=== PATIENT | male | born 1940 | race Caucasian/White ===

== ENCOUNTER 2018-11-28 04:32 | Inpatient (IN) | payer MEDICARE ==
[2018-11-28] MEDS ORDERED: SODIUM CHLORIDE 0.9% 1,000 ML IV STA (04:40)
[2018-11-28] MEDS ORDERED: NITROGLYCERIN OINT 1 INCH/GM PACKET TOPICAL STA (04:40)
--- NOTE | 2018-11-28 04:44 | ED ---
Chest Pain HPI - General Chief Complaint: Chest Pain Stated Complaint: Chest Pain Time Seen by Provider: 11/28/18 04:40 Source: patient, EMS Mode of arrival: EMS Limitations: no limitations - History of Present Illness Initial Comments: Rony is a 78-year-old gentleman with an extensive cardiac history including CABG in his mid 30s or 40s. Patient presents the emergency department today via EMS for evaluation of sudden onset of chest pain. Patient reports he was in his usual state of health throughout the day yesterday he woke around 2 AM with chest pain. He describes the pain as kind of sharp retrosternal with radiation to his back. He reports this doesn't feel like chest pain he's had in the past that he was concerned the pain may be in his lungs. He denies any shortness of breath but does report palpitations. She denies any lightheadedness, diaphoresis or shortness of breath. He reports he got aspirin and nitro in route to the hospital his chest pain improved significantly with the sublingual nitro. - Related Data Home Medications Medication Instructions Recorded Confirmed Aspirin [Golovin Aspirin EC] 81 mg PO DAILY 11/28/18 11/28/18 Carvedilol [Coreg] 3.125 mg PO BID 11/28/18 11/28/18 Doxazosin [Cardura] 4 mg PO DAILY 11/28/18 11/28/18 Isosorbide Mononitrate 35 mg PO BID 11/28/18 11/28/18 Lovastatin [Mevacor] 40 mg PO DAILY 11/28/18 11/28/18 Repaglinide 0.5 mg PO BID 11/28/18 11/28/18 amLODIPine [Norvasc] 5 mg PO DAILY 11/28/18 11/28/18 Allergies Allergy/AdvReac Type Severity Reaction Status Date / Time No Known Allergies Allergy Verified 11/28/18 08:19 Review of Systems ROS Statement: Those systems with pertinent positive or pertinent negative responses have been documented in the HPI. ROS Other: All systems not noted in ROS Statement are negative. EKG Findings - EKG Comments: EKG Findings:: EKG was obtained at 4:30 AM, rate is 119 rhythm is sinus there is a normal axis, normal intervals, WI 208, QRS 108, QTC is 503, there are no obvious ST elevations or depressions or significant respiratory variation in lead V3. No evidence of acute ischemia or infarction. Past Medical History Past Medical History: No Reported History, Coronary Artery Disease (CAD), Chest Pain / Angina History of Any Multi-Drug Resistant Organisms: None Reported Past Surgical History: Adenoidectomy, Cholecystectomy, Coronary Bypass/CABG Past Psychological History: No Psychological Hx Reported Smoking Status: Former smoker Past Alcohol Use History: None Reported Past Drug Use History: None Reported General Exam - General Exam Comments Initial Comments: Physical Exam GENERAL: Patient is well-developed and well-nourished. Patient is nontoxic and well- hydrated and is in no distress. HENT: Normocephalic, Atraumatic. EYES: PERRL, EOMI PULMONARY: Unlabored respirations. No audible rales rhonchi or wheezing was noted. CARDIOVASCULAR: There is a regular rate and rhythm without any murmurs gallops or rubs. Well-healed midline sternal scar consistent with history of CABG Pulses are present and equal in bilateral upper extremities ABDOMEN: Soft and nontender with normal bowel sounds. SKIN: Skin is clear with no lesions or rashes and otherwise unremarkable. : Deferred NEUROLOGIC: Patient is alert and oriented x3. Moving all extremities spontaneously MUSCULOSKELETAL: Normal extremities with adequate strength and full range of motion. No lower extremity swelling or edema. No calf tenderness. PSYCHIATRIC: Normal psychiatric evaluation. Limitations: no limitations Limitations: no limitations Course Vital Signs 11/28/18 11/28/18 11/28/18 04:33 04:58 05:55 Temperature 98.0 F Pulse Rate 118 H 114 H Pulse Rate [ 120 H Utility Hand ] Respiratory 20 19 Rate Blood Pressure 151/93 140/95 Blood Pressure [Right Arm Sitting] O2 Sat by Pulse 95 96 Oximetry 11/28/18 11/28/18 11/28/18 08:01 08:30 09:30 Temperature 98.8 F Pulse Rate 115 H 117 H Pulse Rate [ 74 Utility Hand ] Respiratory 16 18 23 Rate Blood Pressure 133/82 127/72 Blood Pressure 116/60 [Right Arm Sitting] O2 Sat by Pulse 98 95 95 Oximetry 11/28/18 11/28/18 11/28/18 10:00 10:30 11:00 Temperature Pulse Rate 118 H 117 H 117 H Pulse Rate [ Utility Hand ] Respiratory 21 21 20 Rate Blood Pressure 124/102 121/92 135/91 Blood Pressure [Right Arm Sitting] O2 Sat by Pulse 95 94 L 94 L Oximetry 11/28/18 11/28/18 11/28/18 11:30 12:00 12:30 Temperature Pulse Rate 116 H 117 H 117 H Pulse Rate [ Utility Hand ] Respiratory 13 18 19 Rate Blood Pressure 114/93 134/101 136/95 Blood Pressure [Right Arm Sitting] O2 Sat by Pulse 95 95 95 Oximetry 11/28/18 11/28/18 11/28/18 13:00 13:30 14:00 Temperature Pulse Rate 118 H 116 H 116 H Pulse Rate [ Utility Hand ] Respiratory 28 H 18 7 L Rate Blood Pressure 132/100 132/95 132/97 Blood Pressure [Right Arm Sitting] O2 Sat by Pulse 96 95 96 Oximetry 11/28/18 11/28/18 11/28/18 14:30 15:00 15:30 Temperature Pulse Rate 116 H 116 H 116 H Pulse Rate [ Utility Hand ] Respiratory 19 24 9 L Rate Blood Pressure 149/91 144/96 139/109 Blood Pressure [Right Arm Sitting] O2 Sat by Pulse 95 96 Oximetry 11/28/18 11/28/18 16:00 18:00 Temperature Pulse Rate 117 H Pulse Rate [ Utility Hand ] Respiratory 25 H Rate Blood Pressure 146/96 119/70 Blood Pressure [Right Arm Sitting] O2 Sat by Pulse 95 Oximetry Chest Pain MDM - MDM was seen and evaluated history was obtained from EMS and the patient has sinus patient has significant cardiac history presenting with chest pain. Patient does report he had some chest pain a couple of days ago resolved he didn't seek care. Patient reports he woke from sleep with stabbing chest pain radiating from his chest to his back between the shoulders. Patient reports the pain persisted for some time which prompted him to call 911. History with aspirin and nitro in route to the hospital with resolution of his chest pain. EMS EKG was reviewed which did reveal some possible ST depressions in the lateral leads however there is significant movement artifact repeat EKG will be obtained immediately A repeat EKG appears nonischemic Cardiac workup was obtained Patient was reevaluated and reports that his chest pain is returning despite having the Nitropaste. Patient describes the pain as a stabbing from his sternum to his back. At this time CT angiography of the chest was ordered to evaluate for any possible dissection. Initial troponin is negative however given that the patient is very high risk for cardiac etiology and is not on any anticoagulant or antiplatelet medications I will proceed with heparinization if CTA is negative CTA with no acute findings Patient care was discussed with Dr. tyler who accepts the admission with a consult to cardiology for stable angina and an elderly gentleman with multiple cardiac risk factors and known coronary artery disease. Disposition Clinical Impression: Unstable angina Disposition: ADMITTED IP TO THIS HOSP Is patient prescribed a controlled substance at d/c from ED?: No
[2018-11-28 04:52] LABS: Basophils % (A) 0 %; Eosinophils # (A) 0.3 k/uL (0-0.7); Eosinophils % (A) 4 %; HCT 45.2 % (39.0-53.0); HGB 14.9 gm/dL (13.0-17.5); Lymphocytes # (A) 1.4 k/uL (1.0-4.8); Lymphocytes % (A) 19 %; MCH 30.4 pg (25.0-35.0); MCV 92.2 fL (80.0-100.0); Mean Platelet Volume 7.7; Monocytes # (A) 0.6 k/uL (0-1.0); Monocytes % (A) 8 %; Neutrophils # (A) 4.9 k/uL (1.3-7.7); Neutrophils % (A) 67 %; Platelet Count 170 k/uL (150-450); RDW 13.8 % (11.5-15.5); WBC 7.3 k/uL (3.8-10.6)
--- NOTE | 2018-11-28 05:00 | XR ---
EXAM: XR Chest, 2 Views CLINICAL HISTORY: Chest pain. TECHNIQUE: Frontal and lateral views of the chest. COMPARISON: No relevant prior studies available. FINDINGS: Lungs: Poorly defined left cardiac border and possible subtle basilar opacities which may represent atelectasis. Lungs otherwise clear. Pleural space: No pleural effusion. No pneumothorax. Heart: Cardiac silhouette poorly defined. Mediastinum: Postsurgical changes of the chest. No mediastinal widening. Bones/joints: Osseous degenerative changes. IMPRESSION: 1. Poorly defined left cardiac border and possible subtle basilar opacities which may represent atelectasis. Lungs otherwise appear clear. 2. Postsurgical changes of the chest.
[2018-11-28 05:01] LABS: Partial Thromboplastin Time 23.6 sec (22.0-30.0); Prothrombin Time 10.5 sec (9.0-12.0)
[2018-11-28 05:03] LABS: ALT 31 U/L (21-72); AST 25 U/L (17-59); Albumin 3.9 g/dL (3.5-5.0); Alkaline Phosphatase 74 U/L (38-126); Anion Gap 8 mmol/L; Blood Urea Nitrogen 21 mg/dL (9-20); Calcium 9.4 mg/dL (8.4-10.2); Carbon Dioxide 27 mmol/L (22-30); Chloride 105 mmol/L (98-107); Glucose 143 mg/dL (74-99); Magnesium 2.1 mg/dL (1.6-2.3); Potassium 4.4 mmol/L (3.5-5.1); Sodium 140 mmol/L (137-145); Total Bilirubin 1.4 mg/dL (0.2-1.3); Total Protein 6.5 g/dL (6.3-8.2)
[2018-11-28 05:28] LABS: Creatine Kinase MB 0.6 ng/mL (0.0-2.4); Troponin I 0.032 ng/mL (0.000-0.034)
[2018-11-28] MEDS ORDERED: CARVEDILOL 3.125 MG TAB PO STA (05:47)
[2018-11-28] MEDS ORDERED: ATORVASTATIN 20 MG TAB PO STA (05:47)
[2018-11-28] MEDS ORDERED: amLODIPine 5 MG TAB PO STA (05:47)
[2018-11-28] MEDS ORDERED: HEPARIN SODIUM,PORCINE 5,000 UNIT/ML 1 ML VIAL IV PRN (05:50)
[2018-11-28] MEDS ORDERED: HEPARIN SODIUM,PORCINE 5,000 UNIT/ML 1 ML VIAL IV ONE (05:50)
[2018-11-28] MEDS ORDERED: NALOXONE 0.4 MG/ML 1 ML VIAL IV PRN (07:08)
--- NOTE | 2018-11-28 08:01 | CT ---
EXAM: CT Angiography Chest With Intravenous Contrast CLINICAL HISTORY: Pain. TECHNIQUE: Axial computed tomographic angiography images of the chest with intravenous contrast using pulmonary embolism protocol. MIP reconstructed images were created and reviewed. Coronal and sagittal reformatted images were created and reviewed. CTDI is 11.7 mGy and DLP is 450.3 mGy-cm. This CT exam was performed using one or more of the following dose reduction techniques: automated exposure control, adjustment of the mA and/or kV according to patient size, and/or use of iterative reconstruction technique. COMPARISON: No relevant prior studies available. FINDINGS: Pulmonary arteries: No evidence of pulmonary embolism. Aorta: Atherosclerotic vascular disease. No thoracic aortic aneurysm. Great vessels of aortic arch: Lungs: Mild scattered atelectasis. No focal consolidation or pulmonary edema. Pleural space: No pleural effusion. No pneumothorax. Heart: Mild enlargement of left cardiac chambers. Coronary artery disease. No pericardial effusion. Bones/joints: Osseous degenerative changes. No acute fracture. No dislocation. Sternotomy wires and postsurgical changes of the chest. Soft tissues: Unremarkable. Lymph nodes: Unremarkable. No enlarged lymph nodes. Visualized upper abdomen: No evidence of acute abnormality in the visualized upper abdomen. IMPRESSION: 1. No evidence of pulmonary embolism or other acute chest abnormality to account for pain. 2. Atherosclerotic vascular disease without thoracic aortic aneurysm. 3. Mild scattered atelectasis. No focal consolidation or pulmonary edema. 4. Mild left cardiac enlargement. No pericardial effusion.
[2018-11-28] MEDS: HEPARIN SOD,PORK IN 0.45% NACL 25,000 UNIT in 0.45% NACL 1 250ML.BAG IV SCH (08:26)
[2018-11-28] MEDS: ISOSORBIDE MONONITRATE 20 MG TAB PO SCH ×2 (08:26→17:31)
[2018-11-28] MEDS: SODIUM CHLORIDE 0.9% 1,000 ML IV SCH ×2 (08:32→17:32)
[2018-11-28] MEDS ORDERED: DOXAZOSIN 4 MG TAB PO SCH (09:00)
[2018-11-28 13:53] LABS: Creatine Kinase MB 4.5 ng/mL (0.0-2.4)
[2018-11-28 14:17] LABS: Troponin I 0.433 ng/mL (0.000-0.034)
--- NOTE | 2018-11-28 14:57 | P.HPIM ---
History of Present Illness This is a pleasant 78 years old female with past medical history of coronary artery disease, hypertension, hyperlipidemia, diabetes mellitus, presents because of chest pain. Patient states that about couple days ago he developed chest pain, and that went away. However he woke up this morning about 2:00 in the morning he was going to the bathroom when he noticed that having the same chest pain which was getting more severe and he rated at 7/1 ,. Of note the patient although is called the chest pain he actually his pain in the left arm and the back with nothing in his chest, patient says that he has previous to heart attack before and usually lasts how he comes pain of the same places and the same feeling however this time is more severe. [place] like burning. However with therapy currently his chest pain came back to 0/10 Masters a history as pain-free. No associated sweating, no dizziness or lightheadedness, he has some chest tightness but no dyspnea. No nausea vomiting. Usually his heart rate 60 however currently on this admission his heart rate was going up around 120. Patient states that usually he takes aspirin 81 mg and he got 1 dose this morning by the ambulance staff. On admission her Vitas looks stable however she's been tachycardic around 120. CBC and BMP and liver enzymes were unremarkable however her troponin was trending up from 0.03 up to 0.43. EKG showing sinus tachycardia at 119 with QTC [address] elevation. Ordered by emergency staff, She has negative CTPA for pulmonary embolism, no aortic aneurysm. In the emergency room she is already started on heparin drip. Started on normal saline at 100 mL per hour Review of Systems CONSTITUTIONAL: No fever, no malaise, no fatigue. HEENT: No recent visual problems or hearing problems. Denied any sore throat. CARDIOVASCULAR: No orthopnea, PND, no palpitations, no syncope. PULMONARY: No shortness of breath, no cough, no hemoptysis. GASTROINTESTINAL: No diarrhea, no nausea, no vomiting, no abdominal pain. Normoactive bowel sounds. NEUROLOGICAL: No headaches, no weakness, no numbness. HEMATOLOGICAL: Denies any bleeding or petechiae. GENITOURINARY: Denies any burning micturition, frequency, or urgency. MUSCULOSKELETAL/RHEUMATOLOGICAL: Denies any joint pain, swelling, or any muscle pain. ENDOCRINE: Denies any polyuria or polydipsia. Past Medical History Past Medical History: No Reported History, Coronary Artery Disease (CAD), Chest Pain / Angina History of Any Multi-Drug Resistant Organisms: None Reported Past Surgical History: Adenoidectomy, Cholecystectomy, Coronary Bypass/CABG Past Psychological History: No Psychological Hx Reported Smoking Status: Former smoker Past Alcohol Use History: None Reported Past Drug Use History: None Reported Medications and Allergies Home Medications Medication Instructions Recorded Confirmed Type Aspirin [Parke Aspirin EC] 81 mg PO DAILY 11/28/18 11/28/18 History Carvedilol [Coreg] 3.125 mg PO BID 11/28/18 11/28/18 History Doxazosin [Cardura] 4 mg PO DAILY 11/28/18 11/28/18 History Isosorbide Mononitrate 35 mg PO BID 11/28/18 11/28/18 History Lovastatin [Mevacor] 40 mg PO DAILY 11/28/18 11/28/18 History Repaglinide 0.5 mg PO BID 11/28/18 11/28/18 History amLODIPine [Norvasc] 5 mg PO DAILY 11/28/18 11/28/18 History Allergies Allergy/AdvReac Type Severity Reaction Status Date / Time No Known Allergies Allergy Verified 11/28/18 08:19 Physical Exam Vitals: Vital Signs Temp Pulse Pulse Resp BP Pulse Ox 11/28/18 10:00 118 H 21 124/102 95 11/28/18 09:30 117 H 23 127/72 95 11/28/18 08:30 115 H 18 133/82 95 11/28/18 05:55 114 H 19 140/95 96 11/28/18 04:58 120 H 11/28/18 04:33 98.0 F 118 H 20 151/93 95 Intake and Output 11/27/18 11/28/18 11/28/18 22:59 06:59 14:59 Intake Total 54.725 Balance 54.725 Intake: Intake, IV Titration 54.725 Amount Heparin Sod,Pork in 0.45% 54.725 NaCl 25,000 unit In 0.45 % NaCl 1 250ml.bag @ 9 UNITS/KG/HR 9.92 mls/hr IV .Q24H [facility] Rx#: [id number] Other: Weight 110.223 kg GENERAL: The patient is alert and oriented x3, not in any acute distress. Well developed, well nourished. HEENT: Pupils are round and equally reacting to light. EOMI. No scleral icterus. No conjunctival pallor. Normocephalic, atraumatic. No pharyngeal erythema. No thyromegaly. CARDIOVASCULAR: S1 and S2 present. No murmurs, rubs, or gallops. PULMONARY: Chest is clear to auscultation, no wheezing or crackles. ABDOMEN: Soft, nontender, nondistended, normoactive bowel sounds. No palpable organomegaly. MUSCULOSKELETAL: No joint swelling or deformity. EXTREMITIES: No cyanosis, clubbing, or pedal edema. NEUROLOGICAL: Gross neurological examination did not reveal any focal deficits. SKIN: No rashes. Results CBC & Chem 7: 11/28/18 04:42 11/28/18 04:42 Labs: Abnormal Lab Results - Last 24 Hours (Table) 11/28/18 11/28/18 11/28/18 Range/Units 04:42 12:39 12:39 APTT 78.2 H (22.0-30.0) sec BUN 21 H (9-20) mg/dL Glucose 143 H (74-99) mg/dL Total Bilirubin 1.4 H (0.2-1.3) mg/dL CK-MB (CK-2) 4.5 H (0.0-2.4) ng/mL Troponin I 0.433 H* (0.000-0.034) ng/mL Assessment and Plan Assessment: Chest pain, Mostly non-STEMI Tachycardia, mostly secondary to above History of coronary artery disease Essential hypertension Hyperlipidemia Diabetes mellitus Plan: This is a pleasant 78 years old male who presents because of non-STEMI. Continue with aspirin and anticoagulation as per cardiology team. Cardiology has been already consulted. Continue with pain management Labs and medication were reviewed.. Continue same treatment. Continue with symptomatic treatment. Resume home medication. Monitor lytes and vitals. DVT and GI prophylaxis. Further recommendations of the clinical course of the patient DVT prophylaxis: heparin GI Prophylaxis: Pepcid Prognosis is guarded
[2018-11-28] MEDS ORDERED: DILTIAZEM DRIP BOLUS FROM BAG 1 MG SOLN IV ONE (16:43)
[2018-11-28 17:13] LABS: Troponin I 1.03 ng/mL (0.000-0.034)
[2018-11-28] MEDS: DILTIAZEM 50 MG in SODIUM CHLORIDE 0.9% 40 ML IV SCH ×2 (17:24→21:11)
[2018-11-28] MEDS: DOXAZOSIN 4 MG TAB PO SCH (22:23)
[2018-11-29 02:37] LABS: Basophils % (A) 1 %; Eosinophils # (A) 0.3 k/uL (0-0.7); Eosinophils % (A) 3 %; HCT 42.7 % (39.0-53.0); HGB 13.1 gm/dL (13.0-17.5); Lymphocytes # (A) 1.4 k/uL (1.0-4.8); Lymphocytes % (A) 15 %; MCH 29.6 pg (25.0-35.0); MCHC 30.8 g/dL (31.0-37.0); MCV 96.3 fL (80.0-100.0); Mean Platelet Volume 7.3; Monocytes # (A) 0.7 k/uL (0-1.0); Monocytes % (A) 7 %; Neutrophils # (A) 6.8 k/uL (1.3-7.7); Neutrophils % (A) 72 %; Platelet Count 180 k/uL (150-450); RBC 4.43 m/uL (4.30-5.90); RDW 13.9 % (11.5-15.5); WBC 9.4 k/uL (3.8-10.6)
[2018-11-29] MEDS: DILTIAZEM 50 MG in SODIUM CHLORIDE 0.9% 40 ML IV SCH ×3 (04:02→12:37)
[2018-11-29] MEDS: SODIUM CHLORIDE 0.9% 1,000 ML IV SCH ×2 (04:03→12:43)
[2018-11-29] MEDS: HEPARIN SOD,PORK IN 0.45% NACL 25,000 UNIT in 0.45% NACL 1 250ML.BAG IV SCH (05:05)
[2018-11-29 05:25] LABS: Glucose,Whole Blood 122 mg/dL (75-99)
[2018-11-29] MEDS: ISOSORBIDE MONONITRATE 20 MG TAB PO SCH ×2 (08:38→22:38)
[2018-11-29] MEDS: ATORVASTATIN 40 MG TAB PO SCH (08:38)
[2018-11-29] MEDS ORDERED: METOPROLOL SUCCINATE (ER) 25 MG TAB.ER.24H PO SCH (09:00)
[2018-11-29 09:52] LABS: Cholesterol 114 mg/dL (<200); HDL Cholesterol 41 mg/dL (40-60); LDL Cholesterol,Calculated 48 mg/dL (0-99); Triglycerides 123 mg/dL (<150)
--- NOTE | 2018-11-29 12:04 | CONS ---
CONSULTATION Mr. Gruber is a 78-year-old gentleman who is seen in the emergency room for cardiac evaluations. The patient's electronic medical records and charts, EKGs were reviewed and discussed the condition with the nurse. The patient has a known history of coronary artery disease with a prior history of coronary artery bypass surgery times two. According to him, the last cardiac surgery was done about 36 years ago and has been doing fairly well. He is regularly followed by Dr. Brock Velasquez. He woke up this morning with a complaint of pain in both arms, back pain as well as chest tightness. The pain persisted. He did not have any nausea or vomiting. He was slightly diaphoretic and the patient came to the emergency room. In the emergency room, patient was noticed to be tachycardic. According to the patient, he usually runs a heart rate of 60. A CT scan was negative for pulmonary embolism. At present the patient is comfortable. PAST MEDICAL HISTORY: Includes a history of coronary artery bypass surgery, appendicectomy, cholecystectomy. HOME MEDICATIONS: Home medications included: Aspirin once a day, Coreg 3.125 mg b.i.d., Cardura, Amlodipine 5 mg a day. PHYSICAL EXAMINATION: At present reveals a 78 -year-old acute distress. The patient's heart rate is 120 to 125. It appears to be irregularly irregular. Blood pressure is 143/83 mmHg. HEENT: Head and ENT examination is negative. NECK is supple. There is no increase in jugular venous pressure. Both the carotid pulses are felt. There is no bruit. CHEST: Symmetrical. HEART: The PMI is not felt. First and 2nd sounds are heard. LUNGS: Fairly clear to auscultation and percussion. ABDOMEN: Soft. Liver and spleen not enlarged. Bowel sounds are heard. Chest x-ray does not show any significant failure. Second troponin is . FINAL IMPRESSION: 1. This patient came to the emergency room with a complaint of chest discomfort. The patient has elevated cardiac enzymes suggestive of non ST-segment elevation myocardial infarction. The patient's BNP level is normal. 2. Patient is in atrial flutter with 2-1 conduction. RECOMMENDATIONS: At present, I will start the patient on Cardizem drip to control the rate and continue to follow serial troponins. Echo and Doppler study will be done. After the patient's heart rate is controlled, patient will need further evaluation with a cardiac catheterization. Patient's overall long-term prognosis is guarded. MMODL / IJN: [id number] /
[2018-11-29] MEDS: METOPROLOL TARTRATE 50 MG TAB PO SCH ×2 (12:38→22:34)
[2018-11-29] MEDS: ASPIRIN 81 MG PO SCH (12:38)
[2018-11-29] MEDS: FUROSEMIDE 10 MG/ML 2 ML VIAL IV SCH ×2 (12:39→22:34)
[2018-11-29] MEDS ORDERED: IPRATROPIUM-ALBUTEROL 3 ML NEB INHALATION PRN (13:40)
--- NOTE | 2018-11-29 14:44 | CONS ---
STELLA Uribe is a 78-year-old gentleman with history of coronary artery disease status post CABG, who was admitted to the hospital with chest pain and ruled in for myocardial infarction. He also has new onset atrial fibrillation with somewhat of a poorly controlled ventricular rate. At the time of my evaluation this morning he is chest pain-free, hemodynamically stable and in no apparent distress. Dr. Brock Velasquez is his primary registered nurse cardiovascular icu. I asked him to do heart catheterization on him. He will do this tomorrow. EXAM: Patient appears comfortable at rest. Afebrile. Heart rate is 110 beats per minute. Blood pressure is 130/86, respiratory rate is 18, O2 sat is 94%. There is jugular venous distention. Chest exam reveals good air entry bilaterally. Heart exam reveals first and second heart sounds. No gallop. Abdomen is soft. Exam of extremities did not reveal any edema. Peripheral pulses are felt. LABS: Show that the hemoglobin is 13.1. Troponins are elevated at 0.03, 0.4 and 1. BNP is 1090. Creatinine is 0.87. We do not have a lipid profile, will obtain it. ASSESSMENT: Acute non ST-segment elevation myocardial infarction. PLAN: The patient is currently on IV heparin which I am going to continue. Dr. Velasquez will review his old records and schedule him for a catheterization tomorrow. JOSE MANUEL / JAYLYNN: [id number] /
--- NOTE | 2018-11-29 16:35 | P.PN ---
Subjective 72-year-old admitted secondary to acute non-ST elevation microinfarction and the atrial fibrillation with rapid unclear rate. Patient on IV heparin will undergo cardiac catheterization tomorrow patient is presently on Cardizem. Patient is on Eliquis which is being held at this time. Constitutional: Denied any fatigue denied any fever. Cardio vascular: denied any chest pain, palpitations Gastrointestinal denied any nausea vomiting Pulmonary: Denied any shortness of breath cough Neurologic denied any new focal deficits All inpatient medications were reviewed and appropriate changes in these medications as dictated in the interval history and assessment and plan. Objective - Vital Signs Vital signs: Vital Signs Temp 97.7 F 11/29/18 16:00 Pulse 63 11/29/18 16:00 Resp 18 11/29/18 16:00 BP 127/86 11/29/18 16:00 Pulse Ox 97 11/29/18 16:00 Intake & Output 11/28/18 11/29/18 11/29/18 18:59 06:59 18:59 Intake Total 54.725 885.365 185.833 Output Total 550 1000 Balance 54.725 335.365 -814.167 Weight 110.223 kg Intake: Intake, IV Titration 54.725 685.365 185.833 Amount Diltiazem 50 mg In Sodium 87.833 85.833 Chloride 0.9% 40 ml @ 10 MG/HR 10 mls/hr IV .Q5H [facility] Rx#:[id number] Heparin Sod,Pork in 0.45% 54.725 97.532 NaCl 25,000 unit In 0.45 % NaCl 1 250ml.bag @ 9 UNITS/KG/HR 9.92 mls/hr IV .Q24H [facility] Rx#: [id number] Sodium Chloride 0.9% 1, 500 100 000 ml @ 100 mls/hr IV . Q10H [facility] Rx#:[id number] Oral 200 Output: Urine 550 1000 Other: Voiding Method Toilet # Voids 2 - Exam PHYSICAL EXAMINATION: GENERAL: The patient is alert and oriented x3, not in any acute distress. Well developed, well nourished. HEENT: Pupils are round and equally reacting to light. EOMI. No scleral icterus. No conjunctival pallor. Normocephalic, atraumatic. No pharyngeal erythema. No thyromegaly. CARDIOVASCULAR: S1 and S2 present. No murmurs, rubs, or gallops. PULMONARY: She does have minimal expiratory wheeze on exam denied any history of COPD or asthma ABDOMEN: Soft, nontender, nondistended, normoactive bowel sounds. No palpable organomegaly. MUSCULOSKELETAL: No joint swelling or deformity. EXTREMITIES: No cyanosis, clubbing, or pedal edema. NEUROLOGICAL: Gross neurological examination did not reveal any focal deficits. SKIN: No rashes. - Labs CBC & Chem 7: 11/29/18 02:02 11/28/18 04:42 Labs: Abnormal Lab Results - Last 24 Hours (Table) 11/28/18 11/29/18 11/29/18 Range/Units 16:03 02:02 02:02 MCHC 30.8 L (31.0-37.0) g/dL APTT 42.2 H (22.0-30.0) sec POC Glucose (mg/dL) (75-99) mg/dL CK-MB (CK-2) 7.0 H (0.0-2.4) ng/mL Troponin I 1.030 H* (0.000-0.034) ng/mL 11/29/18 11/29/18 Range/Units 05:23 08:52 MCHC (31.0-37.0) g/dL APTT 49.5 H (22.0-30.0) sec POC Glucose (mg/dL) 122 H (75-99) mg/dL CK-MB (CK-2) (0.0-2.4) ng/mL Troponin I (0.000-0.034) ng/mL Assessment and Plan Plan: 1 acute non-ST elevation microinfarction patient will undergo cardiac catheterization tomorrow continue with heparin antiplatelet therapy beta neelima and statin. -Atrial fibrillation with rapid unclear rate: Can you with the IV heparin continued beta neelima as well as that'll has IV -History of coronary artery disease -Possible asthma with mild acute exacerbation patient will be started on inhaled steroids and inhalational treatments -Essential hypertension -Hyperlipidemia -Type 2 diabetes mellitus
[2018-11-29] MEDS: IPRATROPIUM-ALBUTEROL 3 ML NEB INHALATION SCH ×2 (16:42→20:41)
[2018-11-29 17:43] LABS: Glucose,Whole Blood 121 mg/dL (75-99)
[2018-11-29] MEDS: SYMBICORT 80-4.5 MCG INHALER INHALATION SCH (20:42)
[2018-11-29 21:26] LABS: Glucose,Whole Blood 136 mg/dL (75-99)
[2018-11-29] MEDS: DOXAZOSIN 4 MG TAB PO SCH (22:34)
[2018-11-29] MEDS: LACTATED RINGERS 1,000 ML IV SCH (22:35)
[2018-11-30 05:45] LABS: Glucose,Whole Blood 122 mg/dL (75-99)
[2018-11-30] MEDS: ISOSORBIDE MONONITRATE 20 MG TAB PO SCH ×2 (06:53→15:12)
[2018-11-30] MEDS: METOPROLOL TARTRATE 50 MG TAB PO SCH ×2 (06:54→20:58)
[2018-11-30] MEDS: ASPIRIN 81 MG PO SCH (06:54)
[2018-11-30] MEDS: ATORVASTATIN 40 MG TAB PO SCH (06:54)
[2018-11-30] MEDS ORDERED: IV FLUID CONTINUATION 1,000 ML IV ONE (07:20)
--- NOTE | 2018-11-30 07:26 | ECHOF ---
Referral Reason:Chest pain MEASUREMENTS -------- HEIGHT: 165.1 cm WEIGHT: 109.8 kg BP: 132/68 RVIDd: 2.4 cm (< 3.3) IVSd: 1.2 cm (0.6 - 1.1) LVIDd: 5.3 cm (3.9 - 5.3) LVPWd: 1.4 cm (0.6 - 1.1) IVSs: 1.4 cm LVIDs: 4.4 cm LVPWs: 1.7 cm LA Diam: 5.1 cm (2.7 - 3.8) LAESV Index (A-L): 39.83 ml/m Ao Diam: 3.3 cm (2.0 - 3.7) AV Cusp: 1.3 cm (1.5 - 2.6) LA Diam: 4.5 cm (2.7 - 3.8) MV EXCURSION: 23.601 mm (> 18.000) MV EF SLOPE: 106 mm/s (70 - 150) EPSS: 1.0 cm MV E Rodrick: 0.57 m/s MV DecT: 207 ms MV A Rodrick: 0.86 m/s MV E/A Ratio: 0.67 AR PHT: 261 ms RAP: 5.00 mmHg RVSP: 27.59 mmHg FINDINGS -------- Undetermined rhythm. This was a techncally difficult study with suboptimal views, , Lumason utilized for enhancement of im ages. The left ventricular size is normal. There is mild concentric left ventricular hypertrophy. Overa ll left ventricular systolic function is moderately impaired with, an EF between 35 - 40 %. Inferio r Hypokinesis The right ventricle is normal in size. Paradoxical motion of the right ventricular septum is consis tent with post operative status. The left atrium is markedly dilated. LA is severely dilated >40 ml/m2 The right atrial size is normal. 5.0mg OF Lumason UTLIZED: 2 OR MORE WALL SEGMENTS NOT VISUALIZED. There is mild aortic valve sclerosis. There is mild aortic regurgitation. Mild mitral annular calcification present. Esws-dw-vkcmzhve mitral regurgitation is present. Mild tricuspid regurgitation present. There is no evidence of pulmonary hypertension. The right v entricular systolic pressure, as measured by Doppler, is 27.59mmHg. Trace/mild (physiologic) pulmonic regurgitation. The aortic root size is normal. There is no pericardial effusion. CONCLUSIONS -------- 1. This was a techncally difficult study with suboptimal views, , Lumason utilized for enhancement of images. 2. The left ventricular size is normal. 3. There is mild concentric left ventricular hypertrophy. 4. Inferior Hypokinesis 5. The right ventricle is normal in size. 6. The left atrium is markedly dilated. 7. LA is severely dilated >40 ml/m2 8. The right atrial size is normal. 9. 5.0mg OF Lumason UTLIZED: 2 OR MORE WALL SEGMENTS NOT VISUALIZED. 10. There is mild aortic valve sclerosis. 11. There is mild aortic regurgitation. 12. Mild mitral annular calcification present. 13. Vqym-bt-sbpwamzi mitral regurgitation is present. 14. Mild tricuspid regurgitation present. 15. There is no evidence of pulmonary hypertension. 16. The right ventricular systolic pressure, as measured by Doppler, is 27.59mmHg. 17. Trace/mild (physiologic) pulmonic regurgitation. 18. The aortic root size is normal. 19. There is no pericardial effusion. LONG TERM CARE PHLEBOTOMIST: Sol Talbot RDCS
[2018-11-30] MEDS: SODIUM CHLORIDE 0.9% 1,000 ML IV SCH ×2 (07:39→11:58)
[2018-11-30] MEDS: HEPARIN SOD,PORK IN 0.45% NACL 25,000 UNIT in 0.45% NACL 1 250ML.BAG IV SCH ×2 (07:40→13:00)
[2018-11-30] MEDS ORDERED: MIDAZOLAM 2 MG/2 ML VIAL IV ONE (07:44)
[2018-11-30] MEDS ORDERED: LIDOCAINE 1% INJ 10MG/ML (20 ML MDV) SQ ONE (07:46)
[2018-11-30 07:57] LABS: Basophils % (A) 0 %; Eosinophils # (A) 0.3 k/uL (0-0.7); Eosinophils % (A) 5 %; HCT 39.5 % (39.0-53.0); HGB 13.3 gm/dL (13.0-17.5); Lymphocytes # (A) 1.4 k/uL (1.0-4.8); Lymphocytes % (A) 20 %; MCH 30.9 pg (25.0-35.0); MCHC 33.5 g/dL (31.0-37.0); MCV 92.1 fL (80.0-100.0); Mean Platelet Volume 7.7; Monocytes # (A) 0.5 k/uL (0-1.0); Monocytes % (A) 7 %; Neutrophils # (A) 4.6 k/uL (1.3-7.7); Neutrophils % (A) 65 %; Platelet Count 172 k/uL (150-450); RBC 4.29 m/uL (4.30-5.90); RDW 13.8 % (11.5-15.5)
[2018-11-30 08:07] LABS: Anion Gap 7 mmol/L; Blood Urea Nitrogen 15 mg/dL (9-20); Calcium 8.6 mg/dL (8.4-10.2); Carbon Dioxide 26 mmol/L (22-30); Chloride 107 mmol/L (98-107); Glucose 122 mg/dL (74-99); Sodium 140 mmol/L (137-145)
[2018-11-30] MEDS ORDERED: IOPAMIDOL-370 100ML BTL INJ ONE (08:08)
[2018-11-30] MEDS ORDERED: FUROSEMIDE 10 MG/ML 4 ML VIAL ONE (08:09)
[2018-11-30] MEDS ORDERED: IOPAMIDOL-370 50ML BTL INJ ONE (08:09)
[2018-11-30 08:14] LABS: Potassium 4.6 mmol/L (3.5-5.1)
[2018-11-30] MEDS ORDERED: FUROSEMIDE 10 MG/ML 4 ML VIAL IV ONE (08:16)
[2018-11-30] MEDS ORDERED: SODIUM CHLORIDE 0.9% 1,000 ML IV SCH (08:30)
[2018-11-30] MEDS: IPRATROPIUM-ALBUTEROL 3 ML NEB INHALATION SCH ×4 (10:00→21:22)
[2018-11-30] MEDS: SYMBICORT 80-4.5 MCG INHALER INHALATION SCH ×2 (10:00→21:22)
[2018-11-30] MEDS: FUROSEMIDE 10 MG/ML 2 ML VIAL IV SCH ×2 (10:02→20:58)
--- NOTE | 2018-11-30 10:51 | P.PN ---
Subjective 72-year-old admitted secondary to acute non-ST elevation microinfarction and the atrial fibrillation with rapid unclear rate. Patient on IV heparin will undergo cardiac catheterization tomorrow patient is presently on Cardizem. Patient is on Eliquis which is being held at this time. 11/30/2018 Patient underwent carotid to the utilization which did not show any true sclerotic coronary occlusive disease. Patient's symptomatology was considered secondary to atrial fibrillation and patient will undergo cardioversion today Constitutional: Denied any fatigue denied any fever. Cardio vascular: denied any chest pain, palpitations Gastrointestinal denied any nausea vomiting Pulmonary: Denied any shortness of breath cough Neurologic denied any new focal deficits All inpatient medications were reviewed and appropriate changes in these medications as dictated in the interval history and assessment and plan. Objective - Vital Signs Vital signs: Vital Signs Temp 98.5 F 11/30/18 04:00 Pulse 105 H 11/30/18 09:21 Resp 18 11/30/18 09:21 BP 109/70 11/30/18 09:21 Pulse Ox 99 11/30/18 09:21 Intake & Output 11/29/18 11/30/18 11/30/18 18:59 06:59 18:59 Intake Total 185.833 Output Total 1000 1000 675 Balance -814.167 -1000 -675 Weight 88.3 kg Intake: Intake, IV Titration 185.833 Amount Diltiazem 50 mg In Sodium 85.833 Chloride 0.9% 40 ml @ 10 MG/HR 10 mls/hr IV .Q5H ZENIA Rx#:[id number] Sodium Chloride 0.9% 1, 100 000 ml @ 100 mls/hr IV . Q10H ZENIA Rx#:[id number] Output: Urine 1000 1000 675 Other: Voiding Method Toilet Toilet # Voids 1 - Exam PHYSICAL EXAMINATION: GENERAL: The patient is alert and oriented x3, not in any acute distress. Well developed, well nourished. HEENT: Pupils are round and equally reacting to light. EOMI. No scleral icterus. No conjunctival pallor. Normocephalic, atraumatic. No pharyngeal erythema. No thyromegaly. CARDIOVASCULAR: S1 and S2 present. No murmurs, rubs, or gallops. PULMONARY: Improved wheezing ABDOMEN: Soft, nontender, nondistended, normoactive bowel sounds. No palpable organomegaly. MUSCULOSKELETAL: No joint swelling or deformity. EXTREMITIES: No cyanosis, clubbing, or pedal edema. NEUROLOGICAL: Gross neurological examination did not reveal any focal deficits. SKIN: No rashes. - Labs CBC & Chem 7: 11/30/18 07:11 11/30/18 07:11 Labs: Abnormal Lab Results - Last 24 Hours (Table) 11/29/18 11/29/18 11/30/18 Range/Units 17:41 21:24 05:43 RBC (4.30-5.90) m/uL Glucose (74-99) mg/dL POC Glucose (mg/dL) 121 H 136 H 122 H (75-99) mg/dL 11/30/18 11/30/18 Range/Units 07:11 07:11 RBC 4.29 L (4.30-5.90) m/uL Glucose 122 H (74-99) mg/dL POC Glucose (mg/dL) (75-99) mg/dL Assessment and Plan Plan: 1 elevated troponins probably secondary to atrial fibrillation patient underwent cardiac catheterization did not show any significant stent table atherosclerotic coronary occlusive disease -Atrial fibrillation with rapid ventricular rate: She'll be continued on IV heparin patient will undergo cardioversion today -History of coronary artery disease -Possible asthma with mild acute exacerbation patient will be started on inhaled steroids and inhalational treatments with significant improvement in his symptoms -Essential hypertension -Hyperlipidemia -Type 2 diabetes mellitus
[2018-11-30] MEDS: DOXAZOSIN 4 MG TAB PO SCH (20:58)
--- NOTE | 2018-12-01 03:13 | CC ---
CARDIAC CATHETERIZATION REPORT DATE OF SERVICE: 11/30/2018. PROCEDURE: Left heart catheterization, coronary angiography, selective injection of the left internal mammary artery graft and left ventriculography. PERFORMED BY: Dr. Brock Velasquez. CLINICAL INFORMATION: Mr. Rony Gruber is a 78-year-old gentleman with a known history of type 2 diabetes, hypertension and hyperlipidemia. This gentleman has a long history of CAD. In 1976 he underwent aortocoronary bypass surgery with 2 vein grafts to the LAD and RCA. These grafts were occluded in 1982 and he underwent in [facility] JACOBS to LAD, vein graft to the first diagonal and a vein graft to the PDA branch of RCA. Subsequently I evaluated the patient in the early and performed PTCA of mid circumflex in 1992 as well as multiple PTCAs of the vein graft to the RCA at the ostium and insertion site on multiple occasions. Last cardiac catheterization in 1996 revealed that his pokagon RCA as well as vein graft to the RCA and pokagon LAD were occluded, but circumflex was patent and JACOBS to LAD was patent. He was treated medically and has been doing well. He presented to [facility] with chest pain suggestive of angina with elevated troponin and atrial fibrillation with rapid ventricular rate. After stabilizing the patient and achieving rate control, he was advised coronary angiography. The rationale, risks, benefits and options were carefully explained to the patient and family members. PROCEDURE NOTE: Under local anesthesia and strict aseptic precautions, a 6-Afghan introducer was placed in the right femoral artery. There was significant calcification in his femoral artery and I had some difficulty gaining access. A 6-Afghan introducer was placed in the right femoral artery. I used a standard left Bin catheter for selective coronary angiography of the left coronary artery. A Rodney catheter was used to perform selective coronary angiography of the RCA and the same catheter was used for the JACOBS injection. A pigtail catheter was used to check LV pressures and LV-gram was performed in 30- degree CRAWFORD projection. The sheath was taken out and manual compression used to secure hemostasis. A Femstop was applied and patient was sent to the room in stable condition with good hemostasis and results were discussed with the patient and family. Moderate conscious sedation time was 26 minutes. Patient was administered Versed, and oxygen saturation, hemodynamics and EKG were monitored closely. CARDIAC CATHETERIZATION FINDINGS: The left ventricular end-diastolic pressure was about 18 mmHg without any gradient across the aortic valve. CORONARY ANGIOGRAPHY FINDINGS: RIGHT CORONARY ARTERY: This vessel is totally occluded without much antegrade flow after origin of a conus branch which has minor irregularities. LEFT MAIN CORONARY ARTERY: Short patent vessel free of significant disease that immediately bifurcates into LAD and circumflex. LEFT ANTERIOR DESCENDING CORONARY ARTERY: This vessel is totally occluded, seen as a stump without much antegrade flow. LEFT POSTERIOR CIRCUMFLEX CORONARY ARTERY: There is a 40% ostial disease, unchanged from before. It gives off a first obtuse marginal and a second obtuse marginal. Second obtuse marginal is a larger branch. There is a 30% to 40% lesion at the origin of the circumflex, another 30% to 40% lesion at the origin of the second obtuse marginal. The mid circumflex that was dilated in 1992 is widely patent distally. The circumflex has minor irregularities and gives off several collateral branches to the distal RCA. Circumflex therefore does not have significant disease and the previously dilated mid circumflex is widely patent. LEFT INTERNAL MAMMARY ARTERY GRAFT TO LAD: This graft is widely patent at its origin, course and insertion site, and opacified LAD is free of significant disease and gives off several branches that provide collaterals to the distal branches of RCA. COLLATERAL CIRCULATION: There is a moderate amount of collaterals coming both from the circumflex and LAD supplying the distal branch of the RCA. LEFT VENTRICULOGRAM: This was performed in 30-degree CRAWFORD projection and revealed left ventricle is of normal size with hypokinesia involving the inferior wall and also distal anteroapical wall. Ejection fraction is about 35% to 40% with mild mitral regurgitation. 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 Conus branch of RCA is patent. Circumflex has an ostial lesion of about 40%, mid lesion of about 30%, and a second obtuse marginal of about 40%. Overall there is no significant disease in the dominant circumflex. The JACOBS graft is widely patent, opacifies the entire LAD and also the diagonal branch and several branches. There is a fair amount of collaterals going to the distal branch of the RCA, but compared to the previous report, the collaterals are somewhat diminished. There is LV dysfunction with ejection fraction of about 40% with mild mitral regurgitation with anteroapical and inferior wall hypokinesia. RECOMMENDATIONS: Findings were discussed with the patient and family in great detail. We will pursue medical therapy but will perform electrical cardioversion after transesophageal echo which will hopefully improve patient's functional capacity and also his overall symptoms. This will be hopefully performed in the next 24 hours. JOSE MANUEL / CORA: [id number] /
[2018-12-01 06:28] LABS: Glucose,Whole Blood 122 mg/dL (75-99)
[2018-12-01 06:37] LABS: Basophils % (A) 0 %; Eosinophils # (A) 0.4 k/uL (0-0.7); Eosinophils % (A) 5 %; HCT 39.9 % (39.0-53.0); HGB 13.2 gm/dL (13.0-17.5); Lymphocytes # (A) 1.5 k/uL (1.0-4.8); Lymphocytes % (A) 19 %; MCH 30.5 pg (25.0-35.0); MCV 92.4 fL (80.0-100.0); Mean Platelet Volume 7.9; Monocytes # (A) 0.7 k/uL (0-1.0); Monocytes % (A) 9 %; Neutrophils # (A) 5.2 k/uL (1.3-7.7); Neutrophils % (A) 65 %; Platelet Count 180 k/uL (150-450); RBC 4.32 m/uL (4.30-5.90); RDW 13.9 % (11.5-15.5); WBC 8.1 k/uL (3.8-10.6)
[2018-12-01] MEDS: ISOSORBIDE MONONITRATE 20 MG TAB PO SCH (06:38)
[2018-12-01] MEDS: METOPROLOL TARTRATE 50 MG TAB PO SCH ×2 (06:39→20:16)
[2018-12-01] MEDS: ATORVASTATIN 40 MG TAB PO SCH (06:39)
[2018-12-01] MEDS: ASPIRIN 81 MG PO SCH (06:39)
[2018-12-01] MEDS: FUROSEMIDE 10 MG/ML 2 ML VIAL IV SCH (06:39)
[2018-12-01 06:57] LABS: Anion Gap 6 mmol/L; Blood Urea Nitrogen 15 mg/dL (9-20); Calcium 8.6 mg/dL (8.4-10.2); Carbon Dioxide 29 mmol/L (22-30); Chloride 104 mmol/L (98-107); Glucose 126 mg/dL (74-99); Potassium 3.6 mmol/L (3.5-5.1); Sodium 139 mmol/L (137-145)
[2018-12-01] MEDS: LACTATED RINGERS 1,000 ML IV SCH ×2 (07:55→20:14)
[2018-12-01] MEDS: HEPARIN SOD,PORK IN 0.45% NACL 25,000 UNIT in 0.45% NACL 1 250ML.BAG IV SCH ×2 (07:57→17:56)
[2018-12-01] MEDS: IPRATROPIUM-ALBUTEROL 3 ML NEB INHALATION SCH ×4 (08:10→21:30)
[2018-12-01] MEDS: SYMBICORT 80-4.5 MCG INHALER INHALATION SCH ×2 (08:10→21:30)
[2018-12-01 11:22] LABS: Glucose,Whole Blood 124 mg/dL (75-99)
--- NOTE | 2018-12-01 11:34 | P.PN ---
Subjective 72-year-old admitted secondary to acute non-ST elevation microinfarction and the atrial fibrillation with rapid unclear rate. Patient on IV heparin will undergo cardiac catheterization tomorrow patient is presently on Cardizem. Patient is on Eliquis which is being held at this time. 11/30/2018 Patient underwent Cardiac catheterization which did not show atherosclerotic coronary occlusive disease. Patient's symptomatology was considered secondary to atrial fibrillation and patient will undergo cardioversion today. 12/01/2018 patient is still and out of A. fib was comparing of her chest pain today at the time patient's heart rate was high. Patient probably will undergo cardioversion today Constitutional: Denied any fatigue denied any fever. Cardio vascular: denied any chest pain, palpitations Gastrointestinal denied any nausea vomiting Pulmonary: Denied any shortness of breath cough Neurologic denied any new focal deficits All inpatient medications were reviewed and appropriate changes in these medications as dictated in the interval history and assessment and plan. Objective - Vital Signs Vital signs: Vital Signs Temp 98.1 F 12/01/18 08:00 Pulse 80 12/01/18 08:24 Resp 16 12/01/18 08:00 BP 108/57 12/01/18 08:00 Pulse Ox 95 12/01/18 08:13 Intake & Output 11/30/18 12/01/18 12/01/18 18:59 06:59 18:59 Intake Total 222 Output Total 975 1850 Balance -753 -1850 Weight 87.1 kg Intake: Oral 222 Output: Urine 975 1850 Other: Voiding Method Toilet Toilet Toilet # Voids 1 - Exam PHYSICAL EXAMINATION: GENERAL: The patient is alert and oriented x3, not in any acute distress. Well developed, well nourished. HEENT: Pupils are round and equally reacting to light. EOMI. No scleral icterus. No conjunctival pallor. Normocephalic, atraumatic. No pharyngeal erythema. No thyromegaly. CARDIOVASCULAR: S1 and S2 present. No murmurs, rubs, or gallops. PULMONARY: Improved wheezing ABDOMEN: Soft, nontender, nondistended, normoactive bowel sounds. No palpable organomegaly. MUSCULOSKELETAL: No joint swelling or deformity. EXTREMITIES: No cyanosis, clubbing, or pedal edema. NEUROLOGICAL: Gross neurological examination did not reveal any focal deficits. SKIN: No rashes. - Labs CBC & Chem 7: 12/01/18 05:58 12/01/18 05:58 Labs: Abnormal Lab Results - Last 24 Hours (Table) 11/30/18 12/01/18 12/01/18 Range/Units 17:50 05:58 06:05 APTT 43.7 H 51.5 H (22.0-30.0) sec Glucose 126 H (74-99) mg/dL POC Glucose (mg/dL) (75-99) mg/dL 12/01/18 12/01/18 Range/Units 06:18 11:19 APTT (22.0-30.0) sec Glucose (74-99) mg/dL POC Glucose (mg/dL) 122 H 124 H (75-99) mg/dL Assessment and Plan Plan: 1 elevated troponins probably secondary to atrial fibrillation patient underwent cardiac catheterization did not show any significant stent table atherosclerotic coronary occlusive disease -Atrial fibrillation with rapid ventricular rate: She'll be continued on IV heparin patient will undergo cardioversion today -History of coronary artery disease -Possible asthma with mild acute exacerbation patient will be started on inhaled steroids and inhalational treatments with significant improvement in his symptoms -Essential hypertension -Hyperlipidemia -Type 2 diabetes mellitus
[2018-12-01] MEDS ORDERED: APIXABAN 5 MG TAB PO SCH (13:00)
[2018-12-01] MEDS ORDERED: AMIODARONE 200 MG TAB PO SCH (13:00)
--- NOTE | 2018-12-01 13:09 | CDI ---
Documentation Clarification Form Date: 12/01/2018 1:00:45 PM From: Joy Anders CCS, CCDS Admit Date: 11/30/2018 10:36:00 AM Patient Name: Rony Gruber Visit Number: [id number] Discharge Date: ATTENTION: The Clinical Documentation Specialists (CDI) and [facility] Coding Staff appreciate your assistance in clarifying documentation. Please respond to the clarification below the line at the bottom and electronically sign. The CDI & [facility] Coding staff will review the response and follow-up if needed. Please note: Queries are made part of the Legal Health Record. If you have any questions, please contact the author of this message via ITS. Dr. Hitesh Velasquez: Atrial Fibrillation is documented in the cardiology consults and also in the heart catheterization report as a new onset. History/Risk Factors: CAD w/[place], Hypertension, Hyperlipidemia, DM II, Former smoker. Previous CABG. Clinical Indicators: Presented with chest pain radiating to left arm & back. Ruled in for NSTEMI. EKG/telemetry: R 119 sinus bradycardia Procedure: Left Heart Catheterization: no significant CAD, bypass grafts patent. Pending Cardioversion Treatment: Nitropaste, IV fl 75, IV Heparin & Heparin drip, IV Cardizem & Cardizem drip. In your professional opinion, can you please clarify the type of Atrial Fibrillation, if known? Paroxysmal Persistent Other, please specify Unable to determine (Last Revision: February 2018) New onset Persistent Atrial Fibrillation. MTDD
[2018-12-01] MEDS ORDERED: HEPARIN SODIUM,PORCINE 5,000 UNIT/ML 1 ML VIAL IV PRN (13:49)
[2018-12-01] MEDS: ISOSORBIDE MONONITRATE ER 60 MG TAB.ER.24H PO SCH (14:09)
[2018-12-01 14:21] LABS: INR 1.1 (<1.2); Prothrombin Time 11.2 sec (9.0-12.0)
--- NOTE | 2018-12-01 14:59 | P.PN ---
Subjective Progress Note Date: 12/01/18 This is a 78-year-old gentleman with history of coronary artery disease with prior bypass surgery 2, hypertension, hyperlipidemia, he follows with Dr. TACOS Velasquez in the office. He presented to the hospital on this occasion with symptoms of chest tightness with associated diaphoresis and tachycardia. Computed tomography scan was initially negative for pulmonary embolism. EKG on admission here showed a typical atrial flutter. Cardiac catheterization revealed a total occlusion of the squaxin RCA and LAD. Conus branch of the RCA patent. Circumflex has an ostial lesion of 40% and a mid lesion of 30%, second obtuse marginal of about 40%. Overall no significant disease in the circumflex. The JACOBS graft is widely patent. There is a fair amount of collaterals going to the distal branch of the RCA but compared with prior report the collaterals were somewhat diminished. Ejection fraction 40% with mild mitral regurg and anterior apical and inferior wall hypokinesia. Patient was initially scheduled to undergo a ANKIT and cardioversion yesterday which had to be postponed until today because of availability of anesthesia, again today the procedure had to be postponed. Patient currently in atrial fibrillation with moderately rapid ventricular response. We will start the patient on amiodarone today. Patient also complained of some mild chest discomfort earlier today and for that reason we will increase his nitrates as well. Continue with the IV heparin. Objective - Vital Signs Vital signs: Vital Signs Temp 98.1 F 12/01/18 08:00 Pulse 116 H 12/01/18 12:00 Resp 16 12/01/18 12:00 BP 108/57 12/01/18 08:00 Pulse Ox 97 12/01/18 12:00 Intake & Output 11/30/18 12/01/18 12/01/18 18:59 06:59 18:59 Intake Total 222 Output Total 975 1850 Balance -753 -1850 Weight 87.1 kg Intake: Oral 222 Output: Urine 975 1850 Other: Voiding Method Toilet Toilet Toilet # Voids 1 2 - Exam PHYSICAL EXAMINATION: GENERAL: 78-year-old gentleman in no acute distress at the time of my examination HEENT: Head is atraumatic, normocephalic. Pupils equal, round. Sclera anicteric. Conjunctiva are clear. Mucous membranes of the mouth are moist. Neck is supple. There is no elevated jugular venous pressure. No carotid bruit is heard. HEART EXAMINATION: R S1 and S2 irregularly irregular a systolic murmur is heard CHEST EXAMINATION: Lungs are clear to auscultation and precussion. No chest wall tenderness is noted on palpation or with deep breathing. ABDOMEN: Soft, nontender. Bowel sounds are heard. No organomegaly noted. EXTREMITIES: 2+ peripheral pulses with no evidence of peripheral edema and no calf tenderness noted. Right groin soft, no evidence of any hematoma. NEUROLOGIC patient is awake, alert and oriented 3 . . - Labs CBC & Chem 7: 12/01/18 05:58 12/01/18 05:58 Labs: Abnormal Lab Results - Last 24 Hours (Table) 11/30/18 12/01/18 12/01/18 Range/Units 17:50 05:58 06:05 APTT 43.7 H 51.5 H (22.0-30.0) sec Glucose 126 H (74-99) mg/dL POC Glucose (mg/dL) (75-99) mg/dL 12/01/18 12/01/18 Range/Units 06:18 11:19 APTT (22.0-30.0) sec Glucose (74-99) mg/dL POC Glucose (mg/dL) 122 H 124 H (75-99) mg/dL Assessment and Plan Plan: Assessment and plan #1 chest discomfort with abnormal troponins, likely representing an acute coronary syndrome. Patient did undergo cardiac catheterization, medical therapy advised. #2 atypical atrial flutter #3 chronic atrial fibrillation, on IV heparin, was initially scheduled for ANKIT and cardioversion today #4 hypertension #5 hyperlipidemia #6 diabetes #7 asthma #8 history of coronary artery disease with prior bypass surgery Plan We will continue IV heparin, start the patient on amiodarone, increase nitrates. Keep the patient nothing by mouth after midnight, further recommendations then will be made. DNP note has been reviewed, I agree with a documented findings and plan of care. Patient was seen and examined.
[2018-12-01] MEDS ORDERED: DEXTROSE 5% IN WATER 100 ML with AMIODARONE 150 MG IV ONE (17:00)
[2018-12-01 17:10] LABS: Glucose,Whole Blood 137 mg/dL (75-99)
[2018-12-01] MEDS: FUROSEMIDE 20 MG TAB PO SCH (17:59)
[2018-12-01] MEDS: AMIODARONE 450 MG in DEXTROSE 5% IN WATER 250 ML IV SCH ×2 (17:59)
[2018-12-01] MEDS: SODIUM CHLORIDE 0.9% 1,000 ML IV SCH (20:07)
[2018-12-01] MEDS: DOXAZOSIN 4 MG TAB PO SCH (20:16)
[2018-12-01 20:55] LABS: Glucose,Whole Blood 168 mg/dL (75-99)
[2018-12-02] MEDS: AMIODARONE 450 MG in DEXTROSE 5% IN WATER 250 ML IV SCH ×4 (00:10→17:03)
[2018-12-02 05:54] LABS: Glucose,Whole Blood 135 mg/dL (75-99)
[2018-12-02 07:33] LABS: Basophils % (A) 0 %; Eosinophils # (A) 0.3 k/uL (0-0.7); Eosinophils % (A) 5 %; HCT 37.1 % (39.0-53.0); HGB 12.4 gm/dL (13.0-17.5); Lymphocytes # (A) 1.2 k/uL (1.0-4.8); Lymphocytes % (A) 17 %; MCH 30.9 pg (25.0-35.0); MCHC 33.4 g/dL (31.0-37.0); MCV 92.3 fL (80.0-100.0); Monocytes # (A) 0.6 k/uL (0-1.0); Monocytes % (A) 8 %; Neutrophils # (A) 5.1 k/uL (1.3-7.7); Neutrophils % (A) 68 %; Platelet Count 187 k/uL (150-450); RBC 4.02 m/uL (4.30-5.90); WBC 7.5 k/uL (3.8-10.6)
[2018-12-02] MEDS: SYMBICORT 80-4.5 MCG INHALER INHALATION SCH ×2 (07:56→19:30)
[2018-12-02] MEDS: IPRATROPIUM-ALBUTEROL 3 ML NEB INHALATION SCH ×4 (07:56→19:30)
[2018-12-02] MEDS ORDERED: IV FLUID CONTINUATION 1,000 ML IV ONE (08:06)
[2018-12-02] MEDS ORDERED: LIDOCAINE 1% INJ 10MG/ML (20 ML MDV) ONE (08:09)
[2018-12-02] MEDS ORDERED: PROPOFOL 10 MG/ML 20 ML VIAL IV ONE (08:09)
[2018-12-02] MEDS ORDERED: BENZOCAINE SPRAY 1 CAN MUCOUS MEM ONE (08:15)
[2018-12-02] MEDS: SODIUM CHLORIDE 0.9% 1,000 ML IV SCH ×2 (08:45→20:01)
--- NOTE | 2018-12-02 09:01 | ECHOT ---
TRANSESOPHAGEAL ECHOCARDIOGRAM INDICATION: Persistent atrial fibrillation to rule out intracardiac thrombus. After obtaining informed consent, transesophageal echocardiogram was performed in left lateral position using an Omniplane probe. Local and IV sedation were obtained by the sales project coordinator. The patient tolerated the procedure well without any obvious immediate complications. FINDINGS: 1. There is no intracardiac thrombus within the left atrial appendage, left atrium, right atrium, right ventricle or left ventricle. 2. Left ventricle appears mildly enlarged with inferior wall and septal hypokinesis with an ejection fraction of 4% to 45%. 3. Left atrium, right atrium and right ventricle are within normal limits. 4. Mitral valve: There is mild prolapse of the posterior mitral leaflet with moderate to severe mitral regurgitation. 5. Aortic valve is a 3-leaflet valve. There is mild aortic regurgitation noted. 6. There is mild tricuspid regurgitation noted. 7. Interatrial septum: There is no evidence of ohjs-ej-iowjv shunt by color-flow Doppler or tcoiv-ao-ibvh shunt by agitated saline contrast study. CONCLUSIONS: 1. No evidence of intracardiac thrombus. 2. Moderate left ventricular systolic dysfunction with an ejection fraction of around 40%. Evidence of prior inferior wall myocardial infarction. 3. Moderate to severe mitral regurgitation. 4. Mild aortic regurgitation. PLAN: Patient will proceed with cardioversion. MMODL / IJN: [id number] /
--- NOTE | 2018-12-02 09:16 | CE ---
CARDIAC ELECTROPHYSIOLOGY REPORT CARDIOVERSION: INDICATION: Persistent atrial fibrillation. After obtaining informed consent, electrical cardioversion was performed using 200 joules of DC current delivered in a synchronized fashion. The patient converted to sinus rhythm after a single shock. PLAN: Patient will continue with intravenous heparin that he is currently on. I am going to hold the amiodarone until he recovers from anesthesia so that he does not become hypotensive. After that, we are going to resume him on oral amiodarone. MMTHOMAS / JAYLYNN: [id number] /
[2018-12-02] MEDS: ISOSORBIDE MONONITRATE ER 60 MG TAB.ER.24H PO SCH (10:02)
[2018-12-02] MEDS: ASPIRIN 81 MG PO SCH (10:02)
[2018-12-02] MEDS: METOPROLOL TARTRATE 50 MG TAB PO SCH ×2 (10:03→20:18)
[2018-12-02] MEDS: FUROSEMIDE 20 MG TAB PO SCH ×2 (10:03→17:07)
--- NOTE | 2018-12-02 10:39 | P.PN ---
Subjective 72-year-old admitted secondary to acute non-ST elevation microinfarction and the atrial fibrillation with rapid unclear rate. Patient on IV heparin will undergo cardiac catheterization tomorrow patient is presently on Cardizem. Patient is on Eliquis which is being held at this time. 11/30/2018 Patient underwent Cardiac catheterization which did not show atherosclerotic coronary occlusive disease. Patient's symptomatology was considered secondary to atrial fibrillation and patient will undergo cardioversion today. 12/01/2018 patient is still and out of A. fib was comparing of her chest pain today at the time patient's heart rate was high. Patient probably will undergo cardioversion today 12/02/2017 Patient had y cardioversion patient is presently sinus rhythm heart rate in 50s. Constitutional: Denied any fatigue denied any fever. Cardio vascular: denied any chest pain, palpitations Gastrointestinal denied any nausea vomiting Pulmonary: Denied any shortness of breath cough Neurologic denied any new focal deficits All inpatient medications were reviewed and appropriate changes in these medications as dictated in the interval history and assessment and plan. Objective - Vital Signs Vital signs: Vital Signs Temp 98 F 12/02/18 08:26 Pulse 59 L 12/02/18 09:55 Resp 16 12/02/18 09:55 BP 110/59 12/02/18 09:55 Pulse Ox 94 L 12/02/18 09:55 Intake & Output 12/01/18 12/02/18 12/02/18 18:59 06:59 18:59 Intake Total 206.09 250 Output Total 250 Balance -43.91 250 Weight 88 kg Intake: IV 250 Intake, IV Titration 206.09 Amount Amiodarone 450 mg In 206.09 Dextrose 5% in Water 250 ml @ 1 MG/MIN 33.33 mls/ hr IV .[id number] [facility] Rx#: [id number] Output: Urine 250 Other: Voiding Method Toilet Toilet # Voids 2 1 - Exam PHYSICAL EXAMINATION: GENERAL: The patient is alert and oriented x3, not in any acute distress. Well developed, well nourished. HEENT: Pupils are round and equally reacting to light. EOMI. No scleral icterus. No conjunctival pallor. Normocephalic, atraumatic. No pharyngeal erythema. No thyromegaly. CARDIOVASCULAR: S1 and S2 present. No murmurs, rubs, or gallops. PULMONARY: Improved wheezing ABDOMEN: Soft, nontender, nondistended, normoactive bowel sounds. No palpable organomegaly. MUSCULOSKELETAL: No joint swelling or deformity. EXTREMITIES: No cyanosis, clubbing, or pedal edema. NEUROLOGICAL: Gross neurological examination did not reveal any focal deficits. SKIN: No rashes. - Labs CBC & Chem 7: 12/02/18 06:58 12/01/18 05:58 Labs: Abnormal Lab Results - Last 24 Hours (Table) 12/01/18 12/01/18 12/01/18 Range/Units 06:00 11:19 16:36 RBC (4.30-5.90) m/uL Hgb (13.0-17.5) gm/dL Hct (39.0-53.0) % APTT (22.0-30.0) sec POC Glucose (mg/dL) 124 H 137 H (75-99) mg/dL Troponin I 0.413 H* (0.000-0.034) ng/mL 12/01/18 12/02/18 12/02/18 Range/Units 20:54 05:53 06:58 RBC 4.02 L (4.30-5.90) m/uL Hgb 12.4 L (13.0-17.5) gm/dL Hct 37.1 L (39.0-53.0) % APTT (22.0-30.0) sec POC Glucose (mg/dL) 168 H 135 H (75-99) mg/dL Troponin I (0.000-0.034) ng/mL 12/02/18 Range/Units 06:58 RBC (4.30-5.90) m/uL Hgb (13.0-17.5) gm/dL Hct (39.0-53.0) % APTT 46.1 H (22.0-30.0) sec POC Glucose (mg/dL) (75-99) mg/dL Troponin I (0.000-0.034) ng/mL Assessment and Plan Plan: 1 elevated troponins probably secondary to atrial fibrillation patient underwent cardiac catheterization did not show any significant stent atable atherosclerotic coronary occlusive disease although there is 60% stenosis of LAD -Atrial fibrillation with rapid ventricular rate: Status post cardioversion today sinus rhythm presently, remains on IV heparin -History of coronary artery disease -Possible asthma with mild acute exacerbation patient will be started on inhaled steroids and inhalational treatments with significant improvement in his symptoms -Essential hypertension -Hyperlipidemia -Type 2 diabetes mellitus
[2018-12-02 11:48] LABS: Glucose,Whole Blood 204 mg/dL (75-99)
[2018-12-02] MEDS ORDERED: HEPARIN SODIUM,PORCINE 5,000 UNIT/ML 1 ML VIAL IV STA (11:57)
[2018-12-02] MEDS: ATORVASTATIN 40 MG TAB PO SCH (12:19)
[2018-12-02] MEDS: HEPARIN SOD,PORK IN 0.45% NACL 25,000 UNIT in 0.45% NACL 1 250ML.BAG IV SCH (12:19)
--- NOTE | 2018-12-02 14:04 | PN ---
PROGRESS NOTE This is a 78-year-old gentleman who underwent a ANKIT cardioversion for persistent atrial fibrillation. The nurse taking care of the patient inadvertently stopped the heparin prior to the procedure, which she was not supposed to. This was brought to my attention around 11:55 this morning. I asked the nurse to give a bolus of 5000 units of IV heparin and start back on the heparin per protocol STAT. MMTHOMAS / CORA: [id number] /
[2018-12-02] MEDS ORDERED: AMIODARONE 200 MG TAB PO STA (14:45)
[2018-12-02] MEDS ORDERED: NITROGLYCERIN SL TABS 0.4 MG TAB SUBLINGUAL PRN (15:52)
[2018-12-02] MEDS ORDERED: ALPRAZolam 0.25 MG TAB PO PRN (15:52)
[2018-12-02] MEDS ORDERED: ALPRAZolam 0.5 MG TAB PO PRN (15:52)
[2018-12-02] MEDS ORDERED: SODIUM CHLORIDE 0.9% 1,000 ML in EMPTY BAG 1 BAG IV ONE (15:52)
[2018-12-02] MEDS: ATORVASTATIN 80 MG TAB PO ONE ×2 (17:07→17:09)
[2018-12-02 17:39] LABS: Glucose,Whole Blood 126 mg/dL (75-99)
[2018-12-02] MEDS: LACTATED RINGERS 1,000 ML IV SCH (20:17)
[2018-12-02] MEDS: DOXAZOSIN 4 MG TAB PO SCH (20:18)
[2018-12-02 21:15] LABS: Glucose,Whole Blood 129 mg/dL (75-99)
[2018-12-03] MEDS ORDERED: ASPIRIN 325 MG TAB PO ONE (06:00)
[2018-12-03 06:05] LABS: Glucose,Whole Blood 144 mg/dL (75-99)
[2018-12-03 06:25] LABS: Basophils % (A) 0 %; Eosinophils # (A) 0.4 k/uL (0-0.7); Eosinophils % (A) 4 %; HCT 40.1 % (39.0-53.0); HGB 12.8 gm/dL (13.0-17.5); Lymphocytes # (A) 1.7 k/uL (1.0-4.8); Lymphocytes % (A) 17 %; MCH 29.9 pg (25.0-35.0); MCHC 31.8 g/dL (31.0-37.0); MCV 94.1 fL (80.0-100.0); Mean Platelet Volume 7.6; Monocytes # (A) 0.7 k/uL (0-1.0); Monocytes % (A) 7 %; Neutrophils # (A) 6.7 k/uL (1.3-7.7); Neutrophils % (A) 68 %; Platelet Count 194 k/uL (150-450); RBC 4.27 m/uL (4.30-5.90); RDW 14.3 % (11.5-15.5); WBC 9.8 k/uL (3.8-10.6)
[2018-12-03 06:51] LABS: Calcium 8.6 mg/dL (8.4-10.2); Potassium 3.9 mmol/L (3.5-5.1)
[2018-12-03] MEDS: SYMBICORT 80-4.5 MCG INHALER INHALATION SCH ×2 (08:02→19:22)
[2018-12-03] MEDS: IPRATROPIUM-ALBUTEROL 3 ML NEB INHALATION SCH ×4 (08:02→19:22)
[2018-12-03] MEDS: SODIUM CHLORIDE 0.9% 1,000 ML IV SCH ×2 (09:01→11:01)
[2018-12-03] MEDS: AMIODARONE 200 MG TAB PO SCH ×2 (09:02→20:08)
[2018-12-03] MEDS: METOPROLOL TARTRATE 50 MG TAB PO SCH ×2 (09:02→20:08)
[2018-12-03] MEDS: ISOSORBIDE MONONITRATE ER 60 MG TAB.ER.24H PO SCH (09:02)
[2018-12-03] MEDS: ASPIRIN 81 MG PO SCH (09:02)
[2018-12-03] MEDS: FUROSEMIDE 20 MG TAB PO SCH ×2 (09:02→16:13)
[2018-12-03] MEDS: ATORVASTATIN 40 MG TAB PO SCH (09:02)
[2018-12-03] MEDS ORDERED: SODIUM CHLORIDE 0.9% 1,000 ML IV ONE (10:12)
[2018-12-03] MEDS ORDERED: MIDAZOLAM 2 MG/2 ML VIAL IVP ONE (10:23)
[2018-12-03] MEDS ORDERED: LIDOCAINE 1% INJ 10MG/ML (20 ML MDV) SQ ONE (10:28)
[2018-12-03] MEDS ORDERED: SODIUM CHLORIDE 0.9% 50 ML BAG ONE (10:30)
[2018-12-03] MEDS ORDERED: BIVALIRUDIN 250 MG VIAL IV ONE (10:30)
[2018-12-03] MEDS ORDERED: BIVALIRUDIN BOLUS 250 MG/50 ML IV ONE (10:45)
[2018-12-03] MEDS ORDERED: NITROGLYCERIN 1000MCG/10ML SYRINGE INTRAARTER ONE (10:45)
[2018-12-03] MEDS ORDERED: ADENOSINE 90 MG in SODIUM CHLORIDE 0.9% 60 ML IVP ONE (10:47)
[2018-12-03] MEDS: ceFAZolin 1,000 MG in DEXTROSE/WATER 1 50ML.BAG IVPB SCH ×2 (10:58→18:23)
[2018-12-03] MEDS ORDERED: IOPAMIDOL-370 100ML BTL INJ ONE (10:59)
[2018-12-03 11:40] LABS: Glucose,Whole Blood 123 mg/dL (75-99)
--- NOTE | 2018-12-03 12:09 | P.PN ---
Subjective 72-year-old admitted secondary to acute non-ST elevation microinfarction and the atrial fibrillation with rapid unclear rate. Patient on IV heparin will undergo cardiac catheterization tomorrow patient is presently on Cardizem. Patient is on Eliquis which is being held at this time. 11/30/2018 Patient underwent Cardiac catheterization which did not show atherosclerotic coronary occlusive disease. Patient's symptomatology was considered secondary to atrial fibrillation and patient will undergo cardioversion today. 12/01/2018 patient is still and out of A. fib was comparing of her chest pain today at the time patient's heart rate was high. Patient probably will undergo cardioversion today 12/02/2017 Patient had y cardioversion patient is presently sinus rhythm heart rate in 50s. 12/03/2017 Patient will undergo cardiac catheterization today Constitutional: Denied any fatigue denied any fever. Cardio vascular: denied any chest pain, palpitations Gastrointestinal denied any nausea vomiting Pulmonary: Denied any shortness of breath cough Neurologic denied any new focal deficits All inpatient medications were reviewed and appropriate changes in these medications as dictated in the interval history and assessment and plan. Objective - Vital Signs Vital signs: Vital Signs Temp 97.9 F 12/03/18 11:35 Pulse 60 12/03/18 08:11 Resp 16 12/03/18 11:50 BP 116/64 12/03/18 11:50 Pulse Ox 95 12/03/18 11:50 Intake & Output 12/02/18 12/03/18 12/03/18 18:59 06:59 18:59 Intake Total 333.833 250.4 Output Total 200 Balance 333.833 -200 250.4 Weight 89.3 kg Intake: IV 150 250.4 Intake, IV Titration 183.833 Amount Heparin Sod,Pork in 0.45% 183.833 NaCl 25,000 unit In 0.45 % NaCl 1 250ml.bag @ 11.5 UNITS/KG/HR 10.01 mls/hr IV .Q24H [facility] Rx#: [id number] Output: Urine 200 Other: Voiding Method Toilet Toilet # Voids 2 - Exam PHYSICAL EXAMINATION: GENERAL: The patient is alert and oriented x3, not in any acute distress. Well developed, well nourished. HEENT: Pupils are round and equally reacting to light. EOMI. No scleral icterus. No conjunctival pallor. Normocephalic, atraumatic. No pharyngeal erythema. No thyromegaly. CARDIOVASCULAR: S1 and S2 present. No murmurs, rubs, or gallops. PULMONARY: Improved wheezing ABDOMEN: Soft, nontender, nondistended, normoactive bowel sounds. No palpable organomegaly. MUSCULOSKELETAL: No joint swelling or deformity. EXTREMITIES: No cyanosis, clubbing, or pedal edema. NEUROLOGICAL: Gross neurological examination did not reveal any focal deficits. SKIN: No rashes. - Labs CBC & Chem 7: 12/03/18 06:01 12/03/18 06:01 Labs: Abnormal Lab Results - Last 24 Hours (Table) 12/02/18 12/02/18 12/02/18 Range/Units 17:05 19:17 21:14 RBC (4.30-5.90) m/uL Hgb (13.0-17.5) gm/dL APTT 51.9 H (22.0-30.0) sec Glucose (74-99) mg/dL POC Glucose (mg/dL) 126 H 129 H (75-99) mg/dL 12/03/18 12/03/18 12/03/18 Range/Units 06:01 06:01 06:01 RBC 4.27 L (4.30-5.90) m/uL Hgb 12.8 L (13.0-17.5) gm/dL APTT 53.5 H (22.0-30.0) sec Glucose 148 H (74-99) mg/dL POC Glucose (mg/dL) (75-99) mg/dL 12/03/18 12/03/18 Range/Units 06:03 11:39 RBC (4.30-5.90) m/uL Hgb (13.0-17.5) gm/dL APTT (22.0-30.0) sec Glucose (74-99) mg/dL POC Glucose (mg/dL) 144 H 123 H (75-99) mg/dL Assessment and Plan Plan: 1 elevated troponins probably secondary to atrial fibrillation patient underwent cardiac catheterization did not show any significant stent atable atherosclerotic coronary occlusive disease although there is 60% stenosis of LAD , patient will undergo repeat the cardiac catheterization and FFI -Atrial fibrillation with rapid ventricular rate: Status post cardioversion today sinus rhythm presently, remains on IV heparin -History of coronary artery disease -Possible asthma with mild acute exacerbation patient will be started on inhaled steroids and inhalational treatments with significant improvement in his symptoms -Essential hypertension -Hyperlipidemia -Type 2 diabetes mellitus
[2018-12-03 13:00] VITALS: BMI 32.7
--- NOTE | 2018-12-03 14:53 | CDI ---
Documentation Clarification Form Date: 12/03/2018 2:36:15 PM From: Joy SantiagoAndersERIN goodwin, CCDS Admit Date: 11/30/2018 10:36:00 AM Patient Name: Rony Gruber Visit Number: [id number] Discharge Date: ATTENTION: The Clinical Documentation Specialists (CDI) and [facility] Coding Staff appreciate your assistance in clarifying documentation. Please respond to the clarification below the line at the bottom and electronically sign. The CDI & [facility] Coding staff will review the response and follow-up if needed. Please note: Queries are made part of the Legal Health Record. If you have any questions, please contact the author of this message via ITS. Dr. Kay Rodriguez Asthma is documented in the attending progress notes as " Possible asthma with mild acute exacerbation patient will be started on inhaled steroids and inhalational treatments." Per the 11/29 progress note: improved wheezing. History/risk factors: CAD with previous CABG, Hypertension, Hyperlipidemia, former smoker. Clinical Indicators: Presented with chest pain, had left heart catheterization on 11/30: CAD with patent grafts. Radiology: CXR: Possible subtle basilar opacities may be atelectasis. Vital Signs: P 118^, R 20, BP 151/93^, PO 95 2Lnc Treatment: Nitropaste, IV fluid rate 75, IV Heparin & Heparin drip, IV Cardizem , IV Lasix, Albuterol INH, Symbicort INH, O2 2Lnc. In your professional opinion, can you please further specify the following, if known? Acute Exacerbation o Status asthmaticus o COPD (specify with or without exacerbation) o Chronic obstructive bronchitis o Other, please specify o Unable to determine Severity o Mild intermittent o Mild persistent o Moderate persistent o Severe persistent o Other, please specify o Unable to determine Form or Type o Exercise induced bronchospasm o Intrinsic nonallergic o Late-onset o Mixed o Other, please specify o Unable to determine (Last Revision: February 2018) MTDD
[2018-12-03 16:30] LABS: Glucose,Whole Blood 152 mg/dL (75-99)
[2018-12-03] MEDS: DOXAZOSIN 4 MG TAB PO SCH (20:08)
[2018-12-03] MEDS: LACTATED RINGERS 1,000 ML IV SCH (20:09)
[2018-12-03 21:18] LABS: Glucose,Whole Blood 133 mg/dL (75-99)
[2018-12-04] MEDS: ceFAZolin 1,000 MG in DEXTROSE/WATER 1 50ML.BAG IVPB SCH ×2 (00:15→06:17)
[2018-12-04 04:41] VITALS: PULSE 56
[2018-12-04 05:57] LABS: Glucose,Whole Blood 148 mg/dL (75-99)
[2018-12-04 07:35] LABS: Basophils % (A) 0 %; Eosinophils # (A) 0.4 k/uL (0-0.7); Eosinophils % (A) 5 %; HCT 35.5 % (39.0-53.0); Lymphocytes % (A) 12 %; MCH 31.6 pg (25.0-35.0); MCHC 33.7 g/dL (31.0-37.0); MCV 93.9 fL (80.0-100.0); Mean Platelet Volume 8.5; Monocytes # (A) 0.8 k/uL (0-1.0); Monocytes % (A) 9 %; Neutrophils # (A) 6.4 k/uL (1.3-7.7); Neutrophils % (A) 73 %; Platelet Count 159 k/uL (150-450); RBC 3.78 m/uL (4.30-5.90); RDW 14.3 % (11.5-15.5); WBC 8.8 k/uL (3.8-10.6)
[2018-12-04] MEDS: SYMBICORT 80-4.5 MCG INHALER INHALATION SCH (07:43)
[2018-12-04] MEDS: IPRATROPIUM-ALBUTEROL 3 ML NEB INHALATION SCH ×2 (07:43→11:26)
[2018-12-04 07:54] LABS: Anion Gap 5 mmol/L; Blood Urea Nitrogen 14 mg/dL (9-20); Calcium 8.2 mg/dL (8.4-10.2); Carbon Dioxide 28 mmol/L (22-30); Chloride 105 mmol/L (98-107); Glucose 128 mg/dL (74-99); Potassium 3.7 mmol/L (3.5-5.1); Sodium 138 mmol/L (137-145)
[2018-12-04] MEDS: FUROSEMIDE 20 MG TAB PO SCH (10:08)
[2018-12-04] MEDS: AMIODARONE 200 MG TAB PO SCH (10:08)
[2018-12-04] MEDS: METOPROLOL TARTRATE 50 MG TAB PO SCH (10:08)
[2018-12-04] MEDS: ISOSORBIDE MONONITRATE ER 60 MG TAB.ER.24H PO SCH (10:08)
[2018-12-04] MEDS: ATORVASTATIN 40 MG TAB PO SCH (10:08)
[2018-12-04] MEDS: ASPIRIN 81 MG PO SCH (10:09)
[2018-12-04] MEDS: SODIUM CHLORIDE 0.9% 1,000 ML IV SCH (10:10)
[2018-12-04 10:47] VITALS: BP 124/76; RESP 20; TEMP 98.2
--- NOTE | 2018-12-04 11:34 | P.DS ---
Providers Date of admission: 11/30/18 10:36 Attending physician: Sedrick Luu MD Consults: 11/28/18 07:08 Consult Physician Stat Consulting Provider: [facility] Consult Reason/Comments: chest pain - high risk Do you want consulting provider notified?: Yes Primary care physician: Tr Obrien [facility] Course: 72-year-old admitted secondary to acute non-ST elevation microinfarction and the atrial fibrillation with rapid unclear rate. Patient on IV heparin will undergo cardiac catheterization tomorrow patient is presently on Cardizem. Patient is on Eliquis which is being held at this time. 11/30/2018 Patient underwent Cardiac catheterization which did not show atherosclerotic coronary occlusive disease. Patient's symptomatology was considered secondary to atrial fibrillation and patient will undergo cardioversion today. 12/01/2018 patient is still and out of A. fib was comparing of her chest pain today at the time patient's heart rate was high. Patient probably will undergo cardioversion today 12/02/2017 Patient had y cardioversion patient is presently sinus rhythm heart rate in 50s. 12/03/2017 Patient will undergo cardiac catheterization today 12/04/2017 Patient underwent repeat cardiac catheterization today. This is a post- lesional pressures after assessing that decision was made not to do stenting. Patient is clinically doing well will be discharged today chest pain-free. PHYSICAL EXAMINATION: GENERAL: The patient is alert and oriented x3, not in any acute distress. Well developed, well nourished. HEENT: Pupils are round and equally reacting to light. EOMI. No scleral icterus. No conjunctival pallor. Normocephalic, atraumatic. No pharyngeal erythema. No thyromegaly. CARDIOVASCULAR: S1 and S2 present. No murmurs, rubs, or gallops. PULMONARY: Chest is clear to auscultation, no wheezing or crackles. ABDOMEN: Soft, nontender, nondistended, normoactive bowel sounds. No palpable organomegaly. MUSCULOSKELETAL: No joint swelling or deformity. EXTREMITIES: No cyanosis, clubbing, or pedal edema. NEUROLOGICAL: Gross neurological examination did not reveal any focal deficits. SKIN: No rashes. Assessment and Plan Plan: 1 elevated troponins probably secondary to atrial fibrillation patient underwent cardiac catheterization did not show any significant stent atable atherosclerotic coronary occlusive disease although there is 60% stenosis of LAD. Patient will be discharged on a eliquis. -Atrial fibrillation with rapid ventricular rate: Status post cardioversion today sinus rhythm presently -History of coronary artery disease -Possible asthma with mild acute exacerbation patient will be started on inhaled steroids and inhalational treatments with significant improvement in his symptoms -Essential hypertension -Hyperlipidemia -Type 2 diabetes mellitus Plan - Discharge Summary New Discharge Prescriptions: New Amiodarone [Cordarone] 400 mg PO BID #60 tab Atorvastatin [Lipitor] 40 mg PO DAILY #30 tab Furosemide [Lasix] 20 mg PO BID@0900,1600 #30 tab Isosorbide Mononitrate ER [Imdur] 60 mg PO DAILY #30 tab.er.24h Metoprolol Tartrate [Lopressor] 50 mg PO BID #60 tab Nitroglycerin Sl Tabs [Nitrostat] 0.4 mg SUBLINGUAL Q5M PRN #30 tab PRN Reason: Chest Pain Albuterol Inhaler [Ventolin Hfa Inhaler] 1 - 2 puff INHALATION Q6HR PRN #1 inhaler PRN Reason: Shortness Of Breath Or Wheezing Budesonide-Formot 160-4.5 Mcg [Symbicort 160-4.5 Mcg Inhaler] 2 puff INHALATION BID #1 inhaler Continue Repaglinide 0.5 mg PO BID Lovastatin [Mevacor] 40 mg PO DAILY Doxazosin [Cardura] 4 mg PO DAILY Aspirin [[place] Aspirin EC] 81 mg PO DAILY Discontinued Carvedilol [Coreg] 3.125 mg PO BID amLODIPine [Norvasc] 5 mg PO DAILY Isosorbide Mononitrate 35 mg PO BID Discharge Medication List Aspirin [[place] Aspirin EC] 81 mg PO DAILY 11/28/18 [History] Doxazosin [Cardura] 4 mg PO DAILY 11/28/18 [History] Lovastatin [Mevacor] 40 mg PO DAILY 11/28/18 [History] Repaglinide 0.5 mg PO BID 11/28/18 [History] Albuterol Inhaler [Ventolin Hfa Inhaler] 1 - 2 puff INHALATION Q6HR PRN #1 inhaler 12/04/18 [Rx] Amiodarone [Cordarone] 400 mg PO BID #60 tab 12/04/18 [Rx] Atorvastatin [Lipitor] 40 mg PO DAILY #30 tab 12/04/18 [Rx] Budesonide-Formot 160-4.5 Mcg [Symbicort 160-4.5 Mcg Inhaler] 2 puff INHALATION BID #1 inhaler 12/04/18 [Rx] Furosemide [Lasix] 20 mg PO BID@0900,1600 #30 tab 12/04/18 [Rx] Isosorbide Mononitrate ER [Imdur] 60 mg PO DAILY #30 tab.er.24h 12/04/18 [Rx] Metoprolol Tartrate [Lopressor] 50 mg PO BID #60 tab 12/04/18 [Rx] Nitroglycerin Sl Tabs [Nitrostat] 0.4 mg SUBLINGUAL Q5M PRN #30 tab 12/04/18 [Rx ] Follow up Appointment(s)/Referral(s): Hitesh Velasquez MD [STAFF PHYSICIAN] - 1 Week Tr Santana DO [Primary Care Provider] - 3 Days Patient Instructions/Handouts: *Surgery [facility] - After Heart Catheterization - Heel [facility]ementer Instructions, Left Heart Catheterization (DC) Discharge Disposition: HOME SELF-CARE
[2018-12-04] MEDS ORDERED: APIXABAN 5 MG TAB PO SCH (11:45)
[2018-12-04 12:19] LABS: Glucose,Whole Blood 164 mg/dL (75-99)
--- NOTE | 2018-12-04 13:42 | P.PN ---
Subjective This is a pleasant 78-year-old male past medical history significant for coronary artery disease status post bypass grafting, hypertension and dyslipidemia. He presented to the hospital with symptoms of chest discomfort. He was found to be in atrial fibrillation with rapid ventricular response. He underwent ANKIT cardioversion per Dr. Johnson yesterday. He is currently maintaining sinus mechanism and is maintained on amiodarone. He is seen and examined sitting up in no acute distress. He denies symptoms of chest discomfort, shortness of breath, dizziness or palpitations. Telemetry tracings reveal he is maintaining sinus mechanism. Blood pressure 124/76 heart rate 56 afebrile maintaining oxygen saturation on room air. Laboratory data reviewed, hemoglobin 12, platelets 159, sodium 138, potassium 3.7, creatinine 0.91. GENERAL: Well-appearing, well-nourished and in no acute distress. NECK: Supple without JVD or thyromegaly. LUNGS: Breath sounds clear to auscultation bilaterally. Respiration equal and unlabored. No wheezes, rales or rhonchi. HEART: Regular rate and rhythm with systolic ejection murmur, no rubs or gallops. S1 and S2 heard. EXTREMITIES: Normal range of motion, no edema. No clubbing or cyanosis. Peripheral pulses intact. ASSESSMENT Chest discomfort with abnormal troponins likely representing an acute coronary syndrome. Cardiac catheterization reviewed, medical therapy is advised New-onset atrial fibrillation with rapid ventricular response. Underwent ANKIT cardioversion which was successfully he is currently maintaining sinus mechanism Hypertension Dyslipidemia Diabetes mellitus Asthma PLAN Stable for discharge from a cardiac perspective. He should go home on amiodarone 400 mg twice a day for 7 days and then decrease to 200 mg twice a day for 7 days and then decrease to 200 mg daily. This has been explained in great detail to the patient knee verbalize understanding. He is also to go home and Eliquis 5 mg twice a day. Follow-up in the office with Dr. Velasquez. The above impression and plan of care have been discussed and directed by the signing physician. Liliana Munroe, nurse practitioner, acting as scribe for signing physician. Objective - Vital Signs Vital signs: Vital Signs Temp 98.2 F 12/04/18 08:00 Pulse 56 L 12/04/18 08:00 Resp 20 12/04/18 08:00 BP 124/76 12/04/18 08:00 Pulse Ox 96 12/04/18 08:00 Intake & Output 12/03/18 12/04/18 12/04/18 18:59 06:59 18:59 Intake Total 640.4 750 240 Output Total 300 Balance 640.4 450 240 Weight 89.3 kg 90.4 kg Intake: IV 250.4 Intake, IV Titration 390 260 Amount Sodium Chloride 0.9% 1, 160 000 ml @ 20 mls/hr IV . Q24H [facility] Rx#:[id number] Sodium Chloride 0.9% 1, 340 000 ml In Empty Bag 1 bag @ 1 ML/KG/HR 88 mls/hr IV .[id number] Rx#: [id number] ceFAZolin 1,000 mg In 50 100 Dextrose/Water 1 50ml.bag @ 100 mls/hr IVPB Q6HR [facility] Rx#:[id number] Oral 490 240 Output: Urine 300 Other: Voiding Method Toilet # Voids 1 - Labs CBC & Chem 7: 12/04/18 06:30 12/04/18 06:30 Labs: Abnormal Lab Results - Last 24 Hours (Table) 12/03/18 12/03/18 12/04/18 Range/Units 16:29 21:17 05:55 RBC (4.30-5.90) m/uL Hgb (13.0-17.5) gm/dL Hct (39.0-53.0) % APTT (22.0-30.0) sec Glucose (74-99) mg/dL POC Glucose (mg/dL) 152 H 133 H 148 H (75-99) mg/dL Calcium (8.4-10.2) mg/dL 12/04/18 12/04/18 12/04/18 Range/Units 06:30 06:30 06:30 RBC 3.78 L (4.30-5.90) m/uL Hgb 12.0 L (13.0-17.5) gm/dL Hct 35.5 L (39.0-53.0) % APTT 30.2 H (22.0-30.0) sec Glucose 128 H (74-99) mg/dL POC Glucose (mg/dL) (75-99) mg/dL Calcium 8.2 L (8.4-10.2) mg/dL 12/04/18 Range/Units 11:37 RBC (4.30-5.90) m/uL Hgb (13.0-17.5) gm/dL Hct (39.0-53.0) % APTT (22.0-30.0) sec Glucose (74-99) mg/dL POC Glucose (mg/dL) 164 H (75-99) mg/dL Calcium (8.4-10.2) mg/dL
--- NOTE | 2018-12-04 15:00 | AN ---
ANGIOGRAPHY REPORT DATE OF SERVICE: 12/03/2018. PROCEDURE: Selective coronary angiography of left coronary artery with fractional flow reserve assessment of the distal left main and proximal and mid circumflex coronary artery. PERFORMED BY: Dr. Brock Velasquez. Moderate conscious sedation time was 34 minutes. The patient was administered Versed and oxygen saturation. Hemodynamics and EKG were monitored closely. CLINICAL INFORMATION: Mr. Rony Gruber is a 78-year-old gentleman with a known history of CAD, prior bypass surgery and PCI. I performed cardiac cath on this patient on the and I felt that he had a moderate lesion in the ostium of the circumflex and distal left main of nearly 40%-50% and advised medical therapy. However, patient continued to have chest discomfort and I obtained at least 2 additional opinions from a surgeon and band saw operator, Dr. Shaw and both felt that it could be a significant lesion up to 70%. The patient then had electrical cardioversion for what seemed to be a new-onset atrial fibrillation and after that, his symptoms improved remarkably. He did not have any re-elevation of troponin and he presented with a non-ST elevation VA with atrial fib and rapid ventricular rate as well. Yesterday on 12/02/2018, he had a electrical cardioversion performed and he was in sinus rhythm. I had an extensive discussion with the patient and his 2 daughters, both on the evening of 12/01/2018 and on 12/02/2018 and explained to them the rationale, risks, benefits and options related to the procedures, both electrical cardioversion and fractional flow reserve assessment and possible PCI of distal left main and proximal circumflex, which was a high-risk procedure given the extensive calcification and tortuosity. Patient and family understood and agreed and wished to proceed with the procedure. PROCEDURE NOTE: Under local anesthesia and strict aseptic precautions, a 6-Guyanese introducer was placed in the right femoral artery. A 3.5 left 6-Guyanese guide catheter was used to cannulate the left coronary artery. I used a Verata wire to cross the lesion in the distal left main, proximal circumflex and the wire was kept in the mid circumflex. I gave Angiomax bolus and infusion. Subsequently, nitroglycerin was given intracoronary. I then obtained a FFR after a few minutes after stabilizing the wire in the aorta and then again in the coronary artery. The pressures were zeroed. IFR was then obtained. IFR was 0.91, 0.94 and 0.93. However, I proceeded to perform FFR as well. As per protocol, adenosine was infused for a total duration of nearly 2-1/2 minutes and FFR was obtained. The lowest FFR was 0.86. The highest FFR was 0.89. The patient did not have any significant symptoms. He tolerated the procedure well without any issues or concerns or complications. The wire was taken out. The guide catheter was taken out and sheath was sutured and he was sent to the room in a stable condition with the understanding the sheath will be pulled in a couple of hours. Based on the IFR and FFR data, patient does not have a hemodynamically significant lesion involving the distal left main or the proximal circumflex. However, angiographically, the lesion looked at least moderate to significant. However, given the normal physiological parameters based on IFR and FFR, I am advising medical therapy and explained this to the patient and 2 daughters. He was sent to the room in a stable condition. We will pursue medical therapy and if he clinically shows any symptoms, we will consider intervention of this. I discussed my thoughts in detail with the patient and his 2 daughters and he will be discharged tomorrow if he remains stable. MMODL / IJN: [id number] /
== END 2018-12-04 14:29 | disposition home or self-care (01) | DRG 287 ==
LOC: EC 04:32 → 3SCARD 07:08 → OBSVTOIN 11-30 10:36
PROVIDERS: ADMIT Internal Medicine; ATTEND Internal Medicine
PROC: B2111ZZ Fluoroscopy of Multiple Coronary Arteries using Low Osmolar Contrast (ICD-10-PCS; 2018-11-30)
PROC: B2181ZZ Fluoroscopy of Left Internal Mammary Bypass Graft using Low Osmolar Contrast (ICD-10-PCS; 2018-11-30)
PROC: B2131ZZ Fluoroscopy of Multiple Coronary Artery Bypass Grafts using Low Osmolar Contrast (ICD-10-PCS; 2018-11-30)
PROC: B2151ZZ Fluoroscopy of Left Heart using Low Osmolar Contrast (ICD-10-PCS; 2018-11-30)
PROC: 4A023N7 Measurement of Cardiac Sampling and Pressure, Left Heart, Percutaneous Approach (ICD-10-PCS; principal; 2018-11-30 07:20)
PROC: 5A2204Z Restoration of Cardiac Rhythm, Single (ICD-10-PCS; 2018-12-02)
PROC: B246ZZ4 Ultrasonography of Right and Left Heart, Transesophageal (ICD-10-PCS; 2018-12-02)
PROC: B2101ZZ Fluoroscopy of Single Coronary Artery using Low Osmolar Contrast (ICD-10-PCS; 2018-12-03)
PROC: 4A033BC Measurement of Arterial Pressure, Coronary, Percutaneous Approach (ICD-10-PCS; 2018-12-03)
DX: I48.1 Persistent atrial fibrillation (principal); I24.9 Acute ischemic heart disease, unspecified; I25.110 Atherosclerotic heart disease of native coronary artery with unstable angina pectoris; J45.901 Unspecified asthma with (acute) exacerbation; I48.4 Atypical atrial flutter; E11.9 Type 2 diabetes mellitus without complications; I34.0 Nonrheumatic mitral (valve) insufficiency; I10 Essential (primary) hypertension; E78.5 Hyperlipidemia, unspecified; I25.2 Old myocardial infarction; Z79.82 Long term (current) use of aspirin; Z79.84 Long term (current) use of oral hypoglycemic drugs; Z79.899 Other long term (current) drug therapy; Z95.1 Presence of aortocoronary bypass graft; Z87.891 Personal history of nicotine dependence; Z90.49 Acquired absence of other specified parts of digestive tract
CPT/HCPCS: 36415; 71046; 71275; 80048; 80053; 80061; 82550; 82553; 83735; 83880; 84484; 85025; 85610; 85730; 92960; 93005; 93306; 93312; 93320; 93325; 93454; 93459; 93571; 94640; 94760; 96361; 96365; 96366; 96368; 96375; 96376; 99285

== ENCOUNTER 2019-08-27 08:45 | Inpatient (IN) | payer MEDICARE ==
[2019-08-27] MEDS ORDERED: KETOROLAC 30 MG/ML 1 ML VIAL IVP STA (09:00)
[2019-08-27 09:36] LABS: Basophils # (A) 0.1 k/uL (0-0.2); Basophils % (A) 1 %; Eosinophils # (A) 0.2 k/uL (0-0.7); Eosinophils % (A) 4 %; HCT 38.6 % (39.0-53.0); HGB 12.6 gm/dL (13.0-17.5); Lymphocytes # (A) 0.8 k/uL (1.0-4.8); Lymphocytes % (A) 15 %; MCH 31.3 pg (25.0-35.0); MCHC 32.6 g/dL (31.0-37.0); Mean Platelet Volume 8.5; Monocytes # (A) 0.5 k/uL (0-1.0); Monocytes % (A) 8 %; Neutrophils # (A) 3.7 k/uL (1.3-7.7); Neutrophils % (A) 69 %; Platelet Count 157 k/uL (150-450); RBC 4.02 m/uL (4.30-5.90); RDW 14.2 % (11.5-15.5); WBC 5.4 k/uL (3.8-10.6)
--- NOTE | 2019-08-27 09:37 | ED ---
General Adult HPI - General Chief complaint: Chest Pain Stated complaint: chest/back pain Time Seen by Provider: 08/27/19 08:45 Source: patient, RN notes reviewed Mode of arrival: wheelchair Limitations: no limitations - History of Present Illness Initial comments: This is a 79-year-old male with a past medical history significant for MIs with stent placements. Patient comes in today because he woke up this morning about 3:00 with upper back pain radiating to his neck. Patient states he is always had back pain with his previous heart attacks and not had chest chest pain typically. Patient states this does not seem to increase with movement or p alpation. Patient states his been constant since 3 AM. Patient denies any radiation into his chest but does feel like going a little bit towards his arms. Patient denies any shortness of breath or difficulty breathing. Patient denies any lightheadedness or dizziness. Patient denies headache patient denies numbness weakness. Patient denies any recent fever chills or cough per patient denies any nausea patient denies diarrhea. Patient denies any abdominal pain. Patient denies any leg swelling or calf tenderness. - Related Data Home Medications Medication Instructions Recorded Confirmed Doxazosin [Cardura] 4 mg PO DAILY 11/28/18 08/27/19 Repaglinide 0.5 mg PO BID 11/28/18 08/27/19 Amiodarone [Cordarone] 100 mg PO BID 08/27/19 08/27/19 Metoprolol Tartrate [Lopressor] 25 mg PO QAM 08/27/19 08/27/19 Previous Rx's Medication Instructions Recorded Apixaban [Eliquis] 5 mg PO BID #60 tab 12/04/18 Atorvastatin [Lipitor] 40 mg PO DAILY #30 tab 12/04/18 Furosemide [Lasix] 20 mg PO BID@0900,1600 #30 tab 12/04/18 Isosorbide Mononitrate ER [Imdur] 60 mg PO DAILY #30 tab.er.24h 12/04/18 Allergies Allergy/AdvReac Type Severity Reaction Status Date / Time No Known Allergies Allergy Verified 08/27/19 09:10 Review of Systems ROS Statement: Those systems with pertinent positive or pertinent negative responses have been documented in the HPI. ROS Other: All systems not noted in ROS Statement are negative. Past Medical History Past Medical History: Coronary Artery Disease (CAD), Chest Pain / Angina History of Any Multi-Drug Resistant Organisms: None Reported Past Surgical History: Adenoidectomy, Cholecystectomy, Coronary Bypass/CABG Past Psychological History: No Psychological Hx Reported Smoking Status: Former smoker Past Alcohol Use History: None Reported Past Drug Use History: None Reported General Exam - General Exam Comments Initial Comments: GENERAL: Patient is well-developed and well-nourished. Patient is nontoxic and well-hyd rated and is in mild distress. ENT: Neck is soft and supple. No significant lymphadenopathy is noted. Oropharynx is clear. Moist mucous membranes. Neck has full range of motion without eliciting any pain. EYES: The sclera were anicteric and conjunctiva were pink and moist. Extraocular movements were intact and pupils were equal round and reactive to light. Eyelids were unremarkable. PULMONARY: Unlabored respirations. Good breath sounds bilaterally. No audible rales rhonchi or wheezing was noted. CARDIOVASCULAR: There is a regular rate and rhythm without any murmurs gallops or rubs. ABDOMEN: Soft and nontender with normal bowel sounds. No palpable organomegaly was noted. There is no palpable pulsatile mass. SKIN: Skin is clear with no lesions or rashes and otherwise unremarkable. NEUROLOGIC: Patient is alert and oriented x3. Cranial nerves II through XII are grossly in tact. Motor and sensory are also intact. Normal speech, volume and content. Symmetrical smile. MUSCULOSKELETAL: Normal extremities with adequate strength and full range of motion. No lower extremity swelling or edema. No calf tenderness. LYMPHATICS: No significant lymphadenopathy is noted PSYCHIATRIC: Normal psychiatric evaluation. Limitations: no limitations Course Vital Signs 08/27/19 08/27/19 08:47 10:07 Temperature 97.8 F Pulse Rate 48 L 49 L Respiratory 18 18 Rate Blood Pressure 160/62 141/64 O2 Sat by Pulse 96 96 Oximetry Medical Decision Making - Medical Decision Making Patient had oxygen placed on a minute reduced his pain. EKG shows sinus bradycardia at 49 bpm WV interval is 248 QRS 96 QT interval is 564 QTC is 509. Patient's EKG shows some inverted T waves in leads V1 and V2. Patient has no ST segment elevation. I spoke with Dr. Benson agreed to admit the patient admitted the patient I consult cardiology. Patient is now pain free after Nitrol paste aspirin and oxygen. This is the first time since 3 AM - Lab Data Result diagrams: 08/27/19 09:15 08/27/19 09:15 Lab Results 08/27/19 08/27/19 08/27/19 Range/Units 09:15 09:15 09:15 WBC 5.4 (3.8-10.6) k/uL RBC 4.02 L (4.30-5.90) m/uL Hgb 12.6 L (13.0-17.5) gm/dL Hct 38.6 L (39.0-53.0) % MCV 96.0 (80.0-100.0) fL MCH 31.3 (25.0-35.0) pg MCHC 32.6 (31.0-37.0) g/dL RDW 14.2 (11.5-15.5) % Plt Count 157 (150-450) k/uL Neutrophils % 69 % Lymphocytes % 15 % Monocytes % 8 % Eosinophils % 4 % Basophils % 1 % Neutrophils # 3.7 (1.3-7.7) k/uL Lymphocytes # 0.8 L (1.0-4.8) k/uL Monocytes # 0.5 (0-1.0) k/uL Eosinophils # 0.2 (0-0.7) k/uL Basophils # 0.1 (0-0.2) k/uL PT (9.0-12.0) sec INR (<1.2) APTT (22.0-30.0) sec Sodium 141 (137-145) mmol/L Potassium 4.1 (3.5-5.1) mmol/L Chloride 104 (98-107) mmol/L Carbon Dioxide 31 H (22-30) mmol/L Anion Gap 6 mmol/L BUN 18 (9-20) mg/dL Creatinine 1.05 (0.66-1.25) mg/dL Est GFR (CKD-EPI)AfAm 78 (>60 ml/min/1.73 sqM) Est GFR (CKD-EPI)NonAf 68 (>60 ml/min/1.73 sqM) Glucose 119 H (74-99) mg/dL Calcium 8.4 (8.4-10.2) mg/dL Magnesium 2.3 (1.6-2.3) mg/dL Total Bilirubin 1.8 H (0.2-1.3) mg/dL AST 26 (17-59) U/L ALT 28 (21-72) U/L Alkaline Phosphatase 94 (38-126) U/L Troponin I (0.000-0.034) ng/mL NT-Pro-B Natriuret Pep 748 pg/mL Total Protein 6.2 L (6.3-8.2) g/dL Albumin 3.6 (3.5-5.0) g/dL 08/27/19 08/27/19 Range/Units 09:15 09:15 WBC (3.8-10.6) k/uL RBC (4.30-5.90) m/uL Hgb (13.0-17.5) gm/dL Hct (39.0-53.0) % MCV (80.0-100.0) fL MCH (25.0-35.0) pg MCHC (31.0-37.0) g/dL RDW (11.5-15.5) % Plt Count (150-450) k/uL Neutrophils % % Lymphocytes % % Monocytes % % Eosinophils % % Basophils % % Neutrophils # (1.3-7.7) k/uL Lymphocytes # (1.0-4.8) k/uL Monocytes # (0-1.0) k/uL Eosinophils # (0-0.7) k/uL Basophils # (0-0.2) k/uL PT 11.9 (9.0-12.0) sec INR 1.1 (<1.2) APTT 35.7 H (22.0-30.0) sec Sodium (137-145) mmol/L Potassium (3.5-5.1) mmol/L Chloride (98-107) mmol/L Carbon Dioxide (22-30) mmol/L Anion Gap mmol/L BUN (9-20) mg/dL Creatinine (0.66-1.25) mg/dL Est GFR (CKD-EPI)AfAm (>60 ml/min/1.73 sqM) Est GFR (CKD-EPI)NonAf (>60 ml/min/1.73 sqM) Glucose (74-99) mg/dL Calcium (8.4-10.2) mg/dL Magnesium (1.6-2.3) mg/dL Total Bilirubin (0.2-1.3) mg/dL AST (17-59) U/L ALT (21-72) U/L Alkaline Phosphatase (38-126) U/L Troponin I <0.012 (0.000-0.034) ng/mL NT-Pro-B Natriuret Pep pg/mL Total Protein (6.3-8.2) g/dL Albumin (3.5-5.0) g/dL Disposition Referrals: Tr Santana DO [Primary Care Provider] - 1-2 days
[2019-08-27 09:45] LABS: INR 1.1 (<1.2); Partial Thromboplastin Time 35.7 sec (22.0-30.0); Prothrombin Time 11.9 sec (9.0-12.0)
[2019-08-27] MEDS ORDERED: ASPIRIN 81 MG PO STA (09:47)
[2019-08-27] MEDS ORDERED: NITROGLYCERIN OINT 1 INCH/GM PACKET TOPICAL STA (09:48)
[2019-08-27 09:55] LABS: Albumin 3.6 g/dL (3.5-5.0); Calcium 8.4 mg/dL (8.4-10.2); Magnesium 2.3 mg/dL (1.6-2.3); Potassium 4.1 mmol/L (3.5-5.1); Total Bilirubin 1.8 mg/dL (0.2-1.3); Total Protein 6.2 g/dL (6.3-8.2)
--- NOTE | 2019-08-27 09:59 | XR ---
EXAMINATION TYPE: XR chest 2V DATE OF EXAM: 08/27/2019 HISTORY: Chest Pain. REFERENCE: Previous study dated 11/28/2018. FINDINGS: There has been a midline sternotomy and before meals bypass. The left heart border is obscu red. The heart appears enlarged. Lung volumes are prominent. There is some scarring present at both l yoselyn bases. I see no pneumonia or edema. Pleural spaces are clear. IMPRESSION: 1. COPD. 2. CARDIOMEGALY. 3. CHRONIC SCARRING, BOTH LUNG BASES.
[2019-08-27] MEDS ORDERED: NITROGLYCERIN SL TABS 0.4 MG TAB SUBLINGUAL PRN (10:48)
[2019-08-27 13:59] VITALS: BMI 29.9
[2019-08-27] MEDS: NITROGLYCERIN OINT 1 INCH/GM PACKET TOPICAL SCH ×2 (15:42→17:25)
[2019-08-27] MEDS: FUROSEMIDE 20 MG TAB PO SCH (16:07)
--- NOTE | 2019-08-27 18:36 | CONS ---
CONSULTATION Mr. Rony Gruber is a 79-year-old gentleman with a known history of CAD, 2 previous bypass surgeries, type 2 diabetes, hypertension, and recent chronic persistent atrial fibrillation. He came into the hospital with episodes of upper back discomfort. This discomfort seemed to persist randomly. It came on and seems to persist, has no relation to physical activity. He actually woke up at 3:00 and then heart some discomfort and then felt call uncomfortable. After arrival in his room when I walked in, he said his symptoms have all resolved, he feels well. He has no chest pain or back discomfort or any jaw discomfort. He is feeling absolutely normal 2 sets of troponins are normal. He is resting comfortably without symptoms. I have been seeing this gentleman for nearly 25 years or so. He has significant history of coronary artery disease. Most recently in November of this year I performed an FFR of distal left main and proximal circumflex mainly because of a moderate lesion. At that time, his JACOBS to LAD was patent and the circumflex vessel had a PTCA performed in the early . This FFR and iFR were both unremarkable and since then he was advised medical therapy. Hospitalization in November occurred mainly because of an episode of chest tightness and pressure. He also developed atrial fib with a moderately rapid ventricular rate and since then has been on medical therapy. We are doing rate control and anticoagulation for this gentleman. However, on this presentation, his symptoms seem quite atypical. He has no chest pain. He is resting comfortably. The upper back discomfort has also resolved. PAST MEDICAL HISTORY: 1. CAD with 2 aortocoronary bypass surgeries. In 1996, he had 2 vein grafts one to the LAD and RCA. Both of these were occluded in 1982 and he went to [facility] and had a JACOBS to LAD and vein graft to the first diagonal and vein graft to the PDA branch of RCA. I evaluated the patient in early , perform PTCA of the mid circumflex in 1992 and multiple PTCAs of the vein graft to the RCA, both at the ostium and insertion site on multiple occasions. However, the last cardiac cath in 1996 revealed that the nikolai RCA as well as the vein graft to the RCA and nikolai LAD were occluded, but circumflex was patent and JACOBS to LAD was patent. He was treated medically until November of this year when he presented with unstable angina with mild elevation of troponin and atrial fibrillation with a rapid rate. At that time, the JACOBS was patent with good flow in the LAD. There was moderate lesion in the circumflex, but FFR was negative. 2. The patient has also developed type 2 diabetes, hypertension, hyperlipidemia, and now has chronic persistent atrial fibrillation. MEDICATIONS: Medications at home include amiodarone 100 mg b.i.d., metoprolol tartrate 25 mg daily, Cardura 4 mg daily, Imdur 60 mg daily, Lasix 20 mg b.i.d., atorvastatin 40 mg daily, Eliquis 5 mg b.i.d. Patient also has developed moderate to severe mitral regurgitation and this has also remained stable. PHYSICAL EXAMINATION: On examination, blood pressure is 140/78, pulse rate is about 52. HEENT: Unremarkable. Fundus was not examined by me. Neck is supple. There is JVD of 1 cm. No carotid bruit. Heart exam: S1, S2 with irregularity in rhythm. Lungs revealed decent air entry. Abdomen is soft, nontender. Lower extremities reveal diminished pulses. No edema. Central nervous system is normal. EKG actually revealed sinus mechanism with first-degree AV block, nondiagnostic Q- waves, poor R-wave progression and nonspecific ST and T-wave changes. IMPRESSION: 1. Upper back discomfort seems very atypical, not suggestive of ischemia with negative troponins and unremarkable EKG. 2. History of atrial fibrillation, which I thought was persistent, but now he is in sinus rhythm with sinus bradycardia. 3. History of coronary artery disease with prior bypass surgery and PCI. 4. Type 2 diabetes. 5. Hypertension. 6. History of atrial fibrillation, which was persistent. RECOMMENDATIONS: I am recommending that we will continue his current medications. I will decrease the metoprolol to 12.5 mg daily amiodarone 200 mg daily. See how he does. Obtain additional enzymes and based on clinical course I will make further recommendations. Prognosis remains guarded. Thank you very much for the consult. MMTRISHAL / IJN: [id number] /
[2019-08-27] MEDS ORDERED: AMIODARONE 100 MG TAB PO SCH (21:00)
[2019-08-27] MEDS ORDERED: amLODIPine 5 MG TAB PO SCH (21:00)
[2019-08-27] MEDS: APIXABAN 5 MG TAB PO SCH ×2 (21:19→21:20)
[2019-08-27] MEDS: REPAGLINIDE 1 MG TAB PO SCH (21:20)
[2019-08-27 21:39] LABS: Glucose,Whole Blood 94 mg/dL (75-99)
[2019-08-28] MEDS: NITROGLYCERIN OINT 1 INCH/GM PACKET TOPICAL SCH ×2 (00:38→05:56)
[2019-08-28 00:54] LABS: Cholesterol 97 mg/dL (<200); HDL Cholesterol 44 mg/dL (40-60); LDL Cholesterol,Calculated 44 mg/dL (0-99); Triglycerides 43 mg/dL (<150)
[2019-08-28] MEDS: FUROSEMIDE 20 MG TAB PO SCH (08:21)
[2019-08-28] MEDS: REPAGLINIDE 1 MG TAB PO SCH (08:21)
[2019-08-28] MEDS: APIXABAN 5 MG TAB PO SCH (08:22)
[2019-08-28 08:41] VITALS: RESP 16
[2019-08-28] MEDS ORDERED: ISOSORBIDE MONONITRATE ER 60 MG TAB.ER.24H PO SCH (09:00)
[2019-08-28] MEDS ORDERED: ATORVASTATIN 40 MG TAB PO SCH (09:00)
[2019-08-28] MEDS ORDERED: AMIODARONE 100 MG TAB PO SCH (09:00)
[2019-08-28] MEDS ORDERED: ASPIRIN 325 MG TAB PO SCH (09:00)
[2019-08-28] MEDS ORDERED: DOXAZOSIN 4 MG TAB PO SCH (09:00)
[2019-08-28] MEDS ORDERED: METOPROLOL TARTRATE 12.5 MG TAB PO SCH (09:00)
[2019-08-28] MEDS ORDERED: METOPROLOL TARTRATE 25 MG TAB PO SCH (09:00)
--- NOTE | 2019-08-28 09:37 | P.PN ---
Subjective This is a pleasant 79-year-old male past medical history significant for coronary artery disease status post bypass grafting, paroxysmal atrial fibrillation, diabetes mellitus, hypertension and dyslipidemia. He is seen and examined sitting up in bed in no acute distress. He denies any further symptoms of back discomfort. He has no chest pain, shortness of breath, dizziness or palpitations. He is maintaining sinus mechanism. Heart rate has been running in the 45-50 range. Currently maintained on amiodarone 100 mg daily, Lopressor 12.5 mg daily, Imdur 60 mg daily, Lasix 20 mg twice a day, Cardura 4 mg daily, atorvastatin 40 mg daily and Eliquis 5 mg twice a day. Amlodipine was added last night for hypertension. Blood pressure 156/70 heart rate 53 afebrile maintaining oxygen saturation on room air. Cardiac enzymes negative 3. GENERAL: Well-appearing, well-nourished and in no acute distress. NECK: Supple without JVD or thyromegaly. LUNGS: Breath sounds clear to auscultation bilaterally. Respiration equal and unlabored. No wheezes, rales or rhonchi. HEART: Regular rate and rhythm without murmurs, rubs or gallops. S1 and S2 heard. EXTREMITIES: Normal range of motion, no edema. No clubbing or cyanosis. Peripheral pulses intact. ASSESSMENT Chest pain, atypical for angina. An acute coronary event has been ruled out. Paroxysmal atrial fibrillation on long-term anticoagulation. Currently maintaining sinus mechanism however is sinus bradycardia. Sinus bradycardia, asymptomatic Diabetes mellitus Hypertension History of coronary artery disease status post bypass grafting PLAN Discontinue Lopressor and amiodarone. Increase activity and ambulation in the halls. Evaluate on telemetry while he is exerting himself. Stable for discharge this afternoon if his heart rate remained stable. Follow-up in the office in one week with Dr. Velasquez. Nurse Practitioner note has been reviewed, I agree with a documented findings and plan of care. Patient was seen and examined. Objective - Vital Signs Vital signs: Vital Signs Temp 98.3 F 08/28/19 08:00 Pulse 53 L 08/28/19 08:00 Resp 16 08/28/19 08:00 BP 156/70 08/28/19 08:00 Pulse Ox 93 L 08/28/19 08:00 Intake & Output 08/27/19 08/28/19 08/28/19 18:59 06:59 18:59 Intake Total 480 240 Balance 480 240 Weight 87.543 kg 87.5 kg Intake: Oral 480 240 Other: Voiding Method Toilet Toilet Toilet # Voids 1 1 - Labs CBC & Chem 7: 08/27/19 09:15 08/27/19 09:15 Labs: Abnormal Lab Results - Last 24 Hours (Table) 08/27/19 08/27/19 08/27/19 Range/Units 09:15 09:15 09:15 RBC 4.02 L (4.30-5.90) m/uL Hgb 12.6 L (13.0-17.5) gm/dL Hct 38.6 L (39.0-53.0) % Lymphocytes # 0.8 L (1.0-4.8) k/uL APTT 35.7 H (22.0-30.0) sec Carbon Dioxide 31 H (22-30) mmol/L Glucose 119 H (74-99) mg/dL Total Bilirubin 1.8 H (0.2-1.3) mg/dL Total Protein 6.2 L (6.3-8.2) g/dL
[2019-08-28 11:22] VITALS: BP 148/69; PULSE 44; TEMP 98.2
--- NOTE | 2019-08-28 21:32 | P.HPIM ---
History of Present Illness H&P Date: 08/28/19 Chief Complaint: Upper back pain History of presenting complaint: This is a pleasant 79-year-old patient of Dr. Curtis. Also follows with Dr. TACOS Velasquez is his weigher and charger. Chronic stable medical conditions include atrial fibrillation, coronary artery disease, BPH. Patient presented with a pain going across the back lower part of the neck. It was present for a few hours. Daily came to the ER. There was no shortness of breath, dizziness, lightheadedness, perspiration. No fever or chills. No cough. Patient's last stress test was about a year ago. Patient normally is active around the house. Given his prior cardiac history he decided to present to the hospital to rule out a cardiac cause. Serial cardiac enzymes were ordered. Cardiology was ordered. He did get some relief with nitroglycerin. Admitted for the same. Patient's son is at the bedside. Review of systems: GEN.: None EYES: None HEENT: None NECK: None RESPIRATORY: None CARDIOVASCULAR: As above] GASTROINTESTINAL: None GENITOURINARY: None MUSCULOSKELETAL: None LYMPHATICS: None HEMATOLOGICAL: None PSYCHIATRY: None NEUROLOGICAL: None Social history: Does smoke in the past. Lives with his daughter. Did work at [employer] Physical examination: VITAL SIGNS: 97.8, 48, 18, 160/62, 96% room air GENERAL: BMI 32.1 sitting up, comfortable. EYES: ils equal. Conjunctiva olegario]l. HEENT: External appearance of nose and ears normal, oral cavity grossly normal. NECK: JVD not raised; masses not palpable. HEART: First and second heart sounds are normal; no edema. LUNGS: Respiratory rate normal; clear to auscultation. ABDOMEN: Soft, nontender, liver spleen not palpable, no masses palpable. PSYCH: Alert and oriented x3; mood and affect normal. NEUROLOGICAL: sly intact]. LYMPHATICS: [No lymph nodes palpable in the axilla and neck] INVESTIGATIONS, reviewed in the clinical context: White count 5.4 hemoglobin 12.6 potassium 4.1 creatinine 1.05 Troponin I 3 negative EKG tracing personally reviewed by me-normal sinus rhythm some T-wave changes and poor R-wave progression Chest x-ray film personally reviewed by me-some cardiomegaly and possible chronic changes Assessment: -This patient presented with pain across his upper back. In a patient known coronary: Artery disease. Troponins are negative. Cardiology was consulted. -Coronary artery disease a history of bypass in 1981 -Paroxysmal atrial fibrillation currently in sinus rhythm -Obesity BMI 32.1 -Essential hypertension -Hyperlipidemia Plan: Home medications resumed. Cardiology was consulted. Care was discussed with the patient. Patient had no further episodes. Because of bradycardia beta neelima dose and amiodarone is being adjusted. Past Medical History Past Medical History: Atrial Fibrillation, Coronary Artery Disease (CAD), Chest Pain / Angina History of Any Multi-Drug Resistant Organisms: None Reported Past Surgical History: Adenoidectomy, Cholecystectomy, Coronary Bypass/CABG Additional Past Surgical History / Comment(s): CABG x2 last surgery in 1981 Past Anesthesia/Blood Transfusion Reactions: No Reported Reaction Past Psychological History: No Psychological Hx Reported Smoking Status: Former smoker Past Alcohol Use History: None Reported Past Drug Use History: None Reported - Past Family History Father Family Medical History: Myocardial Infarction (DC) Mother Family Medical History: CVA/TIA Medications and Allergies Home Medications Medication Instructions Recorded Confirmed Type Doxazosin [Cardura] 4 mg PO DAILY 11/28/18 08/27/19 History Repaglinide 0.5 mg PO BID 11/28/18 08/27/19 History Apixaban [Eliquis] 5 mg PO BID #60 tab 12/04/18 08/27/19 Rx Atorvastatin [Lipitor] 40 mg PO DAILY #30 tab 12/04/18 08/27/19 Rx Furosemide [Lasix] 20 mg PO BID@0900,1600 #30 tab 12/04/18 08/27/19 Rx Isosorbide Mononitrate ER [Imdur] 60 mg PO DAILY #30 tab.er.24h 12/04/18 08/27/19 Rx amLODIPine [Norvasc] 5 mg PO HS #30 tab 08/28/19 Rx Allergies Allergy/AdvReac Type Severity Reaction Status Date / Time No Known Allergies Allergy Verified 08/27/19 09:10 Physical Exam Vitals: Vital Signs Temp Pulse Pulse Resp BP BP Pulse Ox 08/28/19 08:00 98.3 F 53 L 16 156/70 93 L 08/28/19 02:56 98.2 F 51 L 18 138/72 97 08/28/19 00:00 52 L 18 135/79 96 08/27/19 20:00 98 F 49 L 18 182/78 95 08/27/19 15:54 98.3 F 48 L 16 149/68 94 L 08/27/19 14:00 97.8 F 45 L 20 165/67 96 08/27/19 12:41 45 L 20 153/69 99 Intake and Output 08/27/19 08/28/19 08/28/19 22:59 06:59 14:59 Intake Total 240 240 Balance 240 240 Intake: Oral 240 240 Other: Voiding Method Toilet Toilet Toilet # Voids 1 1 Weight 87.5 kg Results CBC & Chem 7: 08/27/19 09:15 08/27/19 09:15 Thrombosis Risk Factor Assmnt - Choose All That Apply Any of the Below Risk Factors Present?: No Each Risk Factor Represents 3 Points: Age 75 years or older Thrombosis Risk Factor Assessment Total Risk Factor Score: 3 Thrombosis Risk Factor Assessment Level: Moderate Risk
--- NOTE | 2019-08-28 21:35 | P.DS ---
Providers Date of admission: 08/27/19 10:48 Expected date of discharge: 08/28/19 Attending physician: Angelo Benson Consults: 08/27/19 10:48 Consult Physician Urgent Consulting Provider: [facility] Consult Reason/Comments: Anginal equivalent Do you want consulting provider notified?: Yes Primary care physician: Tr [facility] Course: Chief Complaint: Upper back pain Hospital course: This is a pleasant 79-year-old patient of Dr. Curtis. Also follows with Dr. TACOS Velasquez is his hat conditioner. Chronic stable medical conditions include atrial fibrillation, coronary artery disease, BPH. Patient presented with a pain going across the back lower part of the neck. It was present for a few hours. Daily came to the ER. There was no shortness of breath, dizziness, lightheadedness, perspiration. No fever or chills. No cough. Patient's last stress test was about a year ago. Patient normally is active around the house. Given his prior cardiac history he decided to present to the hospital to rule out a cardiac cause. Serial cardiac enzymes were ordered. Cardiology was ordered. He did get some relief with nitroglycerin. Admitted for the same. Patient's son is at the bedside. Troponins were negative. Heart rate was low. Beta neelima and amiodarone was discontinued by cardiology. Cleared by them to be discharged. Patient is symptom free up and about before discharge. Consultation: Dr. TACOS Velasquez from cardiology. Physical examination: VITAL SIGNS: 98.2, 44, 16, 148/69, 95% room air GENERAL: Sitting up, comfortable EYES: ils equal. Conjunctiva olegario]l. HEENT: External appearance of nose and ears normal, oral cavity grossly normal. NECK: JVD not raised; masses not palpable. HEART: First and second heart sounds are normal; no edema. LUNGS: Respiratory rate normal; clear to auscultation. ABDOMEN: Soft, nontender, liver spleen not palpable, no masses palpable. PSYCH: Alert and oriented x3; mood and affect normal. INVESTIGATIONS, reviewed in the clinical context: White count 5.4 hemoglobin 12.6 potassium 4.1 creatinine 1.05 Troponin I 3 negative EKG tracing personally reviewed by me-normal sinus rhythm some T-wave changes and poor R-wave progression Chest x-ray film personally reviewed by me-some cardiomegaly and possible chronic changes Discharge diagnosis: -This patient presented with pain across his upper back. Possibly muscular sprain. -Coronary artery disease a history of bypass in 1981 -Paroxysmal atrial fibrillation currently in sinus rhythm -Obesity BMI 32.1 -Essential hypertension -Hyperlipidemia Disposition: Home Patient Condition at Discharge: Stable Plan - Discharge Summary Discharge Rx Participant: No New Discharge Prescriptions: New amLODIPine [Norvasc] 5 mg PO HS #30 tab Continue Repaglinide 0.5 mg PO BID Doxazosin [Cardura] 4 mg PO DAILY Atorvastatin [Lipitor] 40 mg PO DAILY #30 tab Furosemide [Lasix] 20 mg PO BID@0900,1600 #30 tab Isosorbide Mononitrate ER [Imdur] 60 mg PO DAILY #30 tab.er.24h Apixaban [Eliquis] 5 mg PO BID #60 tab Discontinued Metoprolol Tartrate [Lopressor] 25 mg PO QAM Amiodarone [Cordarone] 100 mg PO BID Discharge Medication List Doxazosin [Cardura] 4 mg PO DAILY 11/28/18 [History] Repaglinide 0.5 mg PO BID 11/28/18 [History] Apixaban [Eliquis] 5 mg PO BID #60 tab 12/04/18 [Rx] Atorvastatin [Lipitor] 40 mg PO DAILY #30 tab 12/04/18 [Rx] Furosemide [Lasix] 20 mg PO BID@0900,1600 #30 tab 12/04/18 [Rx] Isosorbide Mononitrate ER [Imdur] 60 mg PO DAILY #30 tab.er.24h 12/04/18 [Rx] amLODIPine [Norvasc] 5 mg PO HS #30 tab 08/28/19 [Rx] Follow up Appointment(s)/Referral(s): Hitesh Velasquez MD [STAFF PHYSICIAN] - 1 Week (Patient to call on Wednesday 08/29 for appointment as the office is closed) Tr Santana DO [Primary Care Provider] - 1-2 days (Patient to call on Wednesday 08/29 for appointment as the office is closed) Patient Instructions/Handouts: Angina (DC) Activity/Diet/Wound Care/Special Instructions: stress test with cardiology - Outpatient Discharge Disposition: HOME SELF-CARE
== END 2019-08-28 13:18 | disposition home or self-care (01) | DRG 563 ==
LOC: EC 08:45 → 3SCARD 10:48
PROVIDERS: ADMIT Hospitalist; ATTEND Hospitalist
DX: S29.012A Strain of muscle and tendon of back wall of thorax, initial encounter (principal); I48.0 Paroxysmal atrial fibrillation; E11.9 Type 2 diabetes mellitus without complications; I25.10 Atherosclerotic heart disease of native coronary artery without angina pectoris; E78.5 Hyperlipidemia, unspecified; I10 Essential (primary) hypertension; I25.2 Old myocardial infarction; N40.0 Benign prostatic hyperplasia without lower urinary tract symptoms; E66.9 Obesity, unspecified; Z68.32 Body mass index [BMI] 32.0-32.9, adult; Z79.01 Long term (current) use of anticoagulants; Z79.899 Other long term (current) drug therapy; Z95.1 Presence of aortocoronary bypass graft; Z87.891 Personal history of nicotine dependence; Z90.49 Acquired absence of other specified parts of digestive tract; Z98.890 Other specified postprocedural states; Z82.49 Family history of ischemic heart disease and other diseases of the circulatory system; Z82.3 Family history of stroke; X58.XXXA Exposure to other specified factors, initial encounter
CPT/HCPCS: 36415; 71046; 80053; 80061; 83735; 83880; 84484; 85025; 85610; 85730; 93005; 96374; 99285

== ENCOUNTER 2022-11-18 13:56 | Emergency (ER) | payer MEDICARE ==
--- NOTE | 2022-11-18 14:31 | ED ---
General Adult HPI - General Source: patient, family, EMS Mode of arrival: EMS Limitations: no limitations <Yves Lemus - Last Filed: 11/18/22 14:30> - General Source: RN notes reviewed, old records reviewed <Nico Brian - Last Filed: 11/18/22 23:08> - General Stated complaint: headache Time Seen by Provider: 11/18/22 14:20 - History of Present Illness Initial comments: 82-year-old male presents emergency from she will left-sided headache. Patient states has been present for a couple days. Patient states she was seen at [facility] yesterday which she had. His labs, EKG because he has underlying heart disease. Patient has no complaints chest pain or shortness of breath he doesn't that he's had some cough, cold like symptoms the symptoms are improving. Patient states that he's had persistent left-sided headache with no visual disturbance, focal weakness, neck pain or neck stiffness. 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 Patient did not have CT of his brain yesterday as this was discussed in his care. Patient denies trauma. (Yves Lemus) Patient was initially evaluated in triage by mid-level provider. Work up was started. Brought back to the emergency department when room was available. Has been having left sided headache is not the worse headache of his life. Was evaluated yesterday at [facility]. Workup was unremarkable he was discharged home. Did not have a CT brain at that time. Denies any neck stiffness, visual disturbances. Patient's family is concerned regarding higher blood pressures and normal for him. Since or further evaluation at this time. He doesn't history of carotid artery stenosis bilaterally. (Nico Brian) - Related Data Home Medications Medication Instructions Recorded Confirmed Doxazosin [Cardura] 4 mg PO DAILY 11/28/18 11/18/22 Repaglinide 0.5 mg PO BID 11/28/18 11/18/22 Furosemide [Lasix] 20 mg PO BID 11/18/22 11/18/22 Metoprolol Tartrate [Lopressor] 12.5 mg PO BID 11/18/22 11/18/22 amLODIPine [Norvasc] 2.5 mg PO DAILY 11/18/22 11/18/22 Previous Rx's Medication Instructions Recorded Apixaban [Eliquis] 5 mg PO BID #60 tab 12/04/18 Atorvastatin [Lipitor] 40 mg PO DAILY #30 tab 12/04/18 Isosorbide Mononitrate ER [Imdur] 60 mg PO DAILY #30 tab.er.24h 12/04/18 Allergies Allergy/AdvReac Type Severity Reaction Status Date / Time No Known Allergies Allergy Verified 11/18/22 14:32 Review of Systems ROS Other: All systems not noted in ROS Statement are negative. <Yves Lemus - Last Filed: 11/18/22 14:30> ROS Other: All systems not noted in ROS Statement are negative. <Nico Brian - Last Filed: 11/18/22 23:08> ROS Statement: Those systems with pertinent positive or pertinent negative responses have been documented in the HPI. Review of Systems: CONST: Denies fever EYES: Denies blurry vision ENT: Denies nasal congestion C/V: Denies Chest pain RESP: Denies shortness of breath GI: Denies abdominal pain : Denies dysuria SKIN: Denies rash. MSK: Denies joint pain. NEURO: Endorses left-sided headache (Nico Brian) Past Medical History Past Medical History: Coronary Artery Disease (CAD), Chest Pain / Angina History of Any Multi-Drug Resistant Organisms: None Reported Past Surgical History: Adenoidectomy, Cholecystectomy, Coronary Bypass/CABG Additional Past Surgical History / Comment(s): CABG x2 last surgery in 1981 Past Anesthesia/Blood Transfusion Reactions: No Reported Reaction Past Psychological History: No Psychological Hx Reported Past Alcohol Use History: None Reported Past Drug Use History: None Reported - Past Family History Father Family Medical History: Myocardial Infarction (ND) Mother Family Medical History: CVA/TIA <Yves Lemus - Last Filed: 11/18/22 14:30> General Exam <Nico Brian - Last Filed: 11/18/22 23:08> - General Exam Comments Initial Comments: General: Appears in no acute distress. HEAD: Normal with no signs of head trauma. EYES: PERRLA, EOMI, conjunctiva normal, no discharge. Pupils 3 mm and equal bilaterally. ENT: Hearing grossly intact, normal oropharynx. RESPIRATORY: Clear breath sounds bilaterally. No wheezes, rales, or rhonchi. C/V: Regular rate and rhythm. S1 and S2 auscultated, no edema, peripheral pulses 2+ and intact throughout ABD: Abd is soft, nontender, nondistended EXT: Normal range of motion, no obvious deformity SKIN: No rashes or lesions observed on exposed skin. NEURO: Alert and oriented x 4. Cranial nerves II-XII intact. No focal sensory or strength deficits. NIH of 0. GCS of 15. (Nico Brian) Course Vital Signs 11/18/22 11/18/22 11/18/22 14:28 18:04 19:46 Temperature 98.2 F Pulse Rate 58 L 62 75 Respiratory 18 17 18 Rate Blood Pressure 122/60 168/83 179/85 O2 Sat by Pulse 95 96 98 Oximetry 11/18/22 11/18/22 20:42 21:30 Temperature Pulse Rate 61 68 Respiratory 18 18 Rate Blood Pressure 175/80 141/78 O2 Sat by Pulse 98 98 Oximetry Medical Decision Making - Lab Data Result diagrams: 11/18/22 14:40 11/18/22 14:40 - EKG Data -: EKG Interpreted by Me <Nico Brian - Last Filed: 11/18/22 23:08> - Medical Decision Making Was pt. sent in by a medical professional or institution? @ -No Did you speak to anyone other than the patient for history? @ -Family Did you review nursing and triage notes? @ -Yes, agree Were old charts reviewed? @ -Previous visits Differential Diagnosis? @ -Differential Headache: Migraine, tension, cluster, central venous thrombosis, intercranial hemorrhage, sinusitis, head injury, this is not meant to be an all-inclusive list. EKG interpreted by me (3pts min.)? @ -Yes, see EKG no X-rays interpreted by me (1pt min.)? @ -none CT interpreted by me (1pt min.)? @ -Yes. Head CT shows no acute intracranial process. CT angiogram of the head and neck reveals no acute process. 25% bilateral stenosis of the carotids read by radiology. No evidence of aneurysm. No intracranial hemorrhage. U/S interpreted by me (1pt. min.)? @ -none What testing was considered but not performed? (CT, X-rays, U/S, labs)? Why? @ None What meds were considered but not given? Why? @ -Meclizine, however patient is not having vertiginous symptoms at this time. States he did have some lightheadedness earlier but that resolved. Did you discuss the management of the patient with other professionals? @ -No Did you reconcile home meds? @ -none Was smoking cessation discussed for >3mins.? @ -none Was critical care preformed (if so, how long)? @ -none Were there social determinants of health that impacted care today? How? (Homelessness, low income, unemployed, alcoholism, drug addiction, transportation, low edu. Level, literacy, decrease access to med. care, longterm, rehab)? @ -No Was there de-escalation of care discussed even if they declined? (Discuss DNR or withdrawal of care, Hospice)? @ -No What co-morbidities impacted this encounter? (DM, HTN, Smoking, COPD, CAD, Cancer, CVA, Hep., AIDS, mental health diagnosis, sleep apnea, morbid obesity)? @ -Hypertension Was patient admitted / discharged? @ -Patient presents with left-sided headache. Is hypertensive as well. This concerned for intracranial process for his current symptoms. Family is concerned regarding hypertension. He has been compliant with medications. I discussed with family as well as the patient that I'm concerned for possible intracranial process. Workup was already started. We reviewed his labs which were within acceptable limits. Covid, flu, RSV negative. EKG shows no ischemic process. Vital signs are within acceptable limits except for mild hypertension of 168/83. He is resting comfortably at this time. I did offer him a CT angiogram at this time as well in addition to the previous workup which he accepted. We reviewed the CT angiogram results as well as CT brain results. I answered all questions that he had. His no more hypertensive at this time at 179/85. Headache is mostly improved but family is concerned and therefore we will administered hydralazine as he is having some mild symptoms of a headache. He will be given a dose of IV hydralazine and reevaluated. On reevaluation, 10 mgs of hydralazine had minimal improvement and blood pressure. Patient is still having mild symptoms. I did then administered 20 mg of hydralazine. Patient's blood pressure improved to 120s over 70s. He did feel lightheaded following this and therefore we will observe him for a short period time after. On reevaluation, patient's headache is resolved. His no acute complaints. Is ambulating without difficulty. I believe is safe for him to be discharged home at this time. In agreement this plan. I recommended follow-up with cardiology. We discussed obtaining blood pressure readings at the same time everyday, approximately 9am. I instructed the patient to follow up with their PCP in the next 1-3 days. I explained that the patient should return to the emergency department if they experience any worsening symptoms. Strict return precautions were discussed with the patient. The patient expressed understanding of these instructions. I answered all questions that the patient had. The patient was discharged home in good condition with their prescriptions and follow up information. Undiagnosed new problem with uncertain prognosis? @ -Acute headache, resolved Drug Therapy requiring intensive monitoring for toxicity (Heparin, Nitro, Insulin, Cardizem)? @ -none Were any procedures done? @ -none Diagnosis/symptom? @ -Acute headache, resolved. Symptomatic hypertension, resolved Acute, or Chronic, or Acute on Chronic? @ -Acute on chronic Uncomplicated (without systemic symptoms) or Complicated (systemic symptoms)? @ -Uncomplicated Side effects of treatment? @ -none Exacerbation, Progression, or Severe Exacerbation] @ -no Poses a threat to life or bodily function? @ -no (Nico Brian) - Lab Data Lab Results 11/18/22 11/18/22 11/18/22 Range/Units 14:40 14:40 14:40 WBC 7.6 (3.8-10.6) k/uL RBC 4.17 L (4.30-5.90) m/uL Hgb 13.0 (13.0-17.5) gm/dL Hct 39.0 (39.0-53.0) % MCV 93.4 (80.0-100.0) fL MCH 31.2 (25.0-35.0) pg MCHC 33.5 (31.0-37.0) g/dL RDW 13.6 (11.5-15.5) % Plt Count 225 (150-450) k/uL MPV 9.4 Neutrophils % 73 % Lymphocytes % 16 % Monocytes % 6 % Eosinophils % 3 % Basophils % 0 % Neutrophils # 5.6 (1.3-7.7) k/uL Lymphocytes # 1.2 (1.0-4.8) k/uL Monocytes # 0.5 (0-1.0) k/uL Eosinophils # 0.2 (0-0.7) k/uL Basophils # 0.0 (0-0.2) k/uL Sodium 140 (137-145) mmol/L Potassium 3.9 (3.5-5.1) mmol/L Chloride 103 (98-107) mmol/L Carbon Dioxide 33 H (22-30) mmol/L Anion Gap 4 mmol/L BUN 21 H (9-20) mg/dL Creatinine 0.86 (0.66-1.25) mg/dL Est GFR (CKD-EPI)AfAm >90 (>60 ml/min/1.73 sqM) Est GFR (CKD-EPI)NonAf 81 (>60 ml/min/1.73 sqM) Glucose 131 H (74-99) mg/dL Calcium 8.8 (8.4-10.2) mg/dL Total Bilirubin 2.2 H (0.2-1.3) mg/dL AST 30 (17-59) U/L ALT 24 (4-49) U/L Alkaline Phosphatase 90 (38-126) U/L Total Protein 6.4 (6.3-8.2) g/dL Albumin 3.9 (3.5-5.0) g/dL Influenza Type A (PCR) Not Detected (Not Detectd) Influenza Type B (PCR) Not Detected (Not Detectd) RSV (PCR) Not Detected (Not Detectd) SARS-CoV-2 (PCR) Not Detected (Not Detectd) - EKG Data EKG Comments: 12-lead Electrocardiogram Interpretation Note EKG was reviewed and interpreted by myself. 12-lead ECG performed at 1446 is interpreted by me as revealing normal sinus rhythm at a rate of 65 beats per minute. [place] is normal. DE interval is 170 ms, QRS duration is 101 ms, QTc is 448 ms.. There were no ST or T wave abnormalities to suggest myocardial ischemia or injury. R wave progression across the precordium was satisfactory. B y my interpretation this EKG is non-diagnostic for acute ischemia. When compared with prior EKG from August 2019, no significant change. (Nico Brian) Disposition <Yves Lemus - Last Filed: 11/18/22 14:30> Is patient prescribed a controlled substance at d/c from ED?: No Time of Disposition: 22:30 <Nico Brian - Last Filed: 11/18/22 23:08> Clinical Impression: Hypertension, Headache Disposition: HOME SELF-CARE Condition: Good Instructions (If sedation given, give patient instructions): Acute Headache (ED) Referrals: Tr Santana DO [Primary Care Provider] - 1-2 days
[2022-11-18 14:47] LABS: Basophils % (A) 0 %; Eosinophils # (A) 0.2 k/uL (0-0.7); Eosinophils % (A) 3 %; Lymphocytes # (A) 1.2 k/uL (1.0-4.8); Lymphocytes % (A) 16 %; MCH 31.2 pg (25.0-35.0); MCHC 33.5 g/dL (31.0-37.0); MCV 93.4 fL (80.0-100.0); Mean Platelet Volume 9.4; Monocytes # (A) 0.5 k/uL (0-1.0); Monocytes % (A) 6 %; Neutrophils # (A) 5.6 k/uL (1.3-7.7); Neutrophils % (A) 73 %; Platelet Count 225 k/uL (150-450); RBC 4.17 m/uL (4.30-5.90); RDW 13.6 % (11.5-15.5); WBC 7.6 k/uL (3.8-10.6)
[2022-11-18 15:12] LABS: ALT 24 U/L (4-49); AST 30 U/L (17-59); African American GFR (CKD) >90 (>60 ml/min/1.73 sqM); Albumin 3.9 g/dL (3.5-5.0); Alkaline Phosphatase 90 U/L (38-126); Anion Gap 4 mmol/L; Blood Urea Nitrogen 21 mg/dL (9-20); Calcium 8.8 mg/dL (8.4-10.2); Carbon Dioxide 33 mmol/L (22-30); Chloride 103 mmol/L (98-107); Glucose 131 mg/dL (74-99); Non-African American GFR(CKD) 81 (>60 ml/min/1.73 sqM); Potassium 3.9 mmol/L (3.5-5.1); Sodium 140 mmol/L (137-145); Total Bilirubin 2.2 mg/dL (0.2-1.3); Total Protein 6.4 g/dL (6.3-8.2)
--- NOTE | 2022-11-18 15:21 | CT ---
EXAMINATION TYPE: CT brain wo con DATE OF EXAM: 11/18/2022 COMPARISON: None HISTORY: 82-year-old male left-sided headache headache TECHNIQUE: Examination was done in axial plane without intravenous contrast. Coronal and sagittal r econstructions performed. CT DLP: 1161.4 mGycm Automated exposure control for dose reduction was used. FINDINGS: There is no evidence of acute intracranial hemorrhage, acute ischemic changes, mass, mass-effect, or extra-axial fluid collection. There is no effacement of cerebral sulci or basal subarachnoid cister ns. Mild ventricular prominence. There is no midline shift. Khan-white matter distinction is preserv ed. Atherosclerotic calcifications within the carotid siphons. Moderate cerebral cortical volume loss. Moderate patchy white matter hypodensity in both cerebral hemispheres. 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 Mild mucosal thickening ethmoid air cells and bilateral maxillary sinuses. Mastoid air cells well pne umatized. Orbits and globes are intact. IMPRESSION: 1. Mild to moderate cerebral atrophy. Mild ventricular prominence likely due to central cerebral volu me loss. Moderate burden of chronic small vessel ischemic disease. No acute intracranial abnormality seen. 2. Mild chronic ethmoid and maxillary sinusitis.
[2022-11-18] MEDS ORDERED: KETOROLAC 15 MG/ML 1 ML VIAL IVP STA (17:43)
[2022-11-18] MEDS ORDERED: SODIUM CHLORIDE 0.9% 1,000 ML IV ONE (17:43)
[2022-11-18] MEDS ORDERED: diphenhydrAMINE 50 MG/ML 1 ML VIAL IVP STA (17:43)
[2022-11-18] MEDS ORDERED: PROCHLORPERAZINE INJ 10 MG/2 ML VIAL IVP STA (17:43)
--- NOTE | 2022-11-18 19:33 | CT ---
EXAMINATION TYPE: CT angio head neck CT DLP: 601.6 mGycm, Automated exposure control for dose reduction was used. DATE OF EXAM: 11/18/2022 7:00 PM COMPARISON: None. CLINICAL INDICATION:Male, 82 years old with history of headache. Known carotid stenosis; PHH, Headach e. hx of carotid stenosis TECHNIQUE: Axially acquired helical CT angiogram of the head and neck was obtained with contrast. Axi al images are supplemented with 3D reconstructions [facility] NASCET criteria used. Contrast used:65ml mL of Isovue 370 with IV Contrast, Oral contrast used: None. FINDINGS: CTA HEAD: No evidence of acute intracranial hemorrhage, mass effect, or midline shift. The ventricles, sulci, a nd cisterns are unremarkable. The visualized portions of the internal carotid arteries, middle cerebral arteries, anterior cerebral arteries, and posterior cerebral arteries are patent. The basilar and vertebral arteries are patent. CTA NECK: Right Carotid System: The common carotid artery and external carotid artery are patent. The carotid bifurcation demonstrate s calcified plaque with less than 25 % stenosis. Tortuous internal carotid artery just after its orig in. The remaining portions of the internal carotid artery demonstrate normal size without significant narrowing. Left Carotid System: The common carotid artery and external carotid artery are patent. The carotid bifurcation demonstrate s calcified plaque with less than 25 % stenosis. Tortuous internal carotid artery just after its orig in. The remaining portions of the internal carotid artery demonstrate normal size without significant narrowing. Vertebral arteries are patent without evidence hemodynamically significant stenosis. There is a dimin utive appearance of the right vertebral artery. Left dominant vertebral artery. There is a three-vessel aortic arch. The origins of the great vessels are patent. No evidence of hemo dynamically significant stenosis. The lenses are absent. IMPRESSION: 1. No evidence of dissection of the cervical internal carotid arteries or vertebral arteries or any e vidence of significant stenosis at the carotid bifurcations. 2. No evidence of intracranial high-grade stenosis or intracranial aneurysm. 3. Diminutive right vertebral artery with dominant left vertebral artery.
[2022-11-18] MEDS ORDERED: hydrALAZINE HCL 20 MG/ML 1 ML VIAL IVP STA ×2 (19:51→20:50)
[2022-11-18 23:15] VITALS: BP 131/68; TEMP 97.6
[2022-11-18 23:18] VITALS: PULSE 73; RESP 16
== END 2022-11-18 23:18 | disposition home or self-care (01) ==
LOC: EC 13:56
DX: I10 Essential (primary) hypertension (principal); R51.9 Headache, unspecified; I25.10 Atherosclerotic heart disease of native coronary artery without angina pectoris; Z79.899 Other long term (current) drug therapy; Z20.822 Contact with and (suspected) exposure to COVID-19
CPT/HCPCS: 99284 ×2; 96374 ×2; 96375 ×3; 96376 ×2; 96361 ×2; 36415; 93005; 80053; 85025; 87636; 70496; 70450; 70498; J0360; J1200; J0780; J1885; Q9967

== ENCOUNTER 2022-12-12 11:41 | Emergency (ER) | payer MEDICARE ==
[2022-12-12 11:53] VITALS: TEMP 98.1
[2022-12-12] MEDS ORDERED: SODIUM CHLORIDE 0.9% 1,000 ML IV STA (11:58)
--- NOTE | 2022-12-12 12:03 | ED ---
General Adult HPI - General Chief complaint: Dizziness Stated complaint: Dizziness Time Seen by Provider: 12/12/22 11:43 Source: patient, RN notes reviewed Mode of arrival: EMS Limitations: no limitations - History of Present Illness Initial comments: Patient is a pleasant 82-year-old male presenting to the emergency department with concerns with lightheadedness. Onset of symptoms was when he woke this morning. Symptoms have slightly improved however do remain. Symptoms are slightly worse when he does get up and move around. Patient denies spinning type sensation. No visual change. No speech problems or confusion. No weakness. Patient is able to ambulate without difficulty. No history of similar symptoms previously. A hernandez has occasional palpitations. - Related Data Home Medications Medication Instructions Recorded Confirmed Doxazosin [Cardura] 4 mg PO DAILY 11/28/18 11/18/22 Repaglinide 0.5 mg PO BID 11/28/18 11/18/22 Furosemide [Lasix] 20 mg PO BID 11/18/22 11/18/22 Metoprolol Tartrate [Lopressor] 12.5 mg PO BID 11/18/22 11/18/22 amLODIPine [Norvasc] 2.5 mg PO DAILY 11/18/22 11/18/22 Previous Rx's Medication Instructions Recorded Apixaban [Eliquis] 5 mg PO BID #60 tab 12/04/18 Atorvastatin [Lipitor] 40 mg PO DAILY #30 tab 12/04/18 Isosorbide Mononitrate ER [Imdur] 60 mg PO DAILY #30 tab.er.24h 12/04/18 Allergies Allergy/AdvReac Type Severity Reaction Status Date / Time No Known Allergies Allergy Verified 11/18/22 14:32 Review of Systems ROS Statement: Those systems with pertinent positive or pertinent negative responses have been documented in the HPI. ROS Other: All systems not noted in ROS Statement are negative. Constitutional: Denies: fever Eyes: Denies: eye pain ENT: Denies: ear pain Respiratory: Denies: cough Cardiovascular: Reports: palpitations. Denies: chest pain Endocrine: Denies: fatigue Gastrointestinal: Denies: abdominal pain Genitourinary: Denies: dysuria Musculoskeletal: Denies: back pain Skin: Denies: rash Neurological: Reports: headache (slight). Denies: weakness, abnormal gait Past Medical History Past Medical History: Coronary Artery Disease (CAD), Chest Pain / Angina History of Any Multi-Drug Resistant Organisms: None Reported Past Surgical History: Adenoidectomy, Cholecystectomy, Coronary Bypass/CABG Additional Past Surgical History / Comment(s): CABG x2 last surgery in 1981 Past Anesthesia/Blood Transfusion Reactions: No Reported Reaction Past Psychological History: No Psychological Hx Reported Smoking Status: Former smoker Past Alcohol Use History: None Reported Past Drug Use History: None Reported - Past Family History Father Family Medical History: Myocardial Infarction ([place]) Mother Family Medical History: CVA/TIA General Exam Limitations: no limitations General appearance: alert, in no apparent distress Head exam: Present: normocephalic Eye exam: Present: normal appearance, PERRL, EOMI. Absent: nystagmus ENT exam: Present: normal oropharynx Neck exam: Present: normal inspection Respiratory exam: Present: normal lung sounds bilaterally Cardiovascular Exam: Present: regular rate, normal rhythm GI/Abdominal exam: Present: soft. Absent: tenderness Extremities exam: Present: normal inspection. Absent: pedal edema, calf tenderness Neurological exam: Present: alert, oriented X3, CN II-XII intact. Absent: motor sensory deficit Expanded Neurological exam: Present: protecting the airway Patient oriented to: Present: person, place, time Speech: Present: fluid speech Cranial nerves: EOM's Intact: Normal Sensory exam: Upper Extremity Light Touch: Normal, Lower Extremity Light Touch: Normal Motor strength exam: RUE: 5, LUE: 5, RLE: 5, LLE: 5 Eye Response: (4) open spontaneously Motor Response: (6) obeys commands Verbal Response: (5) oriented Psychiatric exam: Present: normal affect, normal mood Skin exam: Present: normal color Course Vital Signs 12/12/22 12/12/22 12/12/22 11:44 13:20 13:22 Temperature 98.1 F Pulse Rate 58 L 61 Pulse Rate [ 60 Sitting] Pulse Rate [ 62 Standing] Pulse Rate [ 54 L Supine] Respiratory 16 18 Rate Blood Pressure 138/68 128/62 Blood Pressure 121/71 [Sitting] Blood Pressure 125/62 [Standing] Blood Pressure 135/62 [Supine] O2 Sat by Pulse 95 95 Oximetry EKG Findings - EKG Results: EKG: interpreted by ERMD, sinus rhythm (Sinus arrhythmia), normal axis, normal QRS, normal ST/T EKG shows: bradycardia Medical Decision Making - Medical Decision Making Was pt. sent in by a medical professional or institution (, [facility], [facility], urgent care, hospital, or senior care...) When possible be specific @ -No Did you speak to anyone other than the patient for history (EMS, parent, family, police, friend...)? What history was obtained from this source @ -Family is present on reevaluation and expresses concerns for carotid prob lems. They do have follow-up arty set up and plans for ultrasound arty set up. Did you review nursing and triage notes (agree or disagree)? Why? @ -I reviewed and agree with nursing and triage notes Were old charts reviewed (outside hosp., previous admission, EMS record, old EKG, old radiological studies, urgent care reports/EKG's, senior care records)? Report findings @ -No old charts were reviewed Differential Diagnosis (chest pain, altered mental status, abdominal pain women, abdominal pain men, vaginal bleeding, weakness, fever, dyspnea, syncope, headache, dizziness, GI bleed, back pain, seizure, CVA, palpatations, mental health)? @ -Differential Weakness: Hypoglycemia, shock, sepsis, hyponatremia, anemia, infection, SC, ETOH, adverse medicine reaction, overdose, stroke, this is not meant to be an all-inclusive list. EKG interpreted by me (3pts min.). @ -As above X-rays interpreted by me (1pt min.). @ -Chest x-ray shows probable chronic interstitial change CT interpreted by me (1pt min.). @ -Report reviewed U/S interpreted by me (1pt. min.). @ -None done What testing was considered but not performed or refused? (CT, X-rays, U/S, labs)? Why? @ -None What meds were considered but not given or refused? Why? @ -None Did you discuss the management of the patient with other professionals (professionals i.e. , TORI, CL[facility] MENDER, lab, RT, psych nurse, social worker psychiatric, weaving loom operator, teacher, guest relations officer, rn case manager)? Give summary @ -No Was smoking cessation discussed for >3mins.? @ -No Was critical care preformed (if so, how long)? @ -No Were there social determinants of health that impacted care today? How? (Homelessness, low income, unemployed, alcoholism, drug addiction, transportation, low edu. Level, literacy, decrease access to med. care, [facility], rehab)? @ -No Was there de-escalation of care discussed even if they declined (Discuss DNR or withdrawal of care, Hospice)? DNR status @ -No What co-morbidities impacted this encounter? (DM, HTN, Smoking, COPD, CAD, Cancer, CVA, ARF, Chemo, Hep., AIDS, mental health diagnosis, sleep apnea, morbid obesity)? @ -None Was patient admitted / discharged? Hospital course, mention meds given and route, prescriptions, significant lab abnormalities, going to OR and other pertinent info. @ -Patient reevaluated and feeling much better following Antivert and fluids. Patient and family are updated on results and need for follow-up Undiagnosed new problem with uncertain prognosis? @ -No Drug Therapy requiring intensive monitoring for toxicity (Heparin, Nitro, Insulin, Cardizem)? @ -No Were any procedures done? @ -No Diagnosis/symptom? @ -Lightheadedness Acute, or Chronic, or Acute on Chronic? @ -Acute Uncomplicated (without systemic symptoms) or Complicated (systemic symptoms)? @ -Uncomplicated Side effects of treatment? @ -No Exacerbation, Progression, or Severe Exacerbation? @ -No Poses a threat to life or bodily function? How? (Chest pain, USA, SC, pneumonia, PE, COPD, DKA, ARF, appy, cholecystitis, CVA, Diverticulitis, Homicidal, Suicidal, threat to staff... and all critical care pts) @ -No - Lab Data Result diagrams: 12/12/22 12:15 12/12/22 12:15 Lab Results 12/12/22 12/12/22 12/12/22 Range/Units 12:15 12:15 12:15 WBC 7.7 (3.8-10.6) k/uL RBC 4.43 (4.30-5.90) m/uL Hgb 13.8 (13.0-17.5) gm/dL Hct 40.8 (39.0-53.0) % MCV 92.2 (80.0-100.0) fL MCH 31.1 (25.0-35.0) pg MCHC 33.8 (31.0-37.0) g/dL RDW 13.7 (11.5-15.5) % Plt Count 180 (150-450) k/uL MPV 9.0 Neutrophils % 77 % Lymphocytes % 13 % Monocytes % 5 % Eosinophils % 3 % Basophils % 0 % Neutrophils # 5.9 (1.3-7.7) k/uL Lymphocytes # 1.0 (1.0-4.8) k/uL Monocytes # 0.4 (0-1.0) k/uL Eosinophils # 0.2 (0-0.7) k/uL Basophils # 0.0 (0-0.2) k/uL PT (9.0-12.0) sec INR (<1.2) APTT (22.0-30.0) sec D-Dimer (<0.60) mg/L FEU Sodium 140 (137-145) mmol/L Potassium 3.8 (3.5-5.1) mmol/L Chloride 103 (98-107) mmol/L Carbon Dioxide 30 (22-30) mmol/L Anion Gap 7 mmol/L BUN 22 H (9-20) mg/dL Creatinine 0.89 (0.66-1.25) mg/dL Est GFR (CKD-EPI)AfAm >90 (>60 ml/min/1.73 sqM) Est GFR (CKD-EPI)NonAf 80 (>60 ml/min/1.73 sqM) Glucose 142 H (74-99) mg/dL Plasma Lactic Acid Bryn (0.7-2.0) mmol/L Calcium 8.6 (8.4-10.2) mg/dL Magnesium 2.3 (1.6-2.3) mg/dL Total Bilirubin 2.7 H (0.2-1.3) mg/dL AST 31 (17-59) U/L ALT 27 (4-49) U/L Alkaline Phosphatase 88 (38-126) U/L Troponin I (0.000-0.034) ng/mL NT-Pro-B Natriuret Pep 703 pg/mL Total Protein 6.4 (6.3-8.2) g/dL Albumin 4.0 (3.5-5.0) g/dL TSH 1.590 (0.465-4.680) mIU/L Free T4 1.18 (0.78-2.19) ng/dL Free T3 pg/mL 3.6 (2.8-5.3) pg/ml 12/12/22 12/12/22 12/12/22 Range/Units 12:15 12:15 12:15 WBC (3.8-10.6) k/uL RBC (4.30-5.90) m/uL Hgb (13.0-17.5) gm/dL Hct (39.0-53.0) % MCV (80.0-100.0) fL MCH (25.0-35.0) pg MCHC (31.0-37.0) g/dL RDW (11.5-15.5) % Plt Count (150-450) k/uL MPV Neutrophils % % Lymphocytes % % Monocytes % % Eosinophils % % Basophils % % Neutrophils # (1.3-7.7) k/uL Lymphocytes # (1.0-4.8) k/uL Monocytes # (0-1.0) k/uL Eosinophils # (0-0.7) k/uL Basophils # (0-0.2) k/uL PT 11.9 (9.0-12.0) sec INR 1.1 (<1.2) APTT 31.8 H (22.0-30.0) sec D-Dimer 0.28 (<0.60) mg/L FEU Sodium (137-145) mmol/L Potassium (3.5-5.1) mmol/L Chloride (98-107) mmol/L Carbon Dioxide (22-30) mmol/L Anion Gap mmol/L BUN (9-20) mg/dL Creatinine (0.66-1.25) mg/dL Est GFR (CKD-EPI)AfAm (>60 ml/min/1.73 sqM) Est GFR (CKD-EPI)NonAf (>60 ml/min/1.73 sqM) Glucose (74-99) mg/dL Plasma Lactic Acid Bryn 1.8 (0.7-2.0) mmol/L Calcium (8.4-10.2) mg/dL Magnesium (1.6-2.3) mg/dL Total Bilirubin (0.2-1.3) mg/dL AST (17-59) U/L ALT (4-49) U/L Alkaline Phosphatase (38-126) U/L Troponin I <0.012 (0.000-0.034) ng/mL NT-Pro-B Natriuret Pep pg/mL Total Protein (6.3-8.2) g/dL Albumin (3.5-5.0) g/dL TSH (0.465-4.680) mIU/L Free T4 (0.78-2.19) ng/dL Free T3 pg/mL (2.8-5.3) pg/ml - Radiology Data Radiology results: report reviewed Disposition Clinical Impression: Lightheadedness Disposition: HOME SELF-CARE Condition: Stable Instructions (If sedation given, give patient instructions): Dizziness (ED) Additional Instructions: Please do follow-up with primary care physician as well as your computer language coder in the next couple of days for recheck. Have carotid ultrasound done as planned. Return for increased lightheadedness, weakness, speech problems, visual changes, worsening or changing symptoms or other concerns. Is patient prescribed a controlled substance at d/c from ED?: No Referrals: Tr Santana DO [Primary Care Provider] - 1-2 days Time of Disposition: 14:31
[2022-12-12 12:38] LABS: Basophils % (A) 0 %; Eosinophils # (A) 0.2 k/uL (0-0.7); Eosinophils % (A) 3 %; HCT 40.8 % (39.0-53.0); HGB 13.8 gm/dL (13.0-17.5); Lymphocytes % (A) 13 %; MCH 31.1 pg (25.0-35.0); MCHC 33.8 g/dL (31.0-37.0); MCV 92.2 fL (80.0-100.0); Monocytes # (A) 0.4 k/uL (0-1.0); Monocytes % (A) 5 %; Neutrophils # (A) 5.9 k/uL (1.3-7.7); Neutrophils % (A) 77 %; Platelet Count 180 k/uL (150-450); RBC 4.43 m/uL (4.30-5.90); RDW 13.7 % (11.5-15.5); WBC 7.7 k/uL (3.8-10.6)
--- NOTE | 2022-12-12 12:54 | CT ---
EXAMINATION TYPE: CT brain wo con DATE OF EXAM: 12/12/2022 COMPARISON: 11/18/2022 HISTORY: Weakness, Dizziness, Chest pain CT DLP: 1113.8 mGycm Automated exposure control for dose reduction was used. FINDINGS: There is no evidence of acute intracranial hemorrhage, acute ischemic changes, mass, mass-effect, or extra-axial fluid collection. There is no effacement of cerebral sulci or basal subarachnoid cisterns . Mild ventricular prominence. There is no midline shift. Khan-white matter distinction is preserved. Atherosclerotic calcifications within the carotid siphons. Moderate cerebral cortical volume loss. Moderate patchy white matter hypodensity in both cerebral hem ispheres. Old lacunar infarcts in the basal ganglia and additional hypodensity in the subinsular ti on on both sides. Mild mucosal thickening ethmoid air cells and bilateral maxillary sinuses. Mastoid air cells well pne umatized. Orbits and globes are intact. IMPRESSION: DEGENERATIVE AND NONSPECIFIC WHITE MATTER CHANGES MOST REMOTE ISCHEMIA. IF CONCERN FOR ACUTE ISCHEMIA CORRELATE WITH MRI CLINICALLY WARRANTED.
--- NOTE | 2022-12-12 12:55 | XR ---
EXAMINATION TYPE: XR chest 2V DATE OF EXAM: 12/12/2022 COMPARISON: 08/27/2019 TECHNIQUE: PA and lateral views submitted. HISTORY: Weakness FINDINGS: The lungs are clear and there is no pneumothorax, pleural effusion, or focal pneumonia. Heart size normal and no overt failure. Osseous structures demonstrate hypertrophic and degenerative changes of the spine. Heart is enlarged and there is postoperative change. Coarsened interstitium suggest pulmon julissa fibrosis. Hyperinflation suggests COPD. IMPRESSION: 1. No acute process. COPD and cardiomegaly correlate for chronic interstitial lung disease.
[2022-12-12 13:19] LABS: ALT 27 U/L (4-49); AST 31 U/L (17-59); African American GFR (CKD) >90 (>60 ml/min/1.73 sqM); Alkaline Phosphatase 88 U/L (38-126); Anion Gap 7 mmol/L; Blood Urea Nitrogen 22 mg/dL (9-20); Calcium 8.6 mg/dL (8.4-10.2); Carbon Dioxide 30 mmol/L (22-30); Chloride 103 mmol/L (98-107); Glucose 142 mg/dL (74-99); Magnesium 2.3 mg/dL (1.6-2.3); Non-African American GFR(CKD) 80 (>60 ml/min/1.73 sqM); Potassium 3.8 mmol/L (3.5-5.1); Sodium 140 mmol/L (137-145); Total Bilirubin 2.7 mg/dL (0.2-1.3); Total Protein 6.4 g/dL (6.3-8.2)
[2022-12-12 13:21] VITALS: RESP 18
[2022-12-12] MEDS ORDERED: SODIUM CHLORIDE 0.9% 500 ML 500 ML IV STA (13:22)
[2022-12-12] MEDS ORDERED: MECLIZINE 12.5 MG TAB PO STA (13:22)
[2022-12-12 13:23] LABS: INR 1.1 (<1.2); Partial Thromboplastin Time 31.8 sec (22.0-30.0); Prothrombin Time 11.9 sec (9.0-12.0)
[2022-12-12 13:36] LABS: T4, Free (Free Thyroxine) 1.18 ng/dL (0.78-2.19)
[2022-12-12 15:30] VITALS: BP 132/78; PULSE 80
== END 2022-12-12 15:30 | disposition home or self-care (01) ==
LOC: EC 11:41
DX: R42 Dizziness and giddiness (principal); I25.10 Atherosclerotic heart disease of native coronary artery without angina pectoris; Z79.899 Other long term (current) drug therapy; Z79.01 Long term (current) use of anticoagulants; Z87.891 Personal history of nicotine dependence
CPT/HCPCS: 36415; 70450; 71046; 80053; 83605; 83735; 83880; 84439; 84443; 84481; 84484; 85025; 85379; 85610; 85730; 93005; 96360; 96361; 99285

== ENCOUNTER 2023-07-05 08:30 | Emergency (ER) | payer MEDICARE ==
[2023-07-05 08:41] VITALS: TEMP 97.7
[2023-07-05] MEDS ORDERED: DILTIAZEM DRIP BOLUS FROM BAG 1 MG SOLN IV ONE (08:46)
--- NOTE | 2023-07-05 08:49 | ED ---
General Adult HPI - General Chief complaint: Arrhythmia/Palpitations Stated complaint: A-Fib Time Seen by Provider: 07/05/23 08:31 Source: EMS, RN notes reviewed, old records reviewed Mode of arrival: EMS Limitations: no limitations - History of Present Illness Initial comments: 83-year-old male presenting for evaluation of palpitation and dyspnea. Symptoms began this morning. Patient states he does have history of atrial fibrillation but believes that he is typically in sinus rhythm. He denies cough. Denies fever. Denies chest pain currently but states he does have some tightness in his bilateral upper arms. - Related Data Home Medications Medication Instructions Recorded Confirmed Doxazosin [Cardura] 4 mg PO DAILY 11/28/18 11/18/22 Repaglinide 0.5 mg PO BID 11/28/18 11/18/22 Furosemide [Lasix] 20 mg PO BID 11/18/22 11/18/22 Metoprolol Tartrate [Lopressor] 12.5 mg PO BID 11/18/22 11/18/22 amLODIPine [Norvasc] 2.5 mg PO DAILY 11/18/22 11/18/22 Previous Rx's Medication Instructions Recorded Apixaban [Eliquis] 5 mg PO BID #60 tab 12/04/18 Atorvastatin [Lipitor] 40 mg PO DAILY #30 tab 12/04/18 Isosorbide Mononitrate ER [Imdur] 60 mg PO DAILY #30 tab.er.24h 12/04/18 Allergies Allergy/AdvReac Type Severity Reaction Status Date / Time No Known Allergies Allergy Verified 07/05/23 08:41 Review of Systems ROS Statement: Those systems with pertinent positive or pertinent negative responses have been documented in the HPI. ROS Other: All systems not noted in ROS Statement are negative. Past Medical History Past Medical History: Coronary Artery Disease (CAD), Chest Pain / Angina, Heart Failure, Diabetes Mellitus Additional Past Medical History / Comment(s): skin cancer History of Any Multi-Drug Resistant Organisms: None Reported Past Surgical History: Adenoidectomy, Cholecystectomy, Coronary Bypass/CABG Additional Past Surgical History / Comment(s): CABG x2 last surgery in 1981 Past Anesthesia/Blood Transfusion Reactions: No Reported Reaction Past Psychological History: No Psychological Hx Reported Smoking Status: Former smoker Past Alcohol Use History: None Reported Past Drug Use History: None Reported - Past Family History Father Family Medical History: Myocardial Infarction ([place]) Mother Family Medical History: CVA/TIA General Exam Limitations: no limitations General appearance: alert, in no apparent distress Head exam: Present: atraumatic, normocephalic Eye exam: Present: normal appearance, PERRL ENT exam: Present: normal exam Neck exam: Present: normal inspection. Absent: tenderness, meningismus Respiratory exam: Present: decreased breath sounds. Absent: respiratory distress Cardiovascular Exam: Present: tachycardia, irregular rhythm GI/Abdominal exam: Present: soft. Absent: distended, tenderness, guarding Extremities exam: Absent: calf tenderness Neurological exam: Present: alert, oriented X3 Psychiatric exam: Present: normal affect, normal mood Skin exam: Present: warm, dry, intact. Absent: cyanosis, diaphoretic Course Vital Signs 07/05/23 07/05/23 07/05/23 08:31 09:40 10:36 Temperature 97.7 F Pulse Rate 105 H 100 80 Respiratory 20 18 18 Rate Blood Pressure 148/110 126/75 124/75 O2 Sat by Pulse 95 94 L 93 L Oximetry Medical Decision Making - Medical Decision Making Was pt. sent in by a medical professional or institution (, PA, [facility], urgent care, hospital, or retirement...) When possible be specific @ -[No] Did you speak to anyone other than the patient for history (EMS, parent, family, police, friend...)? What history was obtained from this source @ -[No] Did you review nursing and triage notes (agree or disagree)? Why? @ -[I reviewed and agree with nursing and triage notes] Were old charts reviewed (outside hosp., previous admission, EMS record, old EKG, old radiological studies, urgent care reports/EKG's, retirement records)? Report findings @ -[No old charts were reviewed] Differential Diagnosis (chest pain, altered mental status, abdominal pain women, abdominal pain men, vaginal bleeding, weakness, fever, dyspnea, syncope, headache, dizziness, GI bleed, back pain, seizure, CVA, palpatations, mental health, musculoskeletal)? @ -Differential Palpitations Ventricular arrhythmias, atrial arrhythmias, myocardial infarction, anemia, thyrotoxicosis, electrolyte imbalance, hypokalemia, pulmonary embolism, pulmonary disease, drugs, alcohol, anxiety, stress.... This is not meant to be an all-inclusive list. EKG interpreted by me (3pts min.). @ a-fibrillation with RVR rate of 102, QRS duration 101, QTC 425, no ST segment elevation. Repeat EKG at 1019 sinus rhythm with first-degree AV block rate of 82, NC interval 268, QRS duration 105, QTC [address] segment elevation. X-rays interpreted by me (1pt min.). @ -[Chest x-ray, no focal pneumonia, no acute findings CT interpreted by me (1pt min.). @ -[None done] U/S interpreted by me (1pt. min.). @ -[None done] What testing was considered but not performed or refused? (CT, X-rays, U/S, labs)? Why? @ -[None] What meds were considered but not given or refused? Why? @ -[None] Did you discuss the management of the patient with other professionals (professionals i.e. , PA, [facility], lab, RT, psych nurse, clinical social work therapist, host/hostess head, teacher, armed custom protection officer, ed case manager)? Give summary @ -[No] Was smoking cessation discussed for >3mins.? @ -[No] Was critical care preformed (if so, how long)? @Yes, 35 minutes Were there social determinants of health that impacted care today? How? (Homelessness, low income, unemployed, alcoholism, drug addiction, transportation, low edu. Level, literacy, decrease access to med. care, intermediate, rehab)? @ -[No] Was there de-escalation of care discussed even if they declined (Discuss DNR or withdrawal of care, Hospice)? DNR status @ -[No] What co-morbidities impacted this encounter? (DM, HTN, Smoking, COPD, CAD, Cancer, CVA, ARF, Chemo, Hep., AIDS, mental health diagnosis, sleep apnea, morbid obesity)? @ -Atrial fibrillation Was patient admitted / discharged? Hospital course, mention meds given and route, prescriptions, significant lab abnormalities, going to OR and other pertinent info. @83-year-old male with palpitations. Initial heart rhythm is atrial fibrillation with a rate between 101 20. Laboratory studies are obtained which are unremarkable. Chest x-ray is clear. Patient is initially in nature fibrillation started on low-dose Cardizem and converted to sinus rhythm. Patien t is asymptomatic without complaints and is eager for discharge. He will take his medication as prescribed. Return parameters discussed. Undiagnosed new problem with uncertain prognosis? @ -[No] Drug Therapy requiring intensive monitoring for toxicity (Heparin, Nitro, Insulin, Cardizem)? @ -[No] Were any procedures done? @ -[No] Diagnosis/symptom? @ -Atrial fibrillation Acute, or Chronic, or Acute on Chronic? @ -[default] Uncomplicated (without systemic symptoms) or Complicated (systemic symptoms)? @ -[default] Side effects of treatment? @ -[No] Exacerbation, Progression, or Severe Exacerbation? @ -[No] Poses a threat to life or bodily function? How? (Chest pain, USA, [place], pneumonia, PE, COPD, DKA, ARF, appy, cholecystitis, CVA, Diverticulitis, Homicidal, Suicidal, threat to staff... and all critical care pts) @Yes, risk of arrhythmia - Lab Data Result diagrams: 07/05/23 08:48 07/05/23 08:48 Lab Results 07/05/23 07/05/23 07/05/23 Range/Units 08:48 08:48 08:48 WBC 8.0 (3.8-10.6) k/uL RBC 4.50 (4.30-5.90) m/uL Hgb 14.4 (13.0-17.5) gm/dL Hct 42.6 (39.0-53.0) % MCV 94.8 (80.0-100.0) fL MCH 32.1 (25.0-35.0) pg MCHC 33.9 (31.0-37.0) g/dL RDW 13.5 (11.5-15.5) % Plt Count 178 (150-450) k/uL MPV 9.1 Neutrophils % 69 % Lymphocytes % 18 % Monocytes % 7 % Eosinophils % 4 % Basophils % 0 % Neutrophils # 5.6 (1.3-7.7) k/uL Lymphocytes # 1.4 (1.0-4.8) k/uL Monocytes # 0.6 (0-1.0) k/uL Eosinophils # 0.3 (0-0.7) k/uL Basophils # 0.0 (0-0.2) k/uL PT 11.3 (9.0-12.0) sec INR 1.1 (<1.2) APTT 32.8 H (22.0-30.0) sec Sodium 139 (137-145) mmol/L Potassium 3.9 (3.5-5.1) mmol/L Chloride 105 (98-107) mmol/L Carbon Dioxide 29 (22-30) mmol/L Anion Gap 5 mmol/L BUN 16 (9-20) mg/dL Creatinine 0.83 (0.66-1.25) mg/dL Est GFR (CKD-EPI)AfAm >90 (>60 ml/min/1.73 sqM) Est GFR (CKD-EPI)NonAf 81 (>60 ml/min/1.73 sqM) Glucose 154 H (74-99) mg/dL Calcium 8.4 (8.4-10.2) mg/dL Magnesium 2.4 H (1.6-2.3) mg/dL Total Bilirubin 2.8 H (0.2-1.3) mg/dL AST 32 (17-59) U/L ALT 26 (4-49) U/L Alkaline Phosphatase 99 (38-126) U/L Troponin I (0.000-0.034) ng/mL NT-Pro-B Natriuret Pep 939 pg/mL Total Protein 6.7 (6.3-8.2) g/dL Albumin 4.1 (3.5-5.0) g/dL TSH 1.770 (0.465-4.680) mIU/L 07/05/23 Range/Units 08:48 WBC (3.8-10.6) k/uL RBC (4.30-5.90) m/uL Hgb (13.0-17.5) gm/dL Hct (39.0-53.0) % MCV (80.0-100.0) fL MCH (25.0-35.0) pg MCHC (31.0-37.0) g/dL RDW (11.5-15.5) % Plt Count (150-450) k/uL MPV Neutrophils % % Lymphocytes % % Monocytes % % Eosinophils % % Basophils % % Neutrophils # (1.3-7.7) k/uL Lymphocytes # (1.0-4.8) k/uL Monocytes # (0-1.0) k/uL Eosinophils # (0-0.7) k/uL Basophils # (0-0.2) k/uL PT (9.0-12.0) sec INR (<1.2) APTT (22.0-30.0) sec Sodium (137-145) mmol/L Potassium (3.5-5.1) mmol/L Chloride (98-107) mmol/L Carbon Dioxide (22-30) mmol/L Anion Gap mmol/L BUN (9-20) mg/dL Creatinine (0.66-1.25) mg/dL Est GFR (CKD-EPI)AfAm (>60 ml/min/1.73 sqM) Est GFR (CKD-EPI)NonAf (>60 ml/min/1.73 sqM) Glucose (74-99) mg/dL Calcium (8.4-10.2) mg/dL Magnesium (1.6-2.3) mg/dL Total Bilirubin (0.2-1.3) mg/dL AST (17-59) U/L ALT (4-49) U/L Alkaline Phosphatase (38-126) U/L Troponin I <0.012 (0.000-0.034) ng/mL NT-Pro-B Natriuret Pep pg/mL Total Protein (6.3-8.2) g/dL Albumin (3.5-5.0) g/dL TSH (0.465-4.680) mIU/L Critical Care Time Critical Care Time: Yes Total Critical Care Time: 35 Disposition Clinical Impression: Atrial fibrillation Disposition: HOME SELF-CARE Condition: Good Instructions (If sedation given, give patient instructions): A-fib (Atrial Fibrillation) (ED), Heart Palpitations (ED) Is patient prescribed a controlled substance at d/c from ED?: No Referrals: Tr Santana DO [Primary Care Provider] - 1-2 days Time of Disposition: 10:41
[2023-07-05 08:58] LABS: Basophils % (A) 0 %; Eosinophils # (A) 0.3 k/uL (0-0.7); Eosinophils % (A) 4 %; HCT 42.6 % (39.0-53.0); HGB 14.4 gm/dL (13.0-17.5); Lymphocytes # (A) 1.4 k/uL (1.0-4.8); Lymphocytes % (A) 18 %; MCH 32.1 pg (25.0-35.0); MCHC 33.9 g/dL (31.0-37.0); MCV 94.8 fL (80.0-100.0); Mean Platelet Volume 9.1; Monocytes # (A) 0.6 k/uL (0-1.0); Monocytes % (A) 7 %; Neutrophils # (A) 5.6 k/uL (1.3-7.7); Neutrophils % (A) 69 %; Platelet Count 178 k/uL (150-450); RDW 13.5 % (11.5-15.5)
[2023-07-05 09:11] LABS: INR 1.1 (<1.2); Partial Thromboplastin Time 32.8 sec (22.0-30.0); Prothrombin Time 11.3 sec (9.0-12.0)
[2023-07-05] MEDS ORDERED: DILTIAZEM 125 MG in SODIUM CHLORIDE 0.9% 100 ML IV SCH (09:30)
[2023-07-05 09:33] LABS: ALT 26 U/L (4-49); AST 32 U/L (17-59); African American GFR (CKD) >90 (>60 ml/min/1.73 sqM); Albumin 4.1 g/dL (3.5-5.0); Alkaline Phosphatase 99 U/L (38-126); Anion Gap 5 mmol/L; Blood Urea Nitrogen 16 mg/dL (9-20); Calcium 8.4 mg/dL (8.4-10.2); Carbon Dioxide 29 mmol/L (22-30); Chloride 105 mmol/L (98-107); Glucose 154 mg/dL (74-99); Magnesium 2.4 mg/dL (1.6-2.3); Non-African American GFR(CKD) 81 (>60 ml/min/1.73 sqM); Potassium 3.9 mmol/L (3.5-5.1); Sodium 139 mmol/L (137-145); Total Bilirubin 2.8 mg/dL (0.2-1.3); Total Protein 6.7 g/dL (6.3-8.2)
[2023-07-05 09:41] LABS: NT-Pro-B-Type Natriuretic Pept 939 pg/mL
[2023-07-05 09:43] VITALS: RESP 18
--- NOTE | 2023-07-05 09:48 | XR ---
EXAMINATION TYPE: XR chest 2V DATE OF EXAM: 07/05/2023 COMPARISON: 12/12/2022 HISTORY: Shortness of breath TECHNIQUE: Frontal and lateral views of the chest are obtained. FINDINGS: Scattered senescent parenchymal changes noted. Hyperinflation compatible with COPD. No evidence for infiltrate. No evidence for atelectasis. Heart size is stable. Mediastinal structures are stable and grossly unremarkable. No evidence for hilar prominence. Degenerative changes dorsal spine. IMPRESSION: 1. No evidence for acute pulmonary disease.
[2023-07-05 11:25] VITALS: BP 133/86; PULSE 86
== END 2023-07-05 11:25 | disposition home or self-care (01) ==
LOC: EC 08:30
DX: I48.91 Unspecified atrial fibrillation (principal); E11.9 Type 2 diabetes mellitus without complications; I25.10 Atherosclerotic heart disease of native coronary artery without angina pectoris; I50.9 Heart failure, unspecified; Z87.891 Personal history of nicotine dependence; Z79.899 Other long term (current) drug therapy; Z95.1 Presence of aortocoronary bypass graft
CPT/HCPCS: 36415; 71046; 80053; 83735; 83880; 84443; 84484; 85025; 85610; 85730; 93005; 96374; 96375; 99291

== ENCOUNTER 2023-07-05 11:27 | Inpatient (IN) | payer MEDICARE ==
[2023-07-05] MEDS ORDERED: FUROSEMIDE 20 MG TAB PO STA (12:02)
[2023-07-05] MEDS ORDERED: METOPROLOL TARTRATE 25 MG TAB PO STA (12:02)
--- NOTE | 2023-07-05 12:39 | ED ---
General Adult HPI - General Chief complaint: Arrhythmia/Palpitations Stated complaint: SOB Time Seen by Provider: 07/05/23 11:45 Source: patient, RN notes reviewed, old records reviewed Mode of arrival: ambulatory Limitations: no limitations - History of Present Illness Initial comments: 83 yo female presents for reevaluation of palpitations. Patient has history of atrial fibrillation. He was seen in the emergency department by myself approximately one hour ago with atrial fibrillation which converted to sinus rhythm. Patient does report mild dyspnea and palpitations with exertion. No central chest pain. No fever. - Related Data Home Medications Medication Instructions Recorded Confirmed Doxazosin [Cardura] 4 mg PO DAILY 11/28/18 07/05/23 Repaglinide 0.5 mg PO BID 11/28/18 07/05/23 Furosemide [Lasix] 20 mg PO BID 11/18/22 07/05/23 Metoprolol Tartrate [Lopressor] 12.5 mg PO BID 11/18/22 07/05/23 amLODIPine [Norvasc] 2.5 mg PO DAILY 11/18/22 07/05/23 Vit C/E/Zn/Coppr/Lutein/Zeaxan 1 cap PO BID 07/05/23 07/05/23 [Preservision Areds 2 Softgel] Previous Rx's Medication Instructions Recorded Apixaban [Eliquis] 5 mg PO BID #60 tab 12/04/18 Atorvastatin [Lipitor] 40 mg PO DAILY #30 tab 12/04/18 Isosorbide Mononitrate ER [Imdur] 60 mg PO DAILY #30 tab.er.24h 12/04/18 Allergies Allergy/AdvReac Type Severity Reaction Status Date / Time No Known Allergies Allergy Verified 07/05/23 13:55 Review of Systems ROS Statement: Those systems with pertinent positive or pertinent negative responses have been documented in the HPI. ROS Other: All systems not noted in ROS Statement are negative. Past Medical History Past Medical History: Coronary Artery Disease (CAD), Chest Pain / Angina, Heart Failure, Diabetes Mellitus Additional Past Medical History / Comment(s): skin cancer History of Any Multi-Drug Resistant Organisms: None Reported Past Surgical History: Adenoidectomy, Cholecystectomy, Coronary Bypass/CABG Additional Past Surgical History / Comment(s): CABG x2 last surgery in 1981 Past Anesthesia/Blood Transfusion Reactions: No Reported Reaction Past Psychological History: No Psychological Hx Reported Smoking Status: Former smoker Past Alcohol Use History: None Reported Past Drug Use History: None Reported - Past Family History Father Family Medical History: Myocardial Infarction ([place]) Mother Family Medical History: CVA/TIA General Exam Limitations: no limitations General appearance: alert, in no apparent distress Head exam: Present: atraumatic, normocephalic Eye exam: Present: normal appearance, PERRL ENT exam: Present: normal exam Neck exam: Present: normal inspection. Absent: tenderness, meningismus Respiratory exam: Present: normal lung sounds bilaterally. Absent: respiratory distress, wheezes Cardiovascular Exam: Present: regular rate, normal rhythm GI/Abdominal exam: Present: soft. Absent: distended, tenderness Extremities exam: Present: normal inspection, normal capillary refill. Absent: pedal edema Neurological exam: Present: alert, oriented X3, CN II-XII intact. Absent: motor sensory deficit Psychiatric exam: Present: normal affect, normal mood Skin exam: Present: warm, dry, intact Course Vital Signs 07/05/23 07/05/23 11:41 12:30 Temperature 98 F Pulse Rate 80 105 H Respiratory 20 18 Rate Blood Pressure 138/80 150/77 O2 Sat by Pulse 96 92 L Oximetry - Reevaluation(s) Reevaluation #1: 07/05/23 14:01 Initial EKG is sinus with a first-degree AV block however patient does convert to a trip fibrillation with rapid ventricular response which is sustained rate between 1:15 and 125. He's placed back on Cardizem drip and will be observed for telemetry, rate control, cardiology consultation. Medical Decision Making - Medical Decision Making Was pt. sent in by a medical professional or institution (, PA, CLOTH TESTER, urgent care, hospital, or assisted...) When possible be specific @ -No Did you speak to anyone other than the patient for history (EMS, parent, family, police, friend...)? What history was obtained from this source @ -No Did you review nursing and triage notes (agree or disagree)? Why? @ -I reviewed and agree with nursing and triage notes Were old charts reviewed (outside hosp., previous admission, EMS record, old EKG, old radiological studies, urgent care reports/EKG's, assisted records)? Report findings @ -No old charts were reviewed Differential Diagnosis (chest pain, altered mental status, abdominal pain women, abdominal pain men, vaginal bleeding, weakness, fever, dyspnea, syncope, headache, dizziness, GI bleed, back pain, seizure, CVA, palpatations, mental health, musculoskeletal)? @ -Differential Palpitations Ventricular arrhythmias, atrial arrhythmias, myocardial infarction, anemia, thyrotoxicosis, electrolyte imbalance, hypokalemia, pulmonary embolism, pulmonary disease, drugs, alcohol, anxiety, stress.... This is not meant to be an all-inclusive list. EKG interpreted by me (3pts min.). @Sinus rhythm with first-degree AV block, rate of 80, NV interval 263, QS duration 98 QTC 313, PVC, no ST segment elevation. X-rays interpreted by me (1pt min.). @ -None done CT interpreted by me (1pt min.). @ -None done U/S interpreted by me (1pt. min.). @ -None done What testing was considered but not performed or refused? (CT, X-rays, U/S, labs)? Why? @ -None What meds were considered but not given or refused? Why? @ -None Did you discuss the management of the patient with other professionals (professionals i.e. , PA, CLOTH TESTER, lab, RT, psych nurse, social insurance administrator, air valve mechanic, teacher, operations officer, caseworker protective services)? Give summary @ -[facility] physician group Was smoking cessation discussed for >3mins.? @ -No Was critical care preformed (if so, how long)? @ -yes, 35 Were there social determinants of health that impacted care today? How? (Homelessness, low income, unemployed, alcoholism, drug addiction, transportation, low edu. Level, literacy, decrease access to med. care, retirement, rehab)? @ -No Was there de-escalation of care discussed even if they declined (Discuss DNR or withdrawal of care, Hospice)? DNR status @ -No What co-morbidities impacted this encounter? (DM, HTN, Smoking, COPD, CAD, Cancer, CVA, ARF, Chemo, Hep., AIDS, mental health diagnosis, sleep apnea, morbid obesity)? @ -None Was patient admitted / discharged? Hospital course, mention meds given and route, prescriptions, significant lab abnormalities, going to OR and other pertinent info. @ -[83-year-old male with rapid atrial fibrillation, started on Cardizem. Admitted to a monitored bed. Laboratory studies have been obtained on the ER visit that was within 90 minutes of the repeat visit. Patient is chest pain- free. Undiagnosed new problem with uncertain prognosis? @ -No Drug Therapy requiring intensive monitoring for toxicity (Heparin, Nitro, Insulin, Cardizem)? @ -No Were any procedures done? @ -No Diagnosis/symptom? @ A. fib with RVR Acute, or Chronic, or Acute on Chronic? @ -[Acute Uncomplicated (without systemic symptoms) or Complicated (systemic symptoms)? @ -default Side effects of treatment? @ -No Exacerbation, Progression, or Severe Exacerbation? @ -No Poses a threat to life or bodily function? How? (Chest pain, [place], [place], pneumonia, PE, COPD, DKA, ARF, appy, cholecystitis, CVA, Diverticulitis, Homicidal, Suicidal, threat to staff... and all critical care pts) @ -Yes, risk of sustained arrhythmia Critical Care Time Critical Care Time: Yes Total Critical Care Time: 35 Disposition Clinical Impression: Atrial fibrillation with RVR Disposition: ADMITTED IP TO THIS HOSP Condition: Stable Is patient prescribed a controlled substance at d/c from ED?: No Referrals: Tr Santana DO [Primary Care Provider] - 1-2 days Time of Disposition: 14:04
[2023-07-05] MEDS ORDERED: DILTIAZEM DRIP BOLUS FROM BAG 1 MG SOLN IV ONE (13:39)
[2023-07-05] MEDS ORDERED: NALOXONE 0.4 MG/ML 1 ML VIAL IV PRN (14:00)
[2023-07-05] MEDS ORDERED: DILTIAZEM 125 MG in SODIUM CHLORIDE 0.9% 100 ML IV SCH (14:15)
[2023-07-05] MEDS ORDERED: DEXTROSE 50% SYRINGE 50 ML IVP PRN ×2 (15:44)
--- NOTE | 2023-07-05 15:46 | P.HPIM ---
History of Present Illness H&P Date: 07/05/23 History of Presenting Illness: Patient is a very pleasant 83-year-old male with a past medical history of paroxysmal atrial fibrillation status post previous cardioversion on anticoagulation with Eliquis, hypertension, CAD status post CABG 2, and chronic systolic heart failure with previously known EF of 40%. He presented to the emergency department with a chief complaint of palpitations, chest tightness, and shortness of breath. Patient reports these symptoms began today and he came to the emergency department for evaluation but these symptoms resolved without intervention and he converted back into normal sinus rhythm so he was discharged home. Patient reports less than 10 minutes after discharge he again became and feeling that same fluttering and palpitations in his chest along with a tightness and shortness of breath. Patient denies having any headache, lightheadedness, dizziness, nausea, vomiting, or experiencing any numbness/tingling/weakness/swelling in his extremities. Patient currently reports chest tightness, palpitations, and shortness of breath have resolved at rest and since treatment received by ED team. Patient underwent full evaluation in the emergency department. Vital signs upon arrival blood pressure 150/77, h eart rate 105, respiratory rate 18, and SpO2 of 92% on room air. Initial EKG showing atrial fibrillation with RVR 102 bpm upon personal review and interpretation. Repeat EKG showing atrial flutter at 82 bpm upon personal review and interpretation. Labs completed and reviewed. CBC unremarkable. Coagulation profile showing elevated PTT of 32.8 otherwise normal findings. BMP unremarkable with the exception of elevated glucose of 154. Magnesium slightly elevated at 2.4 and bilirubin also elevated at 2.8. Troponin was negative at less than 0.012 and proBNP 939. TSH normal findings at 1.770. Chest x-ray completed, lungs appear clear and radiology report reviewed stating negative for acute cardiopulmonary process patient was given Cardizem bolus and started on Cardizem infusion at 5 mL per hour. Discussed patient's history, chief complaint, physical exam findings, laboratory analysis, and imaging results in detail with the ED physician. Patient to be admitted under our services at this time with consultation to cardiology. Patient reports he follows up outpatient with caterpillar mechanic, Dr. Velasquez. Review of systems: Pertinent positives and negatives as discussed in HPI, a complete review of systems was performed and all other systems are negative. Physical exam: Vital signs reviewed and stable. General: Nontoxic, no distress and appears stated age. Derm: Skin warm and dry, normal coloration for ethnicity. Head: Atraumatic, normocephalic and symmetric. Eyes: EOMs intact, no lid lag, and anicteric sclera Mouth: no lip lesions, mucus membranes moist Cardiovascular: regular rate and rhythm with normal S1S2 at time of assessment, systolic murmur, positive posterior tibial pulses bilaterally, and cap refill < 2 seconds. Lungs: Respirations even, regular, and unlabored on room air. Lungs CTA bilaterally, no rhonchi, no rales, no wheezing, and no accessory muscle usage. Abdominal: soft, nontender to palpation, no guarding, no appreciable organomegaly Ext: ROM intact. No gross muscle atrophy, scant lower extremity edema, no contractures Neuro: Speech clear, face symmetrical and CN II-XII grossly intact with no noted focal neuro deficits Psych: Alert and oriented to person, place, time, and situation. Appropriate and pleasant affect. Assessment and Plan of Care: Patient is a pleasant 83-year-old male with a past medical history of paroxysmal atrial fibrillation status post previous cardioversion who follows up outpatient with Dr. Velasquez, hypertension, CAD status post CABG 2, and chronic systolic heart failure with previously known EF of 40%. He presented to the emergency department with a chief complaint of palpitations, chest tightness, and shortness of breath. -Vital signs upon arrival blood pressure 150/77, heart rate 105, respiratory rate 18, and SpO2 of 92% on room air. -Initial EKG showing atrial fibrillation with RVR 102 bpm upon personal review and interpretation. -Repeat EKG showing atrial flutter at 82 bpm upon personal review and interpretation. -Labs completed and reviewed. CBC unremarkable. Coagulation profile showing elevated PTT of 32.8 otherwise normal findings. BMP unremarkable with the exception of elevated glucose of 154. Magnesium slightly elevated at 2.4 and bilirubin also elevated at 2.8. Troponin was negative at less than 0.012 and proBNP 939. TSH normal findings at 1.770. -Chest x-ray completed, lungs appear clear and radiology report reviewed stating negative for acute cardiopulmonary process. -Patient was given Cardizem bolus and started on Cardizem infusion at 5 mL per hour. Discussed patient's history, chief complaint, physical exam findings, laboratory analysis, and imaging results in detail with the ED physician. -Patient to be admitted under our services at this time with consultation to cardiology. Atrial fibrillation with RVR CAD status post CABG 2 Chronic systolic heart failure with previous known EF of 40% Hypertension Palpitations, Chest tightness, and shortness of breath -Cardiology consulted, appreciate further recommendations -Continue with Cardizem infusion at 5 mg per hour, pending control of RVR and/or conversion to sinus mechanism. -Telemetry monitoring -Trend troponins -Cardiac diet, NPO at midnight -Continue cardiac medication regimen with Aspirin 81 mg daily, Eliquis 5 mg twice daily, atorvastatin 40 mg daily, furosemide 20 mg twice daily, isosorbide mononitrate 60 mg daily, and increased Metroprolol tartrate to 25 mg twice daily. -Echocardiogram ordered previous echo completed in 2019 showing an EF of 40% The patient is admitted with an anticipated greater than 2 midnight stay for evaluation of atrial fibrillation with RVR CODE STATUS: Full code DVT prophylaxis: Eliquis Discussed with: Patient, patient's family at bedside, ED physician and RN Anticipated discharge date: Clinical course to determine Anticipated discharge place: Home Patient was seen independently by Nurse Practitioner. This document was prepared using [employer] dictation software. Please allow for e rrors in picker/puller while rare they do occur. I reviewed the documentation as provided by the JIM above, who is the original author of this note. I agree with the documented assessment and plan, with the following changes: none Past Medical History Past Medical History: Coronary Artery Disease (CAD), Chest Pain / Angina, Heart Failure, Diabetes Mellitus Additional Past Medical History / Comment(s): skin cancer History of Any Multi-Drug Resistant Organisms: None Reported Past Surgical History: Adenoidectomy, Cholecystectomy, Coronary Bypass/CABG Additional Past Surgical History / Comment(s): CABG x2 last surgery in 1981 Past Anesthesia/Blood Transfusion Reactions: No Reported Reaction Past Psychological History: No Psychological Hx Reported Smoking Status: Former smoker Past Alcohol Use History: None Reported Past Drug Use History: None Reported - Past Family History Father Family Medical History: Myocardial Infarction ([place]) Mother Family Medical History: CVA/TIA Medications and Allergies Home Medications Medication Instructions Recorded Confirmed Type Doxazosin [Cardura] 4 mg PO DAILY 11/28/18 07/05/23 History Repaglinide 0.5 mg PO BID 11/28/18 07/05/23 History Apixaban [Eliquis] 5 mg PO BID #60 tab 12/04/18 07/05/23 Rx Atorvastatin [Lipitor] 40 mg PO DAILY #30 tab 12/04/18 07/05/23 Rx Isosorbide Mononitrate ER [Imdur] 60 mg PO DAILY #30 tab.er.24h 12/04/18 07/05/23 Rx Furosemide [Lasix] 20 mg PO BID 11/18/22 07/05/23 History Metoprolol Tartrate [Lopressor] 12.5 mg PO BID 11/18/22 07/05/23 History amLODIPine [Norvasc] 2.5 mg PO DAILY 11/18/22 07/05/23 History Vit C/E/Zn/Coppr/Lutein/Zeaxan 1 cap PO BID 07/05/23 07/05/23 History [Preservision Areds 2 Softgel] Allergies Allergy/AdvReac Type Severity Reaction Status Date / Time No Known Allergies Allergy Verified 07/05/23 13:55 Physical Exam Osteopathic Statement: *. No significant issues noted on an osteopathic structural exam other than those noted in the History and Physical/Consult. Vitals: Vital Signs Temp Pulse Resp BP Pulse Ox 07/05/23 14:20 111 H 20 120/71 95 07/05/23 12:30 105 H 18 150/77 92 L 07/05/23 11:41 98 F 80 20 138/80 96 Intake and Output 07/05/23 07/05/23 07/05/23 06:59 14:59 22:59 Other: Weight 81.647 kg
[2023-07-05 18:25] LABS: Glucose,Whole Blood 176 mg/dL (70-110)
[2023-07-05] MEDS: ASPIRIN 81 MG PO SCH (18:47)
[2023-07-05] MEDS: INSULIN ASPART (NovoLOG) 100 UNIT/ML VIAL SQ SCH ×2 (18:52→21:15)
[2023-07-05 20:13] LABS: Glucose,Whole Blood 177 mg/dL (70-110)
[2023-07-05] MEDS ORDERED: METOPROLOL TARTRATE 12.5 MG TAB PO SCH (21:00)
[2023-07-05] MEDS: APIXABAN 5 MG TAB PO SCH (21:14)
[2023-07-05] MEDS: FUROSEMIDE 20 MG TAB PO SCH (21:14)
[2023-07-05] MEDS: METOPROLOL TARTRATE 25 MG TAB PO SCH ×2 (21:15→23:35)
[2023-07-06 06:15] LABS: Glucose,Whole Blood 121 mg/dL (70-110)
[2023-07-06] MEDS: INSULIN ASPART (NovoLOG) 100 UNIT/ML VIAL SQ SCH ×4 (06:22→22:21)
--- NOTE | 2023-07-06 08:56 | CONS ---
CONSULTATION CHIEF COMPLAINT: Palpitations. HISTORY OF PRESENT ILLNESS: Rony is an 83-year-old gentleman with history of paroxysmal atrial fibrillation, coronary artery disease, status post prior bypass surgery, who presented to hospital complaining of sustained palpitations. The patient complaining of sustained palpitations. It came on suddenly, felt like palpitations at rest, lasted for a while. He came to the ER, where he converted to sinus rhythm and was initially discharged home. On his way as he was walking out of the hospital, he went back into atrial fibrillation, following which he is admitted to hospital. At the time of my evaluation, he appears comfortable at rest and is free of symptoms. The patient had a cardiac catheterization in November 2018 that revealed severe three-vessel coronary artery disease with patent JACOBS to LAD with collaterals to the distal RCA. The patient was advised medical therapy at that time. He also had a ANKIT cardioversion at 1 time. His EKG post conversion to sinus rhythm shows sinus bradycardia with nonspecific ST-T wave changes. He is currently on metoprolol and is also taking Eliquis for anticoagulation. He has had 2 sets of troponins that are all within normal limits. PAST MEDICAL HISTORY: Significant for paroxysmal atrial fibrillation, coronary artery disease, status post bypass surgery x2, hypertension. MEDICATIONS: Medications at home included; 1. Amlodipine. 2. Lopressor 12.5 b.i.d. 3. Imdur 60 two daily. 4. Lasix 20 b.i.d. 5. Cardura. 6. Lipitor. 7. Eliquis. ALLERGIES: There are no known drug allergies. FAMILY HISTORY: Negative for premature coronary artery disease. SOCIAL HISTORY: Negative for smoking, EtOH abuse, or drug abuse. REVIEW OF SYSTEMS: 14 out of 14 review of systems has been performed. Pertinents are as documented. PHYSICAL EXAMINATION: GENERAL: Comfortable at rest. VITAL SIGNS: Stable. NECK: There is no jugular venous distention. Carotid upstroke is normal. There is no bruit. CHEST: Reveals good air entry bilaterally. HEART: Reveals first and second heart sounds. Ejection systolic murmur in the aortic area. ABDOMEN: Soft. EXTREMITIES: Did not reveal any edema. Peripheral pulses are felt. LABORATORY DATA: Show that the troponin is negative. Hemoglobin is normal. Potassium 3.9, creatinine is 0.8. ASSESSMENT: Paroxysmal atrial fibrillation, coronary artery disease, status post coronary artery bypass grafting x2. PLAN: I am going to ambulate him, start him on amiodarone for rhythm suppression. Obtain a 2D echo. If he is doing well, we should be able to discharge him home tomorrow. JOSE MANUEL / CORA: [phone] /
[2023-07-06] MEDS: APIXABAN 5 MG TAB PO SCH ×2 (10:00→21:30)
[2023-07-06] MEDS: AMIODARONE 200 MG TAB PO SCH ×2 (10:00→21:30)
[2023-07-06] MEDS: amLODIPine 2.5 MG TAB PO SCH (10:00)
[2023-07-06] MEDS: ASPIRIN 81 MG PO SCH (10:01)
[2023-07-06] MEDS: FUROSEMIDE 20 MG TAB PO SCH ×2 (10:01→21:31)
[2023-07-06] MEDS: DOXAZOSIN 4 MG TAB PO SCH (10:01)
[2023-07-06] MEDS: METOPROLOL TARTRATE 25 MG TAB PO SCH ×2 (10:02→21:30)
[2023-07-06] MEDS: ATORVASTATIN 40 MG TAB PO SCH (10:02)
[2023-07-06] MEDS: ISOSORBIDE MONONITRATE ER 60 MG TAB.ER.24H PO SCH (10:02)
[2023-07-06 12:11] LABS: Glucose,Whole Blood 209 mg/dL (70-110)
--- NOTE | 2023-07-06 14:05 | P.PN ---
Progress Note - Text Echocardiogram obtained from the cardiology office on 06/08/2023 reveals ejection fraction 40-45%, small hypokinetic areas of inferior and inferior septal joshua at the base, mild concentric left ventricular hypertrophy, moderate mitral regurgitation, and mild tricuspid regurgitation
[2023-07-06 15:19] LABS: BUN/Creat Ratio 17.18 Ratio (12.00-20.00); Blood Urea Nitrogen 18.9 mg/dL (9.0-27.0); Calcium 8.9 mg/dL (8.7-10.3); Carbon Dioxide 29.2 mmol/L (21.6-31.8); Chloride 102 mmol/L (96-109); Glucose 144 mg/dL (70-110); Potassium 4.3 mmol/L (3.5-5.5); Sodium 143 mmol/L (135-145)
[2023-07-06 17:18] LABS: Glucose,Whole Blood 173 mg/dL (70-110)
--- NOTE | 2023-07-06 18:22 | P.PN ---
Subjective Progress Note Date: 07/06/23 History of Presenting Illness: Patient is a very pleasant 83-year-old male with a past medical history of paroxysmal atrial fibrillation status post previous cardioversion on anticoagulation with Eliquis, hypertension, CAD status post CABG 2, and chronic systolic heart failure with previously known EF of 40%. He presented to the emergency department with a chief complaint of palpitations, chest tightness, and shortness of breath. Patient underwent full evaluation in the emergency department. Vital signs upon arrival blood pressure 150/77, heart rate 105, respiratory rate 18, and SpO2 of 92% on room air. Initial EKG showing atrial fibrillation with RVR 102 bpm upon personal review and interpretation. Repeat EKG showing atrial flutter at 82 bpm upon personal review and interpretation. Labs completed and reviewed. CBC unremarkable. Coagulation profile showing elevated PTT of 32.8 otherwise normal findings. BMP unremarkable with the exception of elevated glucose of 154. Magnesium slightly elevated at 2.4 and bilirubin also elevated at 2.8. Troponin was negative at less than 0.012 and proBNP 939. TSH normal findings at 1.770. Chest x-ray completed, lungs appear clear and radiology report reviewed stating negative for acute cardiopulmonary process patient was given Cardizem bolus and started on Cardizem infusion at 5 mL per hour. Discussed patient's history, chief complaint, physical exam findings, laboratory analysis, and imaging results in detail with the ED physician. Patient to be admitted under our services at this time with consultation to cardiology. Patient reports he follows up outpatient with revenue specialist, Dr. Velasquez. Physical exam: Vital signs reviewed and stable. General: Nontoxic, no distress and appears stated age. Derm: Skin warm and dry, normal coloration for ethnicity. Head: Atraumatic, normocephalic and symmetric. Eyes: EOMs intact, no lid lag, and anicteric sclera Mouth: no lip lesions, mucus membranes moist Cardiovascular: Irregularly irregular with normal S1S2 at time of assessment, systolic murmur, positive posterior tibial pulses bilaterally, and cap refill < 2 seconds. Lungs: Respirations even, regular, and unlabored on room air. Lungs CTA bilaterally, no rhonchi, no rales, no wheezing, and no accessory muscle usage. Abdominal: soft, nontender to palpation, no guarding, no appreciable organomegaly Ext: ROM intact. No gross muscle atrophy, scant lower extremity edema, no contractures Neuro: Speech clear, face symmetrical and CN II-XII grossly intact with no noted focal neuro deficits Psych: Alert and oriented to person, place, time, and situation. Appropriate and pleasant affect. Assessment and Plan of Care: Patient is a pleasant 83-year-old male with a past medical history of paroxysmal atrial fibrillation status post previous cardioversion who follows up outpatient with Dr. Velasquez, hypertension, CAD status post CABG 2, and chronic systolic heart failure with previously known EF of 40%. He presented to the emergency department with a chief complaint of palpitations, chest tightness, and shortness of breath. Atrial fibrillation with RVR CAD status post CABG 2 Chronic systolic heart failure with previous known EF of 40% Hypertension Palpitations, Chest tightness, and shortness of breath -Cardiology following, started patient on amiodarone 400 mg twice daily and recommending continued overnight telemetry monitoring. -Continue Telemetry monitoring. -Cardiac diet -Continue cardiac medication regimen with Aspirin 81 mg daily, Eliquis 5 mg twice daily, atorvastatin 40 mg daily, furosemide 20 mg twice daily, isosorbide mononitrate 60 mg daily, and increased Metroprolol tartrate to 25 mg twice daily. -Patient encouraged to ambulate as tolerated, would like to monitor heart rate with ambulation/exertion. -Echocardiogram ordered previous echo completed in 2019 showing an EF of 40% CODE STATUS: Full code DVT prophylaxis: Isela Discussed with: Patient, patient's family at bedside, cardiology FULL STACK SOFTWARE DEVELOPER and RN Anticipated discharge date: Likely within the next 24-[address]: Home Patient was seen independently by Nurse Practitioner. This document was prepared using [employer] dictation software. Please allow for errors in assembler erector while rare they do occur. I reviewed the documentation as provided by the JIM above, who is the original author of this note. I agree with the documented assessment and plan, with the following changes: none Objective - Vital Signs Vital signs: Vital Signs Temp 97.3 F L 07/06/23 03:20 Pulse 59 L 07/06/23 03:20 Resp 13 07/06/23 03:20 BP 148/58 07/06/23 03:20 Pulse Ox 100 07/06/23 03:20 FiO2 Intake & Output 07/05/23 07/06/23 07/06/23 18:59 06:59 18:59 Intake Total 118 Output Total 350 Balance 118 -350 Weight 81.647 kg Intake: Oral 118 Output: Urine 350 Other: # Voids 1 - Labs CBC & Chem 7: 07/06/23 08:19 Labs: Abnormal Lab Results - Last 24 Hours (Table) 07/05/23 07/05/23 07/06/23 Range/Units 18:10 20:12 06:13 POC Glucose (mg/dL) 176 H 177 H 121 H (70-110) mg/dL
[2023-07-06] MEDS ORDERED: polyethylene glycoL 3350 17 GM POWD.PACK PO SCH (21:00)
[2023-07-06 22:12] LABS: Glucose,Whole Blood 145 mg/dL (70-110)
[2023-07-07 06:34] LABS: Glucose,Whole Blood 139 mg/dL (70-110)
[2023-07-07] MEDS: INSULIN ASPART (NovoLOG) 100 UNIT/ML VIAL SQ SCH (06:39)
[2023-07-07 07:32] VITALS: BP 118/55; PULSE 54; RESP 16; TEMP 98.2
[2023-07-07] MEDS: ASPIRIN 81 MG PO SCH (08:38)
[2023-07-07] MEDS: FUROSEMIDE 20 MG TAB PO SCH (08:39)
[2023-07-07] MEDS: METOPROLOL TARTRATE 25 MG TAB PO SCH (08:39)
[2023-07-07] MEDS: APIXABAN 5 MG TAB PO SCH (08:39)
[2023-07-07] MEDS: ISOSORBIDE MONONITRATE ER 60 MG TAB.ER.24H PO SCH (08:39)
[2023-07-07] MEDS: amLODIPine 2.5 MG TAB PO SCH (08:39)
[2023-07-07] MEDS: ATORVASTATIN 40 MG TAB PO SCH (08:39)
[2023-07-07] MEDS: DOXAZOSIN 4 MG TAB PO SCH (08:40)
[2023-07-07] MEDS ORDERED: AMIODARONE 200 MG TAB PO SCH (09:00)
--- NOTE | 2023-07-07 09:24 | P.PN ---
Subjective HISTORY OF PRESENT ILLNESS: This is an 83-year-old male who follows in the office with Dr. Velasquez. Patient is admitted to the hospital secondary to palpitations and an episode of atrial fibrillation. Patient is maintaining sinus mechanism this morning. Patient did have some bradycardia overnight with heart rates in the 40s. Patient denies chest pain or pressure. He denies shortness of breath. He denies dizziness or lightheadedness. Blood pressure stable. PHYSICAL EXAM: VITAL SIGNS: Reviewed. GENERAL: Well-developed in no acute distress. NECK: Supple. No JVD or thyromegaly LUNGS: Respirations even and unlabored. Lungs essentially clear to auscultation bilaterally. HEART: Regular rate and rhythm. S1 and S2 heard. Systolic murmur noted EXTREMITIES: Normal range of motion. No clubbing or cyanosis. Peripheral pulses intact. No lower extremity edema ASSESSMENT: Palpitations Paroxysmal atrial fibrillation Sinus bradycardia, asymptomatic Coronary artery disease with previous CABG Hypertension Hyperlipidemia PLAN: Continue current dose of metoprolol 25 mg twice a day Decrease amiodarone to 200 mg twice a day Patient is stable for discharge home today from a cardiac seen point He is to follow up post discharge with Dr. Velasquez Nurse practitioner note has been reviewed by physician. Signing provider agrees with the documented findings, assessment, and plan of care. Objective - Vital Signs Vital signs: Vital Signs Temp 98.2 F 07/07/23 07:32 Pulse 54 L 07/07/23 07:32 Resp 16 07/07/23 07:32 BP 118/55 07/07/23 07:32 Pulse Ox 93 L 07/07/23 07:32 FiO2 Intake & Output 07/06/23 07/07/23 07/07/23 18:59 06:59 18:59 Intake Total 118 Balance 118 Intake: Oral 118 Other: # Voids 2 2 - Labs CBC & Chem 7: 07/06/23 08:19 Labs: Abnormal Lab Results - Last 24 Hours (Table) 07/06/23 07/06/23 07/06/23 Range/Units 08:19 08:19 12:09 Glucose 144 H (70-110) mg/dL POC Glucose (mg/dL) 209 H (70-110) mg/dL Hemoglobin A1c 6.7 H (<=6.0) % 07/06/23 07/06/23 07/07/23 Range/Units 17:17 22:11 06:32 Glucose (70-110) mg/dL POC Glucose (mg/dL) 173 H 145 H 139 H (70-110) mg/dL Hemoglobin A1c (<=6.0) %
--- NOTE | 2023-07-07 09:32 | P.DS ---
Providers Date of admission: 07/06/23 12:55 Expected date of discharge: 07/07/23 Attending physician: Karol Gruber MD Consults: 07/05/23 14:00 Consult Physician Routine Consulting Provider: Abisai Osborn Consult Reason/Comments: a-fib Do you want consulting provider notified?: Yes Primary care physician: Tr [facility] Course: Discharge Diagnosis: Atrial fibrillation with RVR. Patient converted back into sinus mechanism with frequent PACs. Patient discharged home on metoprolol 25 mg twice daily in addition to amiodarone 200 mg twice daily. CAD status post CABG 2 Chronic systolic heart failure with previous known EF of 40% Hypertension Palpitations, Chest tightness, and shortness of breath Hospital Course: Patient is a very pleasant 83-year-old male with a past medical history of paroxysmal atrial fibrillation status post previous cardioversion on anti coagulation with Eliquis, hypertension, CAD status post CABG 2, and chronic systolic heart failure with previously known EF of 40%. He presented to the emergency department with a chief complaint of palpitations, chest tightness, and shortness of breath. Patient underwent full evaluation in the emergency department. Vital signs upon arrival blood pressure 150/77, heart rate 105, respiratory rate 18, and SpO2 of 92% on room air. Initial EKG showing atrial fibrillation with RVR 102 bpm upon personal review and interpretation. Repeat EKG showing atrial flutter at 82 bpm upon personal review and interpretation. Labs completed and reviewed. CBC unremarkable. Coagulation profile showing elevated PTT of 32.8 otherwise normal findings. BMP unremarkable with the exception of elevated glucose of 154. Magnesium slightly elevated at 2.4 and bilirubin also elevated at 2.8. Troponin was negative at less than 0.012 and proBNP 939. TSH normal findings at 1.770. Chest x-ray completed, lungs appear clear and radiology report reviewed stating negative for acute cardiopulmonary process patient was given Cardizem bolus and started on Cardizem infusion at 5 mL per hour. Discussed patient's history, chief complaint, physical exam findings, laboratory analysis, and imaging results in detail with the ED physician. Patient to be admitted under our services at this time with consultation to cardiology. Patient reports he follows up outpatient with pet adoption counselor, Dr. Velasquez. Patient has converted to sinus mechanism but continues to throw multiple PACs. Cardiology evaluated and was in agreement with increasing metoprolol to 25 mg twice daily and added on amiodarone. Patient monitored throughout the night and was noted to have bradycardic events with heart rate dipping down into the 40s. Cardiology decreasing amiodarone to 200 mg twice daily and clearing patient from cardiac perspective for discharge with outpatient follow-up in their office. Patient has an appointment on Thursday07/13/[address] Velasquez. Medically, patient is stable at this time he denies having any complaints. He has been ambulating up and down the halls with no further episodes of A. fib RVR. Patient stable for discharge home, prescription sent to pharmacy. Patient to follow up outpatient with PCP in 1-2 days and cardiology next week as scheduled. Physical exam: Vital signs reviewed and stable. General: Nontoxic, no distress and appears stated age. Derm: Skin warm and dry, normal coloration for ethnicity. Head: Atraumatic, normocephalic and symmetric. Eyes: EOMs intact, no lid lag, and anicteric sclera Mouth: no lip lesions, mucus membranes moist Cardiovascular: Bradycardic rate and regular rhythm with normal S1S2 at time of assessment, systolic murmur, positive posterior tibial pulses bilaterally, and cap refill < 2 seconds. Lungs: Respirations even, regular, and unlabored on room air. Lungs CTA bilaterally, no rhonchi, no rales, no wheezing, and no accessory muscle usage. Abdominal: soft, nontender to palpation, no guarding, no appreciable organomegaly Ext: ROM intact. No gross muscle atrophy, scant lower extremity edema, no con tractures Neuro: Speech clear, face symmetrical and CN II-XII grossly intact with no noted focal neuro deficits Psych: Alert and oriented to person, place, time, and situation. Appropriate and pleasant affect. A total of 33 minutes of time were spent preparing this complex discharge summary. Pt was discharged on 07/07/23 at 9:39 AM. Patient was seen independently by Nurse Practitioner. This document was prepared using [employer] dictation software. Please allow for errors in lifts and cranes inspector while rare they do occur. I reviewed the documentation as provided by the JIM above, who is the original author of this note. I agree with the documented assessment and plan, with the following changes: none Patient Condition at Discharge: Stable Plan - Discharge Summary Discharge Rx Participant: Yes New Discharge Prescriptions: New Amiodarone [Cordarone] 200 mg PO BID 30 Days #60 tab Metoprolol Tartrate [Lopressor] 25 mg PO BID 30 Days #60 tab Continue Repaglinide 0.5 mg PO BID Doxazosin [Cardura] 4 mg PO DAILY Atorvastatin [Lipitor] 40 mg PO DAILY #30 tab Isosorbide Mononitrate ER [Imdur] 60 mg PO DAILY #30 tab.er.24h Apixaban [Eliquis] 5 mg PO BID #60 tab amLODIPine [Norvasc] 2.5 mg PO DAILY Furosemide [Lasix] 20 mg PO BID Vit C/E/Zn/Coppr/Lutein/Zeaxan [Preservision Areds 2 Softgel] 1 cap PO BID Discontinued Metoprolol Tartrate [Lopressor] 12.5 mg PO BID Discharge Medication List Doxazosin [Cardura] 4 mg PO DAILY 11/28/18 [History] Repaglinide 0.5 mg PO BID 11/28/18 [History] Apixaban [Eliquis] 5 mg PO BID #60 tab 12/04/18 [Rx] Atorvastatin [Lipitor] 40 mg PO DAILY #30 tab 12/04/18 [Rx] Isosorbide Mononitrate ER [Imdur] 60 mg PO DAILY #30 tab.er.24h 12/04/18 [Rx] Furosemide [Lasix] 20 mg PO BID 11/18/22 [History] amLODIPine [Norvasc] 2.5 mg PO DAILY 11/18/22 [History] Vit C/E/Zn/Coppr/Lutein/Zeaxan [Preservision Areds 2 Softgel] 1 cap PO BID 07/05/23 [History] Amiodarone [Cordarone] 200 mg PO BID 30 Days #60 tab 07/07/23 [Rx] Metoprolol Tartrate [Lopressor] 25 mg PO BID 30 Days #60 tab 07/07/23 [Rx] Follow up Appointment(s)/Referral(s): Hitesh Velasquez MD [STAFF PHYSICIAN] - 07/13/23 10:00 am (Appoint is with Doris PEACE and Dr. Velasquez) Tr Santana DO [Primary Care Provider] - 1-2 days Patient Instructions/Handouts: A-fib (Atrial Fibrillation) (DC) Activity/Diet/Wound Care/Special Instructions: Activity: As tolerated. Take breaks as needed. Diet: Heart healthy and carb consistent diet. Avoid salts, or foods with hidden salts such as canned or boxed foods and frozen dinners. Extra salt makes your heart work harder and traps the fluid in your body for longer. Special Instructions: Take all of your medications as directed and remember to keep all of your doctor's appointments and follow-up as needed. Thank you for allowing us to participate in your care, it was truly a pleasure having you for our patient!!! Discharge/Stand Alone Forms: Community Resources, Personal System Operation Superintendent Discharge Disposition: HOME SELF-CARE
== END 2023-07-07 11:16 | disposition home or self-care (01) | DRG 309 ==
LOC: EC 11:27 → 6NMEDSUR 14:00 → OBSVTOIN 07-06 12:55
PROVIDERS: ADMIT Internal Medicine; ATTEND Internal Medicine
DX: I48.0 Paroxysmal atrial fibrillation (principal); I50.22 Chronic systolic (congestive) heart failure; I25.10 Atherosclerotic heart disease of native coronary artery without angina pectoris; I44.0 Atrioventricular block, first degree; I48.92 Unspecified atrial flutter; R79.1 Abnormal coagulation profile; I11.0 Hypertensive heart disease with heart failure; I08.1 Rheumatic disorders of both mitral and tricuspid valves; E78.5 Hyperlipidemia, unspecified; Z79.01 Long term (current) use of anticoagulants; Z79.899 Other long term (current) drug therapy; Z82.49 Family history of ischemic heart disease and other diseases of the circulatory system; Z85.828 Personal history of other malignant neoplasm of skin; Z95.1 Presence of aortocoronary bypass graft; Z87.891 Personal history of nicotine dependence
CPT/HCPCS: 80048; 83036; 84484; 93005; 96365; 99291

== ENCOUNTER 2024-07-29 23:26 | Inpatient (IN) | payer MEDICARE ==
--- NOTE | 2024-07-29 23:36 | ED ---
Arrhythmia/Palpitations HPI - General Stated Complaint: SVT Time Seen by Provider: 07/29/24 23:30 Source: RN notes reviewed, old records reviewed Limitations: no limitations - History of Present Illness Initial Comments: This is a 84-year-old male to ER for evaluation of severely elevated heart rate brought in by EMS called EMS for palpitations and elevated heart rate history of atrial fibrillation. Patient is taking blood thinners as prescribed. Patient states he feels better improved here in the ER and was given adenosine by EMS and route Complaint: rapid heart beat, "heart racing", palpitations, irregular heart beat, atrial fibrillation -: hour(s) Arrhythmia History: atrial fibrillation Associated Symptoms: chest pain, shortness of breath Treatments Prior to Arrival: adenosine - Related Data Home Medications Medication Instructions Recorded Confirmed Vit C/E/Zn/Coppr/Lutein/Zeaxan 1 cap PO BID 07/05/23 07/30/24 [Preservision Areds 2 Softgel] Previous Rx's Medication Instructions Recorded Apixaban [Eliquis] 5 mg PO BID #60 tab 12/04/18 Isosorbide Mononitrate ER [Imdur] 60 mg PO DAILY #30 tab.er.24h 12/04/18 Amiodarone [Cordarone] 100 mg PO DAILY #30 tab 08/03/24 Ascorbic Acid [Vitamin C] 500 mg PO DAILY #0 tab 08/03/24 Aspirin 81 mg PO DAILY #30 tab 08/03/24 Atorvastatin [Lipitor] 20 mg PO DAILY #30 tab 08/03/24 Benzonatate [Tessalon Perles] 100 mg PO TID PRN #20 cap 08/03/24 Cholecalciferol [Vitamin D3 (25 50 mcg PO DAILY tab 08/03/24 Mcg = 1000 Iu)] Dapagliflozin Propanediol [Farxiga] 10 mg PO DAILY #30 tab 08/03/24 Diltiazem Oral [Cardizem*] 60 mg PO QID PRN #20 tab 08/03/24 Furosemide [Lasix] 20 mg PO DAILY #30 tab 08/03/24 Losartan [Cozaar] 50 mg PO DAILY #30 tab 08/03/24 Metoprolol Succinate (ER) [Toprol 12.5 mg PO DAILY #30 tab 08/03/24 XL] Zinc Sulfate [Orazinc] 220 mg PO DAILY #14 cap 08/03/24 Allergies Allergy/AdvReac Type Severity Reaction Status Date / Time No Known Allergies Allergy Verified 07/30/24 11:34 Review of Systems ROS Statement: Those systems with pertinent positive or pertinent negative responses have been documented in the HPI. ROS Other: All systems not noted in ROS Statement are negative. 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 Absent: scleral icterus, con junctival injection, periorbital swelling ENT exam: Present: normal exam, mucous membranes moist Neck exam: Present: normal inspection. Absent: tenderness, meningismus, lymphadenopathy Respiratory exam: Present: normal lung sounds bilaterally. Absent: respiratory distress, wheezes, rales, rhonchi, stridor Cardiovascular Exam: Present: tachycardia, irregular rhythm, normal heart sounds. Absent: systolic murmur, diastolic murmur, rubs, gallop, clicks GI/Abdominal exam: Present: soft, normal bowel sounds. Absent: distended, tenderness, guarding, rebound, rigid Extremities exam: Present: normal inspection, full ROM, normal capillary refill. Absent: tenderness, pedal edema, joint swelling, calf tenderness Back exam: Present: normal inspection Neurological exam: Present: alert, oriented X3, CN II-XII intact Psychiatric exam: Present: normal affect, normal mood Skin exam: Present: warm, dry, intact, normal color. Absent: rash Course Vital Signs 07/29/24 07/30/24 07/30/24 23:35 00:53 01:08 Temperature 98.0 F Pulse Rate 98 106 H 73 Pulse Rate [ Pulse Oximetery ] Respiratory 18 18 16 Rate Blood Pressure 145/72 129/81 146/67 Blood Pressure [Left Arm Supine] O2 Sat by Pulse 95 94 L 93 L Oximetry 07/30/24 07/30/24 07/30/24 04:00 06:00 08:10 Temperature Pulse Rate 75 84 114 H Pulse Rate [ Pulse Oximetery ] Respiratory 18 16 18 Rate Blood Pressure 121/98 112/72 114/96 Blood Pressure [Left Arm Supine] O2 Sat by Pulse 97 97 98 Oximetry 07/30/24 07/30/24 07/30/24 08:54 09:57 10:03 Temperature Pulse Rate 51 L 55 L Pulse Rate [ Pulse Oximetery ] Respiratory 18 18 16 Rate Blood Pressure 123/61 126/60 Blood Pressure [Left Arm Supine] O2 Sat by Pulse 99 99 Oximetry 07/30/24 07/30/24 07/30/24 13:13 15:19 18:09 Temperature Pulse Rate 53 L 51 L 56 L Pulse Rate [ Pulse Oximetery ] Respiratory 14 16 18 Rate Blood Pressure 123/57 113/55 133/60 Blood Pressure [Left Arm Supine] O2 Sat by Pulse 100 97 95 Oximetry 07/30/24 07/30/24 19:25 20:05 Temperature 97.3 F L 97.5 F L Pulse Rate 56 L Pulse Rate [ 54 L Pulse Oximetery ] Respiratory 18 16 Rate Blood Pressure 116/71 Blood Pressure 147/61 [Left Arm Supine] O2 Sat by Pulse 98 96 Oximetry - Reevaluation(s) Reevaluation #1: 07/30/24 00:03 Medical records reviewed Reevaluation #2: 07/30/24 00:03 Patient symptoms are dramatically improved here in the ER and he continues to feel well Reevaluation #3: 07/30/24 00:03 Patient informed of results and questions answered Reevaluation #4: Was pt. sent in by a medical professional or institution (, PA, CONFERENCE SPECIALIST, urgent care, hospital, or custodial...) When possible be specific @ -no Did you speak to anyone other than the patient for history (EMS, parent, family, police, friend...)? What history was obtained from this source @ -no Did you review nursing and triage notes (agree or disagree)? Why? @ -agree Are old charts reviewed (outside hosp., previous admission, EMS record, old EKG, old radiological studies, urgent care reports/EKG's, custodial records)? Report findings @ -yes Differential Diagnosis (chest pain, altered mental status, abdominal pain women, abdominal pain men, vaginal bleeding, weakness, fever, dyspnea, syncope, headache, dizziness, GI bleed, back pain, seizure, CVA, palpatations, mental health, musculoskeletal)? @ -prior EKG interpreted by me (3pts min.). @ -yes X-rays interpreted by me (1pt min.). @ -yes negative for acute disease CT interpreted by me (1pt min.). @ -no U/S interpreted by me (1pt. min.). @ -no What testing was considered but not performed or refused? (CT, X-rays, U/S, labs)? Why? @ -none What meds were considered but not given or refused? Why? @ -none Did you discuss the management of the patient with other professionals (professionals i.e. , PA, CONFERENCE SPECIALIST, lab, RT, psych nurse, community mental health social worker, film librarian, teacher, trust officer, rn case management)? Give summary @ -no Was smoking cessation discussed for >3mins.? @ -no Was critical care preformed (if so, how long)? @ -yes31 Were there social determinants of health that impacted care today? How? (Homelessness, low income, unemployed, alcoholism, drug addiction, transportation, low edu. Level, literacy, decrease access to med. care, shelter, rehab)? @ -none Was there de-escalation of care discussed even if they declined (Discuss DNR or withdrawal of care, Hospice)? DNR status @ -no What co-morbidities impacted this encounter? (DM, HTN, Smoking, COPD, CAD, Cancer, CVA, ARF, Chemo, Hep., AIDS, mental health diagnosis, sleep apnea, morbid obesity)? @ -none Was patient admitted / discharged? Hospital course, mention meds given and route, prescriptions, significant lab abnormalities, going to OR and other pertinent info. @ - 84 male with SVT, given adenosine by EMS A-fib here in the ER atrial fibrillation with RVR will admit for cardiology evaluation Admitted Undiagnosed new problem with uncertain prognosis? @ -no Drug Therapy requiring intensive monitoring for toxicity (Heparin, Nitro, Insulin, Cardizem)? @ -no Were any procedures done? @ -no Diagnosis/symptom? @ -SVT and A-fib with RVR Acute, or Chronic, or Acute on Chronic? @ -Acute Uncomplicated (without systemic symptoms) or Complicated (systemic symptoms)? @ -Complicated Side effects of treatment? @ -no Exacerbation, Progression, or Severe Exacerbation? @ -exacerbation Poses a threat to life or bodily function? How? (Chest pain, USA, NM, pneumonia, PE, COPD, DKA, ARF, appy, cholecystitis, CVA, Diverticulitis, Homicidal, Suicidal, threat to staff... and all critical care pts) @ -yes Reevaluation #5: Differential Palpitations Ventricular arrhythmias, atrial arrhythmias, myocardial infarction, anemia, thyrotoxicosis, electrolyte imbalance, hypokalemia, pulmonary embolism, pulmonary disease, drugs, alcohol, anxiety, stress.... This is not meant to be an all-inclusive list. - Consultations Consultation #1: Spoke with [facility] [place] who agreed to admit this patient EKG Findings - EKG Comments: EKG Findings:: EKG is A-fib 87 QRS 111 QTc 375 - EKG Results: EKG: interpreted by ERMD Medical Decision Making - Medical Decision Making 84 male with SVT, given adenosine by EMS A-fib here in the ER atrial fibrillation with RVR will admit for cardiology evaluation - Lab Data Result diagrams: 07/31/24 05:51 08/03/24 08:10 Lab Results 07/29/24 07/29/24 07/29/24 Range/Units 23:55 23:55 23:55 WBC 7.4 (3.8-10.6) k/uL RBC 3.81 L (4.30-5.90) m/uL Hgb 12.7 L (13.0-17.5) gm/dL Hct 37.2 L (39.0-53.0) % MCV 97.5 (80.0-100.0) fL MCH 33.3 (25.0-35.0) pg MCHC 34.2 (31.0-37.0) g/dL RDW 13.1 (11.5-15.5) % Plt Count 213 (150-450) k/uL MPV 8.7 Neutrophils % 68 % Lymphocytes % 18 % Monocytes % 9 % Eosinophils % 5 % Basophils % 0 % Neutrophils # 5.0 (1.3-7.7) k/uL Lymphocytes # 1.3 (1.0-4.8) k/uL Monocytes # 0.6 (0-1.0) k/uL Eosinophils # 0.3 (0-0.7) k/uL Basophils # 0.0 (0-0.2) k/uL Hypochromasia PT 11.4 (10.0-12.5) sec INR 1.1 (<1.2) APTT 35.5 H (22.0-30.0) sec Sodium 140 (137-145) mmol/L Potassium 3.5 (3.5-5.1) mmol/L Chloride 102 (98-107) mmol/L Carbon Dioxide 32 H (22-30) mmol/L Anion Gap 6 mmol/L BUN 24 H (9-20) mg/dL Creatinine 1.08 (0.66-1.25) mg/dL Est GFR (CKD-EPI)AfAm 72 (>60 ml/min/1.73 sqM) Est GFR (CKD-EPI)NonAf 63 (>60 ml/min/1.73 sqM) Glucose 124 H (74-99) mg/dL POC Glucose (mg/dL) (70-110) mg/dL POC Glu Crowning Hammer Operator ID Estimated Ave Glu mg/dL mg/dL Hemoglobin A1c (<=6.0) % Plasma Lactic Acid Bryn (0.7-2.0) mmol/L Calcium 8.9 (8.4-10.2) mg/dL Phosphorus 3.3 (2.5-4.5) mg/dL Magnesium 2.1 (1.6-2.3) mg/dL Total Bilirubin 1.5 H (0.2-1.3) mg/dL AST 27 (17-59) U/L ALT 19 (4-49) U/L Alkaline Phosphatase 104 (38-126) U/L Troponin I (0.000-0.034) ng/mL NT-Pro-B Natriuret Pep 684 pg/mL Total Protein 5.8 L (6.3-8.2) g/dL Albumin 3.6 (3.5-5.0) g/dL Triglycerides (0.00-149.00) mg/dL Cholesterol (0.00-200.00) mg/dL LDL Cholesterol, Calc (0.0-131.0) mg/dL VLDL Cholesterol, Calc (5.00-40.00) mg/dL HDL Cholesterol (40.00-60.00) mg/dL Cholesterol/HDL Ratio Ratio 07/29/24 07/29/24 07/30/24 Range/Units 23:55 23:55 04:21 WBC (3.8-10.6) k/uL RBC (4.30-5.90) m/uL Hgb (13.0-17.5) gm/dL Hct (39.0-53.0) % MCV (80.0-100.0) fL MCH (25.0-35.0) pg MCHC (31.0-37.0) g/dL RDW (11.5-15.5) % Plt Count (150-450) k/uL MPV Neutrophils % % Lymphocytes % % Monocytes % % Eosinophils % % Basophils % % Neutrophils # (1.3-7.7) k/uL Lymphocytes # (1.0-4.8) k/uL Monocytes # (0-1.0) k/uL Eosinophils # (0-0.7) k/uL Basophils # (0-0.2) k/uL Hypochromasia PT (10.0-12.5) sec INR (<1.2) APTT (22.0-30.0) sec Sodium (137-145) mmol/L Potassium (3.5-5.1) mmol/L Chloride (98-107) mmol/L Carbon Dioxide (22-30) mmol/L Anion Gap mmol/L BUN (9-20) mg/dL Creatinine (0.66-1.25) mg/dL Est GFR (CKD-EPI)AfAm (>60 ml/min/1.73 sqM) Est GFR (CKD-EPI)NonAf (>60 ml/min/1.73 sqM) Glucose (74-99) mg/dL POC Glucose (mg/dL) (70-110) mg/dL POC Glu Crowning Hammer Operator ID Estimated Ave Glu mg/dL mg/dL Hemoglobin A1c (<=6.0) % Plasma Lactic Acid Bryn 1.8 (0.7-2.0) mmol/L Calcium (8.4-10.2) mg/dL Phosphorus (2.5-4.5) mg/dL Magnesium (1.6-2.3) mg/dL Total Bilirubin (0.2-1.3) mg/dL AST (17-59) U/L ALT (4-49) U/L Alkaline Phosphatase (38-126) U/L Troponin I <0.012 0.092 H* (0.000-0.034) ng/mL NT-Pro-B Natriuret Pep pg/mL Total Protein (6.3-8.2) g/dL Albumin (3.5-5.0) g/dL Triglycerides (0.00-149.00) mg/dL Cholesterol (0.00-200.00) mg/dL LDL Cholesterol, Calc (0.0-131.0) mg/dL VLDL Cholesterol, Calc (5.00-40.00) mg/dL HDL Cholesterol (40.00-60.00) mg/dL Cholesterol/HDL Ratio Ratio 07/30/24 07/30/24 07/30/24 Range/Units 06:00 07:27 07:27 WBC (3.8-10.6) k/uL RBC (4.30-5.90) m/uL Hgb (13.0-17.5) gm/dL Hct (39.0-53.0) % MCV (80.0-100.0) fL MCH (25.0-35.0) pg MCHC (31.0-37.0) g/dL RDW (11.5-15.5) % Plt Count (150-450) k/uL MPV Neutrophils % % Lymphocytes % % Monocytes % % Eosinophils % % Basophils % % Neutrophils # (1.3-7.7) k/uL Lymphocytes # (1.0-4.8) k/uL Monocytes # (0-1.0) k/uL Eosinophils # (0-0.7) k/uL Basophils # (0-0.2) k/uL Hypochromasia PT (10.0-12.5) sec INR (<1.2) APTT (22.0-30.0) sec Sodium (137-145) mmol/L Potassium (3.5-5.1) mmol/L Chloride (98-107) mmol/L Carbon Dioxide (22-30) mmol/L Anion Gap mmol/L BUN (9-20) mg/dL Creatinine (0.66-1.25) mg/dL Est GFR (CKD-EPI)AfAm (>60 ml/min/1.73 sqM) Est GFR (CKD-EPI)NonAf (>60 ml/min/1.73 sqM) Glucose (74-99) mg/dL POC Glucose (mg/dL) (70-110) mg/dL POC Glu Crowning Hammer Operator ID Estimated Ave Glu mg/dL 128 mg/dL Hemoglobin A1c 6.1 H (<=6.0) % Plasma Lactic Acid Bryn (0.7-2.0) mmol/L Calcium (8.4-10.2) mg/dL Phosphorus (2.5-4.5) mg/dL Magnesium (1.6-2.3) mg/dL Total Bilirubin (0.2-1.3) mg/dL AST (17-59) U/L ALT (4-49) U/L Alkaline Phosphatase (38-126) U/L Troponin I 0.177 H* (0.000-0.034) ng/mL NT-Pro-B Natriuret Pep 1406 H pg/mL Total Protein (6.3-8.2) g/dL Albumin (3.5-5.0) g/dL Triglycerides 116.00 (0.00-149.00) mg/dL Cholesterol 136.00 (0.00-200.00) mg/dL LDL Cholesterol, Calc 68.2 (0.0-131.0) mg/dL VLDL Cholesterol, Calc 23.20 (5.00-40.00) mg/dL HDL Cholesterol 44.60 (40.00-60.00) mg/dL Cholesterol/HDL Ratio 3.05 Ratio 07/30/24 07/31/24 07/31/24 Range/Units 20:29 05:51 05:51 WBC 7.2 (3.8-10.6) k/uL RBC 3.58 L (4.30-5.90) m/uL Hgb 11.8 L (13.0-17.5) gm/dL Hct 35.7 L (39.0-53.0) % MCV 99.8 (80.0-100.0) fL MCH 32.9 (25.0-35.0) pg MCHC 32.9 (31.0-37.0) g/dL RDW 13.0 (11.5-15.5) % Plt Count 214 (150-450) k/uL MPV 8.7 Neutrophils % 70 % Lymphocytes % 16 % Monocytes % 8 % Eosinophils % 5 % Basophils % 0 % Neutrophils # 5.0 (1.3-7.7) k/uL Lymphocytes # 1.2 (1.0-4.8) k/uL Monocytes # 0.6 (0-1.0) k/uL Eosinophils # 0.3 (0-0.7) k/uL Basophils # 0.0 (0-0.2) k/uL Hypochromasia Slight PT (10.0-12.5) sec INR (<1.2) APTT (22.0-30.0) sec Sodium 140 (137-145) mmol/L Potassium 3.8 (3.5-5.1) mmol/L Chloride 104 (98-107) mmol/L Carbon Dioxide 35 H (22-30) mmol/L Anion Gap 1 mmol/L BUN 17 (9-20) mg/dL Creatinine 1.16 (0.66-1.25) mg/dL Est GFR (CKD-EPI)AfAm 67 (>60 ml/min/1.73 sqM) Est GFR (CKD-EPI)NonAf 58 (>60 ml/min/1.73 sqM) Glucose 114 H (74-99) mg/dL POC Glucose (mg/dL) 142 H (70-110) mg/dL POC Glu Crowning Hammer Operator ID Gardenia Palmer [address] Glu mg/dL mg/dL Hemoglobin A1c (<=6.0) % Plasma Lactic Acid Bryn (0.7-2.0) mmol/L Calcium 8.7 (8.4-10.2) mg/dL Phosphorus 3.3 (2.5-4.5) mg/dL Magnesium 2.1 (1.6-2.3) mg/dL Total Bilirubin 1.6 H (0.2-1.3) mg/dL AST 20 (17-59) U/L ALT 16 (4-49) U/L Alkaline Phosphatase 76 (38-126) U/L Troponin I (0.000-0.034) ng/mL NT-Pro-B Natriuret Pep pg/mL Total Protein 5.2 L (6.3-8.2) g/dL Albumin 3.1 L (3.5-5.0) g/dL Triglycerides (0.00-149.00) mg/dL Cholesterol (0.00-200.00) mg/dL LDL Cholesterol, Calc (0.0-131.0) mg/dL VLDL Cholesterol, Calc (5.00-40.00) mg/dL HDL Cholesterol (40.00-60.00) mg/dL Cholesterol/HDL Ratio Ratio 07/31/24 07/31/24 07/31/24 Range/Units 06:00 11:14 16:14 WBC (3.8-10.6) k/uL RBC (4.30-5.90) m/uL Hgb (13.0-17.5) gm/dL Hct (39.0-53.0) % MCV (80.0-100.0) fL MCH (25.0-35.0) pg MCHC (31.0-37.0) g/dL RDW (11.5-15.5) % Plt Count (150-450) k/uL MPV Neutrophils % % Lymphocytes % % Monocytes % % Eosinophils % % Basophils % % Neutrophils # (1.3-7.7) k/uL Lymphocytes # (1.0-4.8) k/uL Monocytes # (0-1.0) k/uL Eosinophils # (0-0.7) k/uL Basophils # (0-0.2) k/uL Hypochromasia PT (10.0-12.5) sec INR (<1.2) APTT (22.0-30.0) sec Sodium (137-145) mmol/L Potassium (3.5-5.1) mmol/L Chloride (98-107) mmol/L Carbon Dioxide (22-30) mmol/L Anion Gap mmol/L BUN (9-20) mg/dL Creatinine (0.66-1.25) mg/dL Est GFR (CKD-EPI)AfAm (>60 ml/min/1.73 sqM) Est GFR (CKD-EPI)NonAf (>60 ml/min/1.73 sqM) Glucose (74-99) mg/dL POC Glucose (mg/dL) 118 H 140 H 122 H (70-110) mg/dL POC Glu Crowning Hammer Operator ID Estela, [place] Sheriff, Caroline Sheriff, Caroline [address]imated [address] Glu mg/dL mg/dL Hemoglobin A1c (<=6.0) % Plasma Lactic Acid Bryn (0.7-2.0) mmol/L Calcium (8.4-10.2) mg/dL Phosphorus (2.5-4.5) mg/dL Magnesium (1.6-2.3) mg/dL Total Bilirubin (0.2-1.3) mg/dL AST (17-59) U/L ALT (4-49) U/L Alkaline Phosphatase (38-126) U/L Troponin I (0.000-0.034) ng/mL NT-Pro-B Natriuret Pep pg/mL Total Protein (6.3-8.2) g/dL Albumin (3.5-5.0) g/dL Triglycerides (0.00-149.00) mg/dL Cholesterol (0.00-200.00) mg/dL LDL Cholesterol, Calc (0.0-131.0) mg/dL VLDL Cholesterol, Calc (5.00-40.00) mg/dL HDL Cholesterol (40.00-60.00) mg/dL Cholesterol/HDL Ratio Ratio 07/31/24 08/01/24 Range/Units 20:16 06:06 WBC (3.8-10.6) k/uL RBC (4.30-5.90) m/uL Hgb (13.0-17.5) gm/dL Hct (39.0-53.0) % MCV (80.0-100.0) fL MCH (25.0-35.0) pg MCHC (31.0-37.0) g/dL RDW (11.5-15.5) % Plt Count (150-450) k/uL MPV Neutrophils % % Lymphocytes % % Monocytes % % Eosinophils % % Basophils % % Neutrophils # (1.3-7.7) k/uL Lymphocytes # (1.0-4.8) k/uL Monocytes # (0-1.0) k/uL Eosinophils # (0-0.7) k/uL Basophils # (0-0.2) k/uL Hypochromasia PT (10.0-12.5) sec INR (<1.2) APTT (22.0-30.0) sec Sodium (137-145) mmol/L Potassium (3.5-5.1) mmol/L Chloride (98-107) mmol/L Carbon Dioxide (22-30) mmol/L Anion Gap mmol/L BUN (9-20) mg/dL Creatinine (0.66-1.25) mg/dL Est GFR (CKD-EPI)AfAm (>60 ml/min/1.73 sqM) Est GFR (CKD-EPI)NonAf (>60 ml/min/1.73 sqM) Glucose (74-99) mg/dL POC Glucose (mg/dL) 134 H 115 H (70-110) mg/dL POC Glu Crowning Hammer Operator ID Moon, Piper Moon, Piper [address] Glu mg/dL mg/dL Hemoglobin A1c (<=6.0) % Plasma Lactic Acid Bryn (0.7-2.0) mmol/L Calcium (8.4-10.2) mg/dL Phosphorus (2.5-4.5) mg/dL Magnesium (1.6-2.3) mg/dL Total Bilirubin (0.2-1.3) mg/dL AST (17-59) U/L ALT (4-49) U/L Alkaline Phosphatase (38-126) U/L Troponin I (0.000-0.034) ng/mL NT-Pro-B Natriuret Pep pg/mL Total Protein (6.3-8.2) g/dL Albumin (3.5-5.0) g/dL Triglycerides (0.00-149.00) mg/dL Cholesterol (0.00-200.00) mg/dL LDL Cholesterol, Calc (0.0-131.0) mg/dL VLDL Cholesterol, Calc (5.00-40.00) mg/dL HDL Cholesterol (40.00-60.00) mg/dL Cholesterol/HDL Ratio Ratio - EKG Data -: EKG Interpreted by Me - Radiology Data Radiology results: report reviewed (Chest x-ray is negative for acute disease), image reviewed Critical Care Time Critical Care Time: Yes Total Critical Care Time: 31 Disposition Clinical Impression: Atrial fibrillation with RVR, Tachycardia, Palpitations, SVT (supraventricular tachycardia) Disposition: ADMITTED IP TO THIS HOSP Condition: Fair Is patient prescribed a controlled substance at d/c from ED?: No Time of Disposition: 02:00
[2024-07-29] MEDS: SODIUM CHLORIDE 0.9% 1,000 ML IV STA (23:58)
[2024-07-30 00:07] LABS: Basophils % (A) 0 %; Eosinophils # (A) 0.3 k/uL (0-0.7); Eosinophils % (A) 5 %; HCT 37.2 % (39.0-53.0); HGB 12.7 gm/dL (13.0-17.5); Lymphocytes # (A) 1.3 k/uL (1.0-4.8); Lymphocytes % (A) 18 %; MCH 33.3 pg (25.0-35.0); MCHC 34.2 g/dL (31.0-37.0); MCV 97.5 fL (80.0-100.0); Mean Platelet Volume 8.7; Monocytes # (A) 0.6 k/uL (0-1.0); Monocytes % (A) 9 %; Neutrophils % (A) 68 %; Platelet Count 213 k/uL (150-450); RBC 3.81 m/uL (4.30-5.90); RDW 13.1 % (11.5-15.5); WBC 7.4 k/uL (3.8-10.6)
[2024-07-30 00:16] LABS: INR 1.1 (<1.2); Partial Thromboplastin Time 35.5 sec (22.0-30.0); Prothrombin Time 11.4 sec (10.0-12.5)
[2024-07-30 00:19] LABS: ALT 19 U/L (4-49); AST 27 U/L (17-59); African American GFR (CKD) 72 (>60 ml/min/1.73 sqM); Albumin 3.6 g/dL (3.5-5.0); Alkaline Phosphatase 104 U/L (38-126); Anion Gap 6 mmol/L; Blood Urea Nitrogen 24 mg/dL (9-20); Calcium 8.9 mg/dL (8.4-10.2); Carbon Dioxide 32 mmol/L (22-30); Chloride 102 mmol/L (98-107); Glucose 124 mg/dL (74-99); Magnesium 2.1 mg/dL (1.6-2.3); Non-African American GFR(CKD) 63 (>60 ml/min/1.73 sqM); Phosphorus 3.3 mg/dL (2.5-4.5); Potassium 3.5 mmol/L (3.5-5.1); Sodium 140 mmol/L (137-145); Total Bilirubin 1.5 mg/dL (0.2-1.3); Total Protein 5.8 g/dL (6.3-8.2)
[2024-07-30 00:28] LABS: NT-Pro-B-Type Natriuretic Pept 684 pg/mL
[2024-07-30] MEDS: DILTIAZEM DRIP BOLUS FROM BAG 1 MG SOLN IV ONE (01:02)
[2024-07-30] MEDS: DILTIAZEM 125 MG in SODIUM CHLORIDE 0.9% 100 ML IV SCH (01:03)
[2024-07-30] MEDS ORDERED: NALOXONE 0.4 MG/ML 1 ML VIAL IV PRN (02:17)
[2024-07-30] MEDS ORDERED: MORPHINE SULFATE 4 MG/ML SYRINGE IV PRN (02:17)
--- NOTE | 2024-07-30 03:05 | XR ---
EXAM: XR Chest, 1 View CLINICAL HISTORY: ITS.REASON XR Reason: sob TECHNIQUE: Frontal view of the chest. COMPARISON: No relevant prior studies available. FINDINGS: Lungs: Unremarkable. No consolidation. Pleural space: Unremarkable. No pneumothorax. Heart: Cardiomegaly. Mediastinum: Unremarkable. Normal mediastinal contour. Bones/joints: Sternotomy wires. No acute fracture. IMPRESSION: No acute findings in the chest.
[2024-07-30] MEDS ORDERED: HEPARIN SODIUM 1,000 UN/ML (10ML VL) IV PRN (10:14)
[2024-07-30] MEDS ORDERED: DILTIAZEM ORAL 60 MG TAB PO PRN (10:28)
--- NOTE | 2024-07-30 10:46 | P.CRDCN ---
History of Present Illness Consult date: 07/30/24 History of present illness: HISTORY OF PRESENTING ILLNESS Patient is a 84-year-old male with past medical history of coronary ypass twice. He also has history of paroxysmal atrial fibrillation known to Dr. Velasquez. In January she had a cardioversion done and he has been dealing with tachybradycardia syndrome lately. Lately he was more on bradycardic side therefore his amiodarone and AV jonathan blockers were discontinued. This time he presented to the hospital because of symptoms of substernal chest pressure and palpitations along with concerns of fast heartbeat. Patient reports that he is always symptomatic from his atrial fibrillation and knows when he goes into it. On admission he was noticed to be in A-fib RVR. He was started on Cardizem drip and since then he has converted back to sinus bradycardia with heart rate in high 50s. Patient does have a tendency of flipping back into atrial fibrillation with minimal exertion. REVIEW OF SYSTEMS 14 point review of system is negative except what is mentioned above in HPI. PHYSICAL EXAMINATION Vital signs reviewed. Head: Normocephalic. Eyes: Sclerae nonicteric. Neck: Brisk carotid upstroke, no jugular venous distention. Lungs: Clear to auscultation. No significant wheezing or rhonchi Heart: Regular rate and rhythm, S1-S2, no S3, mild systolic murmur audible Abdomen: Soft nontender, positive bowel sounds. Extremities: No edema, intact distal pulses. Neuro: Alert, oritented, no focal deficits. Detailed neuro exam was not performed. ASSESSMENT Atrial fibrillation with RVR, symptomatic on admission. Currently sinus bradycardia Concerns of tachybradycardia syndrome. Patient has tendency of flipping back into atrial fibrillation with minimal exertion, concerns of cardiac deconditioning CAD with residual disease not amenable for intervention. Prior history of CABG times twice Dyslipidemia Chronic anemia hemoglobin 12, stable no concerns of bleeding PLAN I will initiate low-dose amiodarone 100 mg daily to maintain sinus rhythm. I will initiate low-dose beta-neelima, metoprolol succinate 12.5 mg daily. I would recommend Cardizem 60 mg to be used only as needed 4 times a day if patient has symptoms of palpitations and fast heartbeat Obtain echocardiogram Start Jardiance 10 mg daily, reduce Lasix to 20 mg daily Reduce Imdur to 30 mg daily due to low normal blood pressure Start aspirin 81 mg, Lipitor 40 mg, Eliquis 5 mg twice daily Monitor patient on telemetry for next 24 to 48 hours. Consider discharging patient on 7 days of extended Holter monitor to look for heart rate trends. If patient continues to demonstrate tachybradycardia syndrome and is not able to maintain a good quality of life because of being limited in physical activity, consider pacemaker evaluation Recommend outpatient cardiac rehabilitation Daniel Kang MD, FACC, RPVI Thank you for allowing [facility] to participate in this patient's care. Feel free to reach out in case of any followup questions. Past Medical History Past Medical History: Atrial Fibrillation, Atrial Flutter, Coronary Artery Disease (CAD), Cancer, Chest Pain / Angina, Heart Failure, Diabetes Mellitus, Hyperlipidemia, Hypertension, Myocardial Infarction ([place]) Additional Past Medical History / Comment(s): skin cancer Last Myocardial Infarction Date:: unk History of Any Multi-Drug Resistant Organisms: None Reported Past Surgical History: Adenoidectomy, Cholecystectomy, Coronary Bypass/CABG Additional Past Surgical History / Comment(s): CABG x2 last surgery in 1981, hemorrhoidectomy Past Anesthesia/Blood Transfusion Reactions: No Reported Reaction Past Psychological History: No Psychological Hx Reported Smoking Status: Former smoker Past Alcohol Use History: None Reported Past Drug Use History: None Reported - Past Family History Father Family Medical History: Myocardial Infarction ([place]) Mother Family Medical History: CVA/TIA Medications and Allergies Home Medications Medication Instructions Recorded Confirmed Type Doxazosin [Cardura] 2 mg PO HS 11/28/18 01/19/24 History Repaglinide 0.5 mg PO BID 11/28/18 01/19/24 History Apixaban [Eliquis] 5 mg PO BID #60 tab 12/04/18 01/19/24 Rx Atorvastatin [Lipitor] 40 mg PO DAILY #30 tab 12/04/18 01/19/24 Rx Isosorbide Mononitrate ER [Imdur] 60 mg PO DAILY #30 tab.er.24h 12/04/18 01/19/24 Rx Furosemide [Lasix] 20 mg PO BID 11/18/22 01/19/24 History Vit C/E/Zn/Coppr/Lutein/Zeaxan 1 cap PO BID 07/05/23 01/19/24 History [Preservision Areds 2 Softgel] Amiodarone [Cordarone] 200 mg PO BID 30 Days #60 tab 07/07/23 01/19/24 Rx Metoprolol Tartrate [Lopressor] 25 mg PO BID 30 Days #60 tab 07/07/23 01/19/24 Rx Aspirin [Adult Low Dose Aspirin EC] 81 mg PO DAILY 01/19/24 01/19/24 History Allergies Allergy/AdvReac Type Severity Reaction Status Date / Time No Known Allergies Allergy Verified 07/29/24 23:48 Physical Exam Vitals: Vital Signs Temp Pulse Resp BP Pulse Ox 07/30/24 10:03 55 L 16 126/60 99 07/30/24 09:57 51 L 18 123/61 99 07/30/24 08:54 18 07/30/24 08:10 114 H 18 114/96 98 07/30/24 06:00 84 16 112/72 97 07/30/24 04:00 75 18 121/98 97 07/30/24 01:08 73 16 146/67 93 L 07/30/24 00:53 106 H 18 129/81 94 L 07/29/24 23:35 98.0 F 98 18 145/72 95 Intake and Output 07/29/24 07/30/24 07/30/24 22:59 06:59 14:59 Other: Weight 81.647 kg Results 07/29/24 23:55 07/29/24 23:55 Cardiac Enzymes 07/29/24 07/29/24 07/30/24 Range/Units 23:55 23:55 04:21 AST 27 (17-59) U/L Troponin I <0.012 0.092 H* (0.000-0.034) ng/mL 07/30/24 Range/Units 07:27 AST (17-59) U/L Troponin I 0.177 H* (0.000-0.034) ng/mL Coagulation 07/29/24 Range/Units 23:55 PT 11.4 (10.0-12.5) sec APTT 35.5 H (22.0-30.0) sec CBC 07/29/24 Range/Units 23:55 WBC 7.4 (3.8-10.6) k/uL RBC 3.81 L (4.30-5.90) m/uL Hgb 12.7 L (13.0-17.5) gm/dL Hct 37.2 L (39.0-53.0) % Plt Count 213 (150-450) k/uL Comprehensive Metabolic Panel 07/29/24 Range/Units 23:55 Sodium 140 (137-145) mmol/L Potassium 3.5 (3.5-5.1) mmol/L Chloride 102 (98-107) mmol/L Carbon Dioxide 32 H (22-30) mmol/L BUN 24 H (9-20) mg/dL Creatinine 1.08 (0.66-1.25) mg/dL Glucose 124 H (74-99) mg/dL Calcium 8.9 (8.4-10.2) mg/dL AST 27 (17-59) U/L ALT 19 (4-49) U/L Alkaline Phosphatase 104 (38-126) U/L Total Protein 5.8 L (6.3-8.2) g/dL Albumin 3.6 (3.5-5.0) g/dL Current Medications Generic Name Dose Route Start Last Admin Trade Name Fre PRN Reason Stop Dose Admin Amiodarone HCl 100 mg 07/30/24 10:45 Amiodarone 100 Mg Tab PO DAILY [facility] Apixaban 5 mg 07/30/24 10:30 Apixaban 5 Mg Tab PO BID [facility] Protocol Aspirin 81 mg 07/30/24 10:45 Aspirin 81 Mg PO DAILY [facility] Atorvastatin Calcium 20 mg 07/30/24 10:30 Atorvastatin 20 Mg Tab PO DAILY [facility] Dapagliflozin 10 mg 07/30/24 10:45 Dapagliflozin Propanediol 10 Mg Tablet PO DAILY [facility] Diltiazem HCl 60 mg 07/30/24 10:28 Diltiazem Oral 60 Mg Tab PO QID PRN for palpitations Furosemide 20 mg 07/30/24 10:45 Furosemide 20 Mg Tab PO DAILY [facility] Isosorbide Mononitrate 30 mg 07/30/24 10:45 Isosorbide Mononitrate Er 30 Mg Tab.Er.24h PO DAILY [facility] Metoprolol Succinate 12.5 mg 07/30/24 10:45 Metoprolol Succinate (Er) 25 Mg Tab.Er.24h PO DAILY [facility] Morphine Sulfate 4 mg 07/30/24 02:17 Morphine Sulfate 4 Mg/Ml Syringe IV Q4HR PRN Severe Pain (Scale 7 to 10) Naloxone HCl 0.2 mg 07/30/24 02:17 Naloxone 0.4 Mg/Ml 1 Ml Vial IV Q2M PRN Opioid Reversal Ondansetron HCl 4 mg 07/30/24 02:17 Ondansetron 4 Mg/2 Ml Vial IVP Q8HR PRN Nausea And Vomiting Intake and Output 07/29/24 07/30/24 07/30/24 22:59 06:59 14:59 Other: Weight 81.647 kg 07/29/24 23:55 07/29/24 23:55
[2024-07-30] MEDS: APIXABAN 5 MG TAB PO SCH (10:54)
[2024-07-30] MEDS: METOPROLOL SUCCINATE (ER) 25 MG TAB.ER.24H PO SCH (10:54)
[2024-07-30] MEDS: DAPAGLIFLOZIN PROPANEDIOL 10 MG TABLET PO SCH (10:55)
[2024-07-30] MEDS: FUROSEMIDE 20 MG TAB PO SCH (10:56)
[2024-07-30] MEDS: ATORVASTATIN 20 MG TAB PO SCH (10:56)
[2024-07-30] MEDS: ASPIRIN 81 MG PO SCH (10:56)
[2024-07-30] MEDS: ISOSORBIDE MONONITRATE ER 30 MG TAB.ER.24H PO SCH (10:56)
[2024-07-30] MEDS: AMIODARONE 200 MG TAB PO SCH (11:28)
[2024-07-30] MEDS: HEPARIN SOD,PORK IN 0.45% NACL 25,000 UNIT in 0.45% NACL 1 250ML.BAG IV SCH (11:28)
[2024-07-30] MEDS: AMIODARONE 100 MG TAB PO SCH (11:35)
--- NOTE | 2024-07-30 14:00 | P.HPIM ---
History of Present Illness H&P Date: 07/30/24 History of present illness; patient 84-year-old gentleman with past medical history significant for atrial fibrillation, hyperlipidemia who presents the ER because of palpitations. Patient stated that he was all right when yesterday evening he started complaining of palpitations.Patient has history of A-fib and his heart rate was elevated. Patient was complaining of lightheadedness at the time. There was no complaint of chest pain. There was no complaint of shortness of breath at the time. Denied any nausea, vomiting or abdominal pain at the time. EMS was called and patient was given adenosine en route to the ER. Initial lab work done in the ER showed WBC 7.4, hemoglobin 12.7, platelet count 213, sodium 140, potassium 3.5, BUN 24, creatinine 1.08, glucose 124, magnesium 2.1, bilirubin 1.5, troponin 0.012 EKG done in the ER showed heart rate of 87, irregular in rhythm, no ST segment elevation, T wave inversion seen in lead III and aVF. Chest x-ray done in the ER showed no acute findings in the chest Patient admitted to internal medicine service REVIEW OF SYSTEMS: CONSTITUTIONAL: No fever, no malaise, no fatigue. HEENT: No recent visual problems or hearing problems. Denied any sore throat. CARDIOVASCULAR: As mentioned above PULMONARY: As mentioned above GASTROINTESTINAL: No diarrhea, no nausea, no vomiting, no abdominal pain. NEUROLOGICAL: No headaches, no weakness, no numbness. HEMATOLOGICAL: Denies any bleeding or petechiae. GENITOURINARY: Denies any burning micturition, frequency, or urgency. MUSCULOSKELETAL/RHEUMATOLOGICAL: Denies any joint pain, swelling, or any muscle pain. ENDOCRINE: Denies any polyuria or polydipsia. The rest of the 14-point review of systems is negative. PHYSICAL EXAMINATION: GENERAL: The patient is alert and oriented x3, not in any acute distress. Well developed, well nourished. HEENT: Pupils are round and equally reacting to light. EOMI. No scleral icterus. No conjunctival pallor. Normocephalic, atraumatic. No pharyngeal erythema. No thyromegaly. CARDIOVASCULAR: S1 and S2 present. No murmurs, rubs, or gallops. PULMONARY: Chest is clear to auscultation, no wheezing or crackles. ABDOMEN: Soft, nontender, nondistended, normoactive bowel sounds. No palpable organomegaly. MUSCULOSKELETAL: No joint swelling or deformity. EXTREMITIES: No cyanosis, clubbing, or pedal edema. NEUROLOGICAL: Gross neurological examination did not reveal any focal deficits. SKIN: No rashes. Assessment and plan A-fib with RVR NSTEMI Hyperlipidemia Monitor vital signs Monitor CBC Monitor CMP Continue telemetry monitoring Trend troponin Ordered 2D echo Resume Eliquis Continue Cardizem drip Consult cardiology Labs and medication were reviewed.. Continue same treatment. Continue with symptomatic treatment. Resume home medication. Monitor labs and vitals. DVT and GI prophylaxis. Further recommendations as per clinical course of the patient Dictation was produced using [employer] dictation software. please excuse any gramm atical, word or spelling errors. Past Medical History Past Medical History: Atrial Fibrillation, Atrial Flutter, Coronary Artery Disease (CAD), Cancer, Chest Pain / Angina, Heart Failure, Diabetes Mellitus, Hyperlipidemia, Hypertension, Myocardial Infarction ([place]) Additional Past Medical History / Comment(s): skin cancer Last Myocardial Infarction Date:: unk History of Any Multi-Drug Resistant Organisms: None Reported Past Surgical History: Adenoidectomy, Cholecystectomy, Coronary Bypass/CABG Additional Past Surgical History / Comment(s): CABG x2 last surgery in 1981, hemorrhoidectomy Past Anesthesia/Blood Transfusion Reactions: No Reported Reaction Past Psychological History: No Psychological Hx Reported Smoking Status: Former smoker Past Alcohol Use History: None Reported Past Drug Use History: None Reported - Past Family History Father Family Medical History: Myocardial Infarction ([place]) Mother Family Medical History: CVA/TIA Medications and Allergies Home Medications Medication Instructions Recorded Confirmed Type Doxazosin [Cardura] 4 mg PO DAILY 11/28/18 07/30/24 History Repaglinide 0.5 mg PO BID 11/28/18 07/30/24 History Apixaban [Eliquis] 5 mg PO BID #60 tab 12/04/18 07/30/24 Rx Atorvastatin [Lipitor] 40 mg PO DAILY #30 tab 12/04/18 07/30/24 Rx Isosorbide Mononitrate ER [Imdur] 60 mg PO DAILY #30 tab.er.24h 12/04/18 07/30/24 Rx Furosemide [Lasix] 20 mg PO BID 11/18/22 07/30/24 History Vit C/E/Zn/Coppr/Lutein/Zeaxan 1 cap PO BID 07/05/23 07/30/24 History [Preservision Areds 2 Softgel] Losartan [Cozaar] 100 mg PO HS 07/30/24 07/30/24 History Allergies Allergy/AdvReac Type Severity Reaction Status Date / Time No Known Allergies Allergy Verified 07/30/24 11:34 Physical Exam Vitals: Vital Signs Temp Pulse Resp BP Pulse Ox 07/30/24 10:03 55 L 16 126/60 99 07/30/24 09:57 51 L 18 123/61 99 07/30/24 08:54 18 07/30/24 08:10 114 H 18 114/96 98 07/30/24 06:00 84 16 112/72 97 07/30/24 04:00 75 18 121/98 97 07/30/24 01:08 73 16 146/67 93 L 07/30/24 00:53 106 H 18 129/81 94 L 07/29/24 23:35 98.0 F 98 18 145/72 95 Intake and Output 07/29/24 07/30/24 07/30/24 22:59 06:59 14:59 Other: Weight 81.647 kg Results CBC & Chem 7: 07/29/24 23:55 07/29/24 23:55 Labs: Abnormal Lab Results - Last 24 Hours (Table) 07/29/24 07/29/24 07/29/24 Range/Units 23:55 23:55 23:55 RBC 3.81 L (4.30-5.90) m/uL Hgb 12.7 L (13.0-17.5) gm/dL Hct 37.2 L (39.0-53.0) % APTT 35.5 H (22.0-30.0) sec Carbon Dioxide 32 H (22-30) mmol/L BUN 24 H (9-20) mg/dL Glucose 124 H (74-99) mg/dL Total Bilirubin 1.5 H (0.2-1.3) mg/dL Troponin I (0.000-0.034) ng/mL Total Protein 5.8 L (6.3-8.2) g/dL 07/30/24 07/30/24 Range/Units 04:21 07:27 RBC (4.30-5.90) m/uL Hgb (13.0-17.5) gm/dL Hct (39.0-53.0) % APTT (22.0-30.0) sec Carbon Dioxide (22-30) mmol/L BUN (9-20) mg/dL Glucose (74-99) mg/dL Total Bilirubin (0.2-1.3) mg/dL Troponin I 0.092 H* 0.177 H* (0.000-0.034) ng/mL Total Protein (6.3-8.2) g/dL
[2024-07-30 20:43] LABS: Glucose,Whole Blood 142 mg/dL (70-110)
[2024-07-31 06:13] LABS: Glucose,Whole Blood 118 mg/dL (70-110)
[2024-07-31 06:17] LABS: Basophils % (A) 0 %; Eosinophils # (A) 0.3 k/uL (0-0.7); Eosinophils % (A) 5 %; HCT 35.7 % (39.0-53.0); HGB 11.8 gm/dL (13.0-17.5); Hypochromasia Slight; Lymphocytes # (A) 1.2 k/uL (1.0-4.8); Lymphocytes % (A) 16 %; MCH 32.9 pg (25.0-35.0); MCHC 32.9 g/dL (31.0-37.0); MCV 99.8 fL (80.0-100.0); Mean Platelet Volume 8.7; Monocytes # (A) 0.6 k/uL (0-1.0); Monocytes % (A) 8 %; Neutrophils % (A) 70 %; Platelet Count 214 k/uL (150-450); RBC 3.58 m/uL (4.30-5.90); WBC 7.2 k/uL (3.8-10.6)
[2024-07-31 06:35] LABS: Albumin 3.1 g/dL (3.5-5.0); Anion Gap 1 mmol/L; Carbon Dioxide 35 mmol/L (22-30); Chloride 104 mmol/L (98-107); Glucose 114 mg/dL (74-99); Phosphorus 3.3 mg/dL (2.5-4.5); Potassium 3.8 mmol/L (3.5-5.1); Sodium 140 mmol/L (137-145); Total Protein 5.2 g/dL (6.3-8.2)
[2024-07-31 06:37] LABS: ALT 16 U/L (4-49); AST 20 U/L (17-59); African American GFR (CKD) 67 (>60 ml/min/1.73 sqM); Alkaline Phosphatase 76 U/L (38-126); Blood Urea Nitrogen 17 mg/dL (9-20); Calcium 8.7 mg/dL (8.4-10.2); Magnesium 2.1 mg/dL (1.6-2.3); Non-African American GFR(CKD) 58 (>60 ml/min/1.73 sqM); Total Bilirubin 1.6 mg/dL (0.2-1.3)
[2024-07-31 08:48] LABS: Chol/HDL Ratio 3.05 Ratio; LDL Cholesterol,Calculated 68.2 mg/dL (0.0-131.0)
[2024-07-31 11:16] LABS: Glucose,Whole Blood 140 mg/dL (70-110)
[2024-07-31 11:18] LABS: NT-Pro-B-Type Natriuretic Pept 1406 pg/mL (0-450)
--- NOTE | 2024-07-31 12:57 | P.PN ---
Subjective Progress Note Date: 07/31/24 patient 84-year-old gentleman with past medical history significant for atrial fibrillation, hyperlipidemia who presents the ER because of palpitations. Patient stated that he was all right when yesterday evening he started complaining of palpitations.Patient has history of A-fib and his heart rate was elevated. Patient was complaining of lightheadedness at the time. There was no complaint of chest pain. There was no complaint of shortness of breath at the time. Denied any nausea, vomiting or abdominal pain at the time. EMS was called and patient was given adenosine en route to the ER. Initial lab work done in the ER showed WBC 7.4, hemoglobin 12.7, platelet count 213, sodium 140, potassium 3.5, BUN 24, creatinine 1.08, glucose 124, magnesium 2.1, bilirubin 1.5, troponin 0.012 EKG done in the ER showed heart rate of 87, irregular in rhythm, no ST segment elevation, T wave inversion seen in lead III and aVF. Chest x-ray done in the ER showed no acute findings in the chest Patient admitted to internal medicine service 07/31. Patient seen and examined. Heart rate is better controlled, vital signs are heart rate of 54, blood pressure 167 /52, respirations 16, currently on room air. WBC 7.2, hemoglobin 9.8, sodium 140, potassium 3.8, BUN 17, creatinine 1.16. REVIEW OF SYSTEMS: CONSTITUTIONAL: No fever, no malaise,. CARDIOVASCULAR: No chest pain, no palpitations, no syncope. PULMONARY: No shortness of breath, no cough, GASTROINTESTINAL: No diarrhea, no nausea, no vomiting, no abdominal pain. NEUROLOGICAL: No headaches, no weakness, PHYSICAL EXAMINATION: GENERAL: The patient is alert and oriented x3, not in any acute distress. Well developed, well nourished. HEENT: Pupils are round and equally reacting to light. EOMI. No scleral icterus. No conjunctival pallor. Normocephalic, atraumatic. No pharyngeal erythema. No thyromegaly. CARDIOVASCULAR: S1 and S2 present. No murmurs, rubs, or gallops. PULMONARY: Chest is clear to auscultation, no wheezing or crackles. ABDOMEN: Soft, nontender, nondistended, normoactive bowel sounds. No palpable organomegaly. MUSCULOSKELETAL: No joint swelling or deformity. EXTREMITIES: No cyanosis, clubbing, or pedal edema. NEUROLOGICAL: Gross neurological examination did not reveal any focal deficits. SKIN: No rashes. Assessment and plan A-fib with RVR NSTEMI Hyperlipidemia Monitor vital signs Monitor CBC Monitor CMP Continue telemetry monitoring Ordered 2D echo Continue Eliquis Continue metoprolol and amiodarone Continue aspirin, Lipitor, Cardiology following Labs and medication were reviewed.. Continue same treatment. Continue with symptomatic treatment. Resume home medication. Monitor labs and vitals. DVT and GI prophylaxis. Further recommendations as per clinical course of the patient Dictation was produced using [employer] dictation software. please excuse any grammatical, word or spelling errors. Objective - Vital Signs Vital signs: Vital Signs Temp 97.5 F L 07/30/24 20:05 Pulse 54 L 07/31/24 04:50 Resp 16 07/31/24 04:50 BP 167/52 07/31/24 04:50 Pulse Ox 95 07/31/24 08:05 FiO2 Intake & Output 07/30/24 07/31/24 07/31/24 18:59 06:59 18:59 Intake Total 236 Balance 236 Weight 83.8 kg Intake: Oral 236 Other: Voiding Method Toilet Urinal - Labs CBC & Chem 7: 07/31/24 05:51 07/31/24 05:51 Labs: Abnormal Lab Results - Last 24 Hours (Table) 07/30/24 07/30/24 07/30/24 Range/Units 06:00 07:27 20:29 RBC (4.30-5.90) m/uL Hgb (13.0-17.5) gm/dL Hct (39.0-53.0) % Carbon Dioxide (22-30) mmol/L Glucose (74-99) mg/dL POC Glucose (mg/dL) 142 H (70-110) mg/dL Hemoglobin A1c 6.1 H (<=6.0) % Total Bilirubin (0.2-1.3) mg/dL Troponin I 0.177 H* (0.000-0.034) ng/mL Total Protein (6.3-8.2) g/dL Albumin (3.5-5.0) g/dL 07/31/24 07/31/24 07/31/24 Range/Units 05:51 05:51 06:00 RBC 3.58 L (4.30-5.90) m/uL Hgb 11.8 L (13.0-17.5) gm/dL Hct 35.7 L (39.0-53.0) % Carbon Dioxide 35 H (22-30) mmol/L Glucose 114 H (74-99) mg/dL POC Glucose (mg/dL) 118 H (70-110) mg/dL Hemoglobin A1c (<=6.0) % Total Bilirubin 1.6 H (0.2-1.3) mg/dL Troponin I (0.000-0.034) ng/mL Total Protein 5.2 L (6.3-8.2) g/dL Albumin 3.1 L (3.5-5.0) g/dL
[2024-07-31] MEDS ORDERED: HEPARIN SODIUM 1,000 UN/ML (10ML VL) IV PRN (13:57)
[2024-07-31] MEDS ORDERED: HEPARIN SOD,PORK IN 0.45% NACL 25,000 UNIT in 0.45% NACL 1 250ML.BAG IV SCH (14:00)
[2024-07-31] MEDS: LOSARTAN 25 MG TAB PO SCH (15:24)
[2024-07-31 16:19] LABS: Glucose,Whole Blood 122 mg/dL (70-110)
--- NOTE | 2024-07-31 18:44 | P.PN ---
Subjective Progress Note Date: 07/31/24 HISTORY OF PRESENTING ILLNESS Patient is a 84-year-old male with past medical history of coronary ypass twice. He also has history of paroxysmal atrial fibrillation known to Dr. Velasquez. In January she had a cardioversion done and he has been dealing with tachybradycardia syndrome lately. Lately he was more on bradycardic side therefore his amiodarone and AV jonathan blockers were discontinued. This time he presented to the hospital because of symptoms of substernal chest pressure and palpitations along with concerns of fast heartbeat. Patient reports that he is always symptomatic from his atrial fibrillation and knows when he goes into it. On admission he was noticed to be in A-fib RVR. He was started on Cardizem drip and since then he has converted back to sinus bradycardia with heart rate in high 50s. Patient does have a tendency of flipping back into atrial fibrillation with minimal exertion. Progress Note July 31, 2024 Patient continues to be in sinus rhythm with intermittent PACs on telemetry. His heart rate has been in mid 50s. Because of concerns of low heart rate, patient did not receive his beta-neelima today. I would ambulate the patient to see if patient has any chronotropic competence or he has a tendency of flipping back into atrial fibrillation with minimal exe rtion. PHYSICAL EXAMINATION Vital signs reviewed. Head: Normocephalic. Eyes: Sclerae nonicteric. Neck: Brisk carotid upstroke, no jugular venous distention. Lungs: Clear to auscultation. No significant wheezing or rhonchi Heart: Regular rate and rhythm, S1-S2, no S3, mild systolic murmur audible Abdomen: Soft nontender, positive bowel sounds. Extremities: No edema, intact distal pulses. Neuro: Alert, oritented, no focal deficits. Detailed neuro exam was not performed. ASSESSMENT Atrial fibrillation with RVR, symptomatic on admission. Currently sinus bradycardia Concerns of tachybradycardia syndrome. 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 Prior history of CABG times twice Dyslipidemia Chronic anemia hemoglobin 12, stable no concerns of bleeding PLAN I will initiate low-dose amiodarone 100 mg daily to maintain sinus rhythm. I will initiate low-dose beta-neelima, metoprolol succinate 12.5 mg daily. I would recommend Cardizem 60 mg to be used only as needed 4 times a day if patient has symptoms of palpitations and fast heartbeat Obtain echocardiogram Start Jardiance 10 mg daily, reduce Lasix to 20 mg daily Reduce Imdur to 30 mg daily due to low normal blood pressure Start aspirin 81 mg, Lipitor 40 mg, Eliquis 5 mg twice daily Monitor patient on telemetry for next 24 to 48 hours. Consider discharging patient on 7 days of extended Holter monitor to look for heart rate trends. Patient does have elevated troponin on this admission which appears to be type I in nature. Patient does have residual CAD with moderate to severe CAD in LCx not amiable for intervention from recent catheterization. Would recommend discussing the case tomorrow with Dr. Velasquez to see if he would like to do a repeat heart catheterization on the patient. Meanwhile continue treating patient medically If patient continues to demonstrate tachybradycardia syndrome and is not able to maintain a good quality of life because of being limited in physical activity, consider pacemaker evaluation Objective - Vital Signs Vital signs: Vital Signs Temp 98.0 F 07/31/24 15:20 Pulse 50 L 07/31/24 15:20 Resp 16 07/31/24 15:20 BP 145/56 07/31/24 15:20 Pulse Ox 95 07/31/24 15:20 FiO2 Intake & Output 07/30/24 07/31/24 07/31/24 18:59 06:59 18:59 Intake Total 486 Balance 486 Weight 83.8 kg Intake: IV 10 Invasive Line 1 10 Oral 476 Other: Voiding Method Toilet Toilet Urinal Urinal # Voids 2 # Bowel Movements 1 - Labs CBC & Chem 7: 07/31/24 05:51 07/31/24 05:51 Labs: Abnormal Lab Results - Last 24 Hours (Table) 07/30/24 07/30/24 07/30/24 Range/Units 06:00 07:27 20:29 RBC (4.30-5.90) m/uL Hgb (13.0-17.5) gm/dL Hct (39.0-53.0) % Carbon Dioxide (22-30) mmol/L Glucose (74-99) mg/dL POC Glucose (mg/dL) 142 H (70-110) mg/dL Hemoglobin A1c 6.1 H (<=6.0) % Total Bilirubin (0.2-1.3) mg/dL NT-Pro-B Natriuret Pep 1406 H (0-450) pg/mL Total Protein (6.3-8.2) g/dL Albumin (3.5-5.0) g/dL 07/31/24 07/31/24 07/31/24 Range/Units 05:51 05:51 06:00 RBC 3.58 L (4.30-5.90) m/uL Hgb 11.8 L (13.0-17.5) gm/dL Hct 35.7 L (39.0-53.0) % Carbon Dioxide 35 H (22-30) mmol/L Glucose 114 H (74-99) mg/dL POC Glucose (mg/dL) 118 H (70-110) mg/dL Hemoglobin A1c (<=6.0) % Total Bilirubin 1.6 H (0.2-1.3) mg/dL NT-Pro-B Natriuret Pep (0-450) pg/mL Total Protein 5.2 L (6.3-8.2) g/dL Albumin 3.1 L (3.5-5.0) g/dL 07/31/24 07/31/24 Range/Units 11:14 16:14 RBC (4.30-5.90) m/uL Hgb (13.0-17.5) gm/dL Hct (39.0-53.0) % Carbon Dioxide (22-30) mmol/L Glucose (74-99) mg/dL POC Glucose (mg/dL) 140 H 122 H (70-110) mg/dL Hemoglobin A1c (<=6.0) % Total Bilirubin (0.2-1.3) mg/dL NT-Pro-B Natriuret Pep (0-450) pg/mL Total Protein (6.3-8.2) g/dL Albumin (3.5-5.0) g/dL
[2024-07-31 20:22] LABS: Glucose,Whole Blood 134 mg/dL (70-110)
[2024-07-31] MEDS: APIXABAN 5 MG TAB PO SCH (20:33)
[2024-08-01 06:10] LABS: Glucose,Whole Blood 115 mg/dL (70-110)
[2024-08-01] MEDS: LOSARTAN 25 MG TAB PO STA (08:05)
[2024-08-01] MEDS: ISOSORBIDE MONONITRATE ER 60 MG TAB.ER.24H PO SCH (08:06)
--- NOTE | 2024-08-01 11:25 | CA ---
Transthoracic Echo Report Name: Rony Gruber Age: 84 Gender: M : 1940 Exam Date: 08/01/2024 08:49 Exam Location: [facility] Ht (in): 65 Wt (lb): 180 Ordering Physician: Don Lawler MD Attending/Referring Phys: Assistant Press Operator Vee Smith RDCS Procedure CPT: Indications: PALPITATION Cardiac Hx: Technical Quality: Good Contrast 1: Total Dose (mL): Contrast 2: Total Dose (mL): MEASUREMENTS (Male / Female) Normal Values 2D ECHO LV Diastolic Diameter PLAX 5.3 cm 4.2 - 5.9 / 3.9 - 5.3 cm LV Systolic Diameter PLAX 3.7 cm IVS Diastolic Thickness 1.2 cm 0.6 - 1.0 / 0.6 - 0.9 cm LVPW Diastolic Thickness 1.1 cm 0.6 - 1.0 / 0.6 - 0.9 cm LV Relative Wall Thickness 0.4 RV Internal Dim ED PLAX 3.3 cm LA Systolic Diameter LX 5.2 cm 3.0 - 4.0 / 2.7 - 3.8 cm LV Diastolic Volume MOD 4C 137.5 cm??? LV Systolic Volume MOD 4C 81.4 cm??? LV Ejection Fraction MOD 4C 40.8 % LV Cardiac Index MOD 4C 1545.3 cm???/min???m??? LV Diastolic Length 4C 8.9 cm LV Systolic Length 4C 7.5 cm LV Diastolic Volume MOD 2C 131.8 cm??? LV Systolic Volume MOD 2C 59.9 cm??? LV Ejection Fraction MOD 2C 54.6 % LV Cardiac Index MOD 2C 1981.7 cm???/min???m??? LV Diastolic Length 2C 7.8 cm LV Systolic Length 2C 6.4 cm LA Volume 121.1 cm??? 18 - 58 / 22 - 52 cm??? LA Volume Index 61.7 cm???/m??? 16 - 28 cm???/m??? M-MODE Aortic Root Diameter MM 3.5 cm AV Cusp Separation MM 1.8 cm DOPPLER AV Peak Velocity 198.1 cm/s AV Peak Gradient 15.7 mmHg AV Mean Velocity 132.3 cm/s AV Mean Gradient 8.4 mmHg AV Velocity Time Integral 45.8 cm AI Peak Velocity 319.3 cm/s AI Peak Gradient 40.8 mmHg AI Pressure Half Time 731.9 ms MV Area PHT 2.0 cm??? Mitral E Point Velocity 76.1 cm/s Mitral A Point Velocity 87.8 cm/s Mitral E to A Ratio 0.9 MV Deceleration Time 382.0 ms TR Peak Velocity 191.3 cm/s TR Peak Gradient 14.6 mmHg Right Ventricular Systolic Press 21.5 mmHg FINDINGS Left Ventricle Left ventricular ejection fraction is estimated at 45-50 %. Left ventricular cavity size normal. Mildly increased septal wall thickness. Right Ventricle Moderate right ventricular dilatation. Right ventricular systolic pressure within normal limits. Right Atrium Normal right atrial size. Left Atrium Moderately increased left atrial diameter. Severely increased left atrial volume. Mildly increased left atrial area. Mitral Valve Structurally normal mitral valve. Mild mitral regurgitation. Aortic Valve Trileaflet aortic valve. Thickened aortic valve without stenosis. Mild aortic regurgitation. Tricuspid Valve Structurally normal tricuspid valve. Mild tricuspid regurgitation. Pulmonic Valve Structurally normal pulmonic valve. No pulmonic regurgitation. Pericardium No pericardial or pleural effusion. Aorta Normal size aortic root and proximal ascending aorta. CONCLUSIONS Mild to moderate LV systolic dysfunction with an ejection fraction of 45% Moderate left atrial enlargement Mild mitral and aortic regurgitation Hypokinetic inferior wall Previewed by: Dr. Tanvir Johnson MD (Electronically Signed) Final Date: 01 August 2024 11:24
[2024-08-01 11:37] LABS: Glucose,Whole Blood 142 mg/dL (70-110)
--- NOTE | 2024-08-01 13:55 | P.PN ---
Subjective Progress Note Date: 08/01/24 HISTORY OF PRESENTING ILLNESS Patient is a 84-year-old male with past medical history of coronary ypass twice. He also has history of paroxysmal atrial fibrillation known to Dr. Velasquez. In January she had a cardioversion done and he has been dealing with tachybradycardia syndrome lately. Lately he was more on bradycardic side therefore his amiodarone and AV jonathan blockers were discontinued. This time he presented to the hospital because of symptoms of substernal chest pressure and palpitations along with concerns of fast heartbeat. Patient reports that he is always symptomatic from his atrial fibrillation and knows when he goes into it. On admission he was noticed to be in A-fib RVR. He was started on Cardizem drip and since then he has converted back to sinus bradycardia with heart rate in hi gh 50s. Patient does have a tendency of flipping back into atrial fibrillation with minimal exertion. Progress Note July 31, 2024 Patient continues to be in sinus rhythm with intermittent PACs on telemetry. His heart rate has been in mid 50s. Because of concerns of low heart rate, patient did not receive his beta-neelima today. I would ambulate the patient to see if patient has any chronotropic competence or he has a tendency of flipping back into atrial fibrillation with minimal exertion. 08/01 Blood pressure 123/49, heart rate in the 50s, pulse ox 97% on room air. Echocardiogram is pending. PHYSICAL EXAMINATION Vital signs reviewed. Head: Normocephalic. Eyes: Sclerae nonicteric. Neck: Brisk carotid upstroke, no jugular venous distention. Lungs: Clear to auscultation. No significant wheezing or rhonchi Heart: Regular rate and rhythm, S1-S2, no S3, mild systolic murmur audible Abdomen: Soft nontender, positive bowel sounds. Extremities: No edema, intact distal pulses. Neuro: Alert, oritented, no focal deficits. Detailed neuro exam was not performed. ASSESSMENT Atrial fibrillation with RVR, symptomatic on admission. Currently sinus bradycardia Concerns of tachybradycardia syndrome. 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 Prior history of CABG times twice Dyslipidemia Chronic anemia hemoglobin 12, stable no concerns of bleeding PLAN Current cardiac medications: Aspirin 81 mg daily, Eliquis 5 mg twice daily, amiodarone 100 mg daily, atorvastatin 20 mg daily, metoprolol succinate 12.5 mg daily, Farxiga 10 mg daily. Continue Cardizem 60 mg to be used only as needed 4 times a day if patient has symptoms of palpitations and fast heartbeat Obtain echocardiogram Increase Imdur to 60 mg daily and increase losartan to 50 mg daily Monitor patient on telemetry for next 24 hours. Consider discharging patient on 7 days of extended Holter monitor to look for heart rate trends. Patient does have elevated troponin on this admission which appears to be type I in nature. Patient does have residual CAD with moderate to severe CAD in LCx not amiable for intervention from recent catheterization. Continue treating patient medically. Plan to discuss with Dr. TACOS Velasquez regarding catheterization If patient continues to demonstrate tachybradycardia syndrome and is not able to maintain a good quality of life because of being limited in physical activity, consider pacemaker evaluation Nurse practitioner note has been reviewed, I agree with documented findings and plan of care. Patient was seen and examined. Objective - Vital Signs Vital signs: Vital Signs Temp 98.0 F 07/31/24 20:50 Pulse 48 L 08/01/24 04:30 Resp 16 08/01/24 04:30 BP 155/68 08/01/24 04:30 Pulse Ox 91 L 08/01/24 04:30 FiO2 Intake & Output 07/31/24 08/01/24 08/01/24 18:59 06:59 18:59 Intake Total 486 Balance 486 Intake: IV 10 Invasive Line 1 10 Oral 476 Other: Voiding Method Toilet Toilet Urinal Urinal # Voids 2 1 # Bowel Movements 1 - Labs CBC & Chem 7: 07/31/24 05:51 07/31/24 05:51 Labs: Abnormal Lab Results - Last 24 Hours (Table) 07/30/24 07/31/24 07/31/24 Range/Units 07:27 11:14 16:14 POC Glucose (mg/dL) 140 H 122 H (70-110) mg/dL NT-Pro-B Natriuret Pep 1406 H (0-450) pg/mL 07/31/24 08/01/24 Range/Units 20:16 06:06 POC Glucose (mg/dL) 134 H 115 H (70-110) mg/dL NT-Pro-B Natriuret Pep (0-450) pg/mL
[2024-08-01 16:15] LABS: Glucose,Whole Blood 122 mg/dL (70-110)
[2024-08-01 20:11] LABS: Glucose,Whole Blood 128 mg/dL (70-110)
--- NOTE | 2024-08-01 21:51 | P.PN ---
Subjective Progress Note Date: 08/01/24 patient 84-year-old gentleman with past medical history significant for atrial fibrillation, hyperlipidemia who presents the ER because of palpitations. Patient stated that he was all right when yesterday evening he started complaining of palpitations.Patient has history of A-fib and his heart rate was elevated. Patient was complaining of lightheadedness at the time. There was no complaint of chest pain. There was no complaint of shortness of breath at the time. Denied any nausea, vomiting or abdominal pain at the time. EMS was called and patient was given adenosine en route to the ER. Initial lab work done in the ER showed WBC 7.4, hemoglobin 12.7, platelet count 213, sodium 140, potassium 3.5, BUN 24, creatinine 1.08, glucose 124, magnesium 2.1, bilirubin 1.5, troponin 0.012 EKG done in the ER showed heart rate of 87, irregular in rhythm, no ST segment elevation, T wave inversion seen in lead III and aVF. Chest x-ray done in the ER showed no acute findings in the chest Patient admitted to internal medicine service 07/31. Patient seen and examined. Heart rate is better controlled, vital signs are heart rate of 54, blood pressure 167 /52, respirations 16, currently on room air. WBC 7.2, hemoglobin 9.8, sodium 140, potassium 3.8, BUN 17, creatinine 1.16. 08/01/2024 Patient is evaluated today in follow up on the cardiac unit. Patients heart rate remains in the 50s since being resumed on amiodarone and beta neelima. He is not having any palpitations or chest discomfort currently. Echocardiogram reveals EF 45-50% with moderate left atrial enlargement, mild MR and AR. Hypokinetic inferior wall. REVIEW OF SYSTEMS: CONSTITUTIONAL: No fever, no malaise,. CARDIOVASCULAR: No chest pain, no palpitations, no syncope. PULMONARY: No shortness of breath, no cough, GASTROINTESTINAL: No diarrhea, no nausea, no vomiting, no abdominal pain. NEUROLOGICAL: No headaches, no weakness, PHYSICAL EXAMINATION: GENERAL: The patient is alert and oriented x3, not in any acute distress. Well developed, well nourished. HEENT: Pupils are round and equally reacting to light. EOMI. No scleral icterus. No conjunctival pallor. Normocephalic, atraumatic. No pharyngeal erythema. No thyromegaly. CARDIOVASCULAR: S1 and S2 present. No murmurs, rubs, or gallops. PULMONARY: Chest is clear to auscultation, no wheezing or crackles. ABDOMEN: Soft, nontender, nondistended, normoactive bowel sounds. No palpable organomegaly. MUSCULOSKELETAL: No joint swelling or deformity. EXTREMITIES: No cyanosis, clubbing, or pedal edema. NEUROLOGICAL: Gross neurological examination did not reveal any focal deficits. SKIN: No rashes. Assessment and plan A-fib with RVR symptomatic now sinus bradycardia concern for tachybrady snydrome NSTEMI Troponin elevation concern for Type [address] CT with known residual CAD of the left circ and unable to undergo PCI of the lesion as per current cath reports Hx of CABG x 2 Hyperlipidemia GI prophylaxis DVT prophylaxis Full Code Plan Monitor vital signs, Continue telemetry monitoring Continue Eliquis Continue metoprolol and amiodarone Continue aspirin, Lipitor, Cardiology following Discussion of possible pacemaker. The impression and plan of care has been dictated by Ness Rico Nurse Practitioner as directed. Dr. Michael MD I have performed a history and physical examination and medical decision making of this patient, discussed the same with the dictator, and agree with the dictators assessment and plan as written, documented as a scribe. Based on total visit time, I have performed more than 50% of this visit. Objective - Vital Signs Vital signs: Vital Signs Temp 98.1 F 08/01/24 07:56 Pulse 53 L 08/01/24 07:56 Resp 16 08/01/24 07:56 BP 174/69 08/01/24 07:56 Pulse Ox 96 08/01/24 07:56 FiO2 Intake & Output 07/31/24 08/01/24 08/01/24 18:59 06:59 18:59 Intake Total 486 240 Balance 486 240 Intake: IV 10 Invasive Line 1 10 Oral 476 240 Other: Voiding Method Toilet Toilet Urinal Urinal # Voids 2 1 # Bowel Movements 1 - Labs CBC & Chem 7: 07/31/24 05:51 07/31/24 05:51 Labs: Abnormal Lab Results - Last 24 Hours (Table) 07/30/24 07/31/24 07/31/24 Range/Units 07:27 11:14 16:14 POC Glucose (mg/dL) 140 H 122 H (70-110) mg/dL NT-Pro-B Natriuret Pep 1406 H (0-450) pg/mL 07/31/24 08/01/24 Range/Units 20:16 06:06 POC Glucose (mg/dL) 134 H 115 H (70-110) mg/dL NT-Pro-B Natriuret Pep (0-450) pg/mL Assessment and Plan Time with Patient: Less than 30
[2024-08-02 06:12] LABS: Glucose,Whole Blood 115 mg/dL (70-110)
[2024-08-02] MEDS: LOSARTAN 50 MG TAB PO SCH (09:03)
[2024-08-02 11:23] LABS: Glucose,Whole Blood 136 mg/dL (70-110)
--- NOTE | 2024-08-02 14:03 | P.PN ---
Subjective Progress Note Date: 08/02/24 HISTORY OF PRESENTING ILLNESS Patient is a 84-year-old male with past medical history of coronary ypass twice. He also has history of paroxysmal atrial fibrillation known to Dr. Velasquez. In January she had a cardioversion done and he has been dealing with tachybradycardia syndrome lately. Lately he was more on bradycardic side therefore his amiodarone and AV jonathan blockers were discontinued. This time he presented to the hospital because of symptoms of substernal chest pressure and palpitations along with concerns of fast heartbeat. Patient reports that he is always symptomatic from his atrial fibrillation and knows when he goes into it. On admission he was noticed to be in A-fib RVR. He was started on Cardizem drip and since then he has converted back to sinus bradycardia with heart rate in hi gh 50s. Patient does have a tendency of flipping back into atrial fibrillation with minimal exertion. Progress Note July 31, 2024 Patient continues to be in sinus rhythm with intermittent PACs on telemetry. His heart rate has been in mid 50s. Because of concerns of low heart rate, patient did not receive his beta-neeilma today. I would ambulate the patient to see if patient has any chronotropic competence or he has a tendency of flipping back into atrial fibrillation with minimal exertion. 08/01 Blood pressure 123/49, heart rate in the 50s, pulse ox 97% on room air. Echocardiogram is pending. 08/02 Patient denies having any chest pain and no shortness of breath. Blood pressure 152/80, heart rate 60, pulse ox 94% on room air. Echocardiogram reveals EF of 45%, moderate left atrial enlargement, mild mitral and aortic regurgitation. Hypokinetic inferior wall. Patient is currently in a sinus rhythm. Previous cath films have been reviewed by Dr. Osborn and he will discuss patient case with Dr. TACOS Velasquez his primary peoplesoft hcm developer. Patient is agreeable to move forward with cardiac catheterization. PHYSICAL EXAMINATION Vital signs reviewed. Head: Normocephalic. Eyes: Sclerae nonicteric. Neck: Brisk carotid upstroke, no jugular venous distention. Lungs: Clear to auscultation. No significant wheezing or rhonchi Heart: Regular rate and rhythm, S1-S2, no S3, mild systolic murmur audible Abdomen: Soft nontender, positive bowel sounds. Extremities: No edema, intact distal pulses. Neuro: Alert, oritented, no focal deficits. Detailed neuro exam was not performed. ASSESSMENT Atrial fibrillation with RVR, symptomatic on admission. Currently sinus bradycardia Concerns of tachybradycardia syndrome. 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 Prior history of CABG times twice Dyslipidemia Chronic anemia hemoglobin 12, stable no concerns of bleeding PLAN Current cardiac medications: Aspirin 81 mg daily, Eliquis 5 mg twice daily, amiodarone 100 mg daily, atorvastatin 20 mg daily, metoprolol succinate 12.5 mg daily, Farxiga 10 mg daily, Imdur 60 mg and losartan 50 mg daily. Continue Cardizem 60 mg to be used only as needed 4 times a day if patient has symptoms of palpitations and fast heartbeat Possible event monitor at discharge N.p.o. after midnight Anticipate cardiac catheterization tomorrow with Dr. TACOS Velasquez. Nurse practitioner note has been reviewed, I agree with documented findings and plan of care. Patient was seen and examined. Objective - Vital Signs Vital signs: Vital Signs Temp 98.1 F 08/02/24 03:27 Pulse 56 L 08/02/24 03:27 Resp 18 08/02/24 03:27 BP 157/58 08/02/24 03:27 Pulse Ox 93 L 08/02/24 03:27 FiO2 Intake & Output 08/01/24 08/02/24 08/02/24 18:59 06:59 18:59 Intake Total 358 120 Balance 358 120 Intake: Oral 358 120 Other: Voiding Method Toilet Urinal # Voids 0 - Labs CBC & Chem 7: 07/31/24 05:51 07/31/24 05:51 Labs: Abnormal Lab Results - Last 24 Hours (Table) 08/01/24 08/01/24 08/01/24 Range/Units 11:35 16:14 20:09 POC Glucose (mg/dL) 142 H 122 H 128 H (70-110) mg/dL 08/02/24 Range/Units 06:08 POC Glucose (mg/dL) 115 H (70-110) mg/dL
--- NOTE | 2024-08-02 16:16 | XR ---
EXAMINATION TYPE: XR chest 2V DATE OF EXAM: 08/02/2024 4:04 PM CLINICAL INDICATION: Male, 84 years old with history of wheezing shortness of breath; [facility] COMPARISON: Chest radiographs from 07/30/2024 TECHNIQUE: XR chest 2V Frontal view of the chest. FINDINGS: Lungs/Pleura: There is flattening of the diaphragm with increased lucency of the lungs. No evidence o f pneumothorax, pleural effusion or focal consolidation. Pulmonary vascularity: Unremarkable. Heart/mediastinum: Cardiomediastinal silhouette is enlarged. Musculoskeletal: No acute osseous pathology. Midline sternotomy wires are noted. IMPRESSION: 1. No acute cardiopulmonary disease process. 2. COPD changes.
[2024-08-02 16:19] LABS: Glucose,Whole Blood 139 mg/dL (70-110)
[2024-08-02] MEDS: ONDANSETRON 4 MG/2 ML VIAL IVP PRN (17:13)
[2024-08-02] MEDS ORDERED: IPRATROPIUM-ALBUTEROL 3 ML NEB INHALATION PRN (19:57)
--- NOTE | 2024-08-02 19:59 | P.PN ---
Subjective Progress Note Date: 08/02/24 patient 84-year-old gentleman with past medical history significant for atrial fibrillation, hyperlipidemia who presents the ER because of palpitations. Patient stated that he was all right when yesterday evening he started complaining of palpitations.Patient has history of A-fib and his heart rate was elevated. Patient was complaining of lightheadedness at the time. There was no complaint of chest pain. There was no complaint of shortness of breath at the time. Denied any nausea, vomiting or abdominal pain at the time. EMS was called and patient was given adenosine en route to the ER. Initial lab work done in the ER showed WBC 7.4, hemoglobin 12.7, platelet count 213, sodium 140, potassium 3.5, BUN 24, creatinine 1.08, glucose 124, magnesium 2.1, bilirubin 1.5, troponin 0.012 EKG done in the ER showed heart rate of 87, irregular in rhythm, no ST segment elevation, T wave inversion seen in lead III and aVF. Chest x-ray done in the ER showed no acute findings in the chest Patient admitted to internal medicine service 07/31. Patient seen and examined. Heart rate is better controlled, vital signs are heart rate of 54, blood pressure 167 /52, respirations 16, currently on room air. WBC 7.2, hemoglobin 9.8, sodium 140, potassium 3.8, BUN 17, creatinine 1.16. 08/01/2024 Patient is evaluated today in follow up on the cardiac unit. Patients heart rate remains in the 50s since being resumed on amiodarone and beta neelima. He is not having any palpitations or chest discomfort currently. Echocardiogram reveals EF 45-50% with moderate left atrial enlargement, mild MR and AR. Hypokinetic inferior wall. 08/02/2024 Patient is evaluated today in follow. Was feeling short of breath when up ambulating. Chest xray shows COPD changes. Had some faint wheezing on exam. Heart rate 56-58. On room air. REVIEW OF SYSTEMS: CONSTITUTIONAL: No fever, no malaise,. CARDIOVASCULAR: No chest pain, no palpitations, no syncope. PULMONARY: No shortness of breath, no cough, GASTROINTESTINAL: No diarrhea, no nausea, no vomiting, no abdominal pain. NEUROLOGICAL: No headaches, no weakness, PHYSICAL EXAMINATION: GENERAL: The patient is alert and oriented x3, not in any acute distress. Well developed, well nourished. HEENT: Pupils are round and equally reacting to light. EOMI. No scleral icterus. No conjunctival pallor. Normocephalic, atraumatic. No pharyngeal erythema. No thyromegaly. CARDIOVASCULAR: S1 and S2 present. No murmurs, rubs, or gallops. PULMONARY: Chest is clear to auscultation, no wheezing or crackles. ABDOMEN: Soft, nontender, nondistended, normoactive bowel sounds. No palpable organomegaly. MUSCULOSKELETAL: No joint swelling or deformity. EXTREMITIES: No cyanosis, clubbing, or pedal edema. NEUROLOGICAL: Gross neurological examination did not reveal any focal deficits. SKIN: No rashes. Assessment and plan A-fib with RVR symptomatic now sinus bradycardia concern for tachybrady snydrome NSTEMI Troponin elevation concern for Type 1 [place] with known residual CAD of the left circ and unable to undergo PCI of the lesion as per current cath reports Hx of CABG x 2 Hyperlipidemia Suspected COPD as per chest xray Former smoker GI prophylaxis DVT prophylaxis Full Code Plan Monitor vital signs, Continue telemetry monitoring Continue Eliquis Continue metoprolol and amiodarone Continue aspirin, Lipitor, Cardiology following Patient will be going for cardiac catheterization tomorrow Duonebs PRN and scheduled symbicort have been added. NPO after midnight. The impression and plan of care has been dictated by Ness Rico, Nurse Practitioner as directed. Dr. Michael MD I have performed a history and physical examination and medical decision making of this patient, discussed the same with the dictator, and agree with the dictators assessment and plan as written, documented as a scribe. Based on total visit time, I have performed more than 50% of this visit. Objective - Vital Signs Vital signs: Vital Signs Temp 98.5 F 08/02/24 11:33 Pulse 56 L 08/02/24 11:33 Resp 16 08/02/24 11:33 BP 123/52 08/02/24 11:33 Pulse Ox 97 08/02/24 11:33 FiO2 Intake & Output 08/01/24 08/02/24 08/02/24 18:59 06:59 18:59 Intake Total 358 240 Balance 358 240 Intake: Oral 358 240 Other: Voiding Method Toilet Toilet Urinal Urinal # Voids 0 - Labs CBC & Chem 7: 07/31/24 05:51 07/31/24 05:51 Labs: Abnormal Lab Results - Last 24 Hours (Table) 08/01/24 08/01/24 08/02/24 Range/Units 16:14 20:09 06:08 POC Glucose (mg/dL) 122 H 128 H 115 H (70-110) mg/dL 08/02/24 Range/Units 11:21 POC Glucose (mg/dL) 136 H (70-110) mg/dL Assessment and Plan Time with Patient: Less than 30
[2024-08-02 20:08] LABS: Glucose,Whole Blood 144 mg/dL (70-110)
[2024-08-02] MEDS: ACETAMINOPHEN TAB 325 MG TAB PO PRN (21:04)
[2024-08-02] MEDS: SYMBICORT 80-4.5 MCG INHALER INHALATION SCH (21:59)
[2024-08-02 22:33] VITALS: RESP 18
[2024-08-03] MEDS: BENZONATATE 100 MG CAP PO PRN (02:30)
[2024-08-03 06:20] LABS: Glucose,Whole Blood 113 mg/dL (70-110)
[2024-08-03 09:23] LABS: African American GFR (CKD) 63 (>60 ml/min/1.73 sqM); Anion Gap 7 mmol/L; Blood Urea Nitrogen 24 mg/dL (9-20); Calcium 8.5 mg/dL (8.4-10.2); Carbon Dioxide 30 mmol/L (22-30); Chloride 96 mmol/L (98-107); Glucose 116 mg/dL (74-99); Magnesium 2.2 mg/dL (1.6-2.3); Non-African American GFR(CKD) 55 (>60 ml/min/1.73 sqM); Potassium 4.2 mmol/L (3.5-5.1); Sodium 133 mmol/L (137-145)
[2024-08-03] MEDS: CHOLECALCIFEROL 25 MCG (1000 IU) TABLET PO SCH (10:49)
[2024-08-03] MEDS: ASCORBIC ACID 500 MG TAB PO SCH (10:49)
[2024-08-03] MEDS: ZINC SULFATE 220 MG CAP PO SCH (10:50)
[2024-08-03 10:55] VITALS: BP 128/59; PULSE 53; TEMP 98.7
[2024-08-03 11:21] LABS: Glucose,Whole Blood 131 mg/dL (70-110)
--- NOTE | 2024-08-03 12:03 | P.PN ---
Subjective Progress Note Date: 08/03/24 HISTORY OF PRESENTING ILLNESS Patient is a 84-year-old male with past medical history of coronary ypass twice. He also has history of paroxysmal atrial fibrillation known to Dr. Velasquez. In January she had a cardioversion done and he has been dealing with tachybradycardia syndrome lately. Lately he was more on bradycardic side therefore his amiodarone and AV jonathan blockers were discontinued. This time he presented to the hospital because of symptoms of substernal chest pressure and palpitations along with concerns of fast heartbeat. Patient reports that he is always symptomatic from his atrial fibrillation and knows when he goes into it. On admission he was noticed to be in A-fib RVR. He was started on Cardizem drip and since then he has converted back to sinus bradycardia with heart rate in hi gh 50s. Patient does have a tendency of flipping back into atrial fibrillation with minimal exertion. Progress Note July 31, 2024 Patient continues to be in sinus rhythm with intermittent PACs on telemetry. His heart rate has been in mid 50s. Because of concerns of low heart rate, patient did not receive his beta-neelima today. I would ambulate the patient to see if patient has any chronotropic competence or he has a tendency of flipping back into atrial fibrillation with minimal exertion. 08/01 Blood pressure 123/49, heart rate in the 50s, pulse ox 97% on room air. Echocardiogram is pending. 08/02 Patient denies having any chest pain and no shortness of breath. Blood pressure 152/80, heart rate 60, pulse ox 94% on room air. Echocardiogram reveals EF of 45%, moderate left atrial enlargement, mild mitral and aortic regurgitation. Hypokinetic inferior wall. Patient is currently in a sinus rhythm. Previous cath films have been reviewed by Dr. Osborn and he will discuss patient case with Dr. TACOS Velasquez his primary sticker machine operator. Patient is agreeable to move forward with cardiac catheterization. 08/03 Last evening, patient developed fever of 102.9 and was tested positive for CO VID. He denies having any chest pain. We had tentative plans for cardiac catheterization today which will be canceled. Blood pressure 128/59, heart rate 53, pulse ox 94% on room air. PHYSICAL EXAMINATION Vital signs reviewed. Head: Normocephalic. Eyes: Sclerae nonicteric. Neck: Brisk carotid upstroke, no jugular venous distention. Lungs: Clear to auscultation. No significant wheezing or rhonchi Heart: Regular rate and rhythm, S1-S2, no S3, mild systolic murmur audible Abdomen: Soft nontender, positive bowel sounds. Extremities: No edema, intact distal pulses. Neuro: Alert, oritented, no focal deficits. Detailed neuro exam was not performed. ASSESSMENT Atrial fibrillation with RVR, symptomatic on admission. Currently sinus bradycardia Concerns of tachybradycardia syndrome. 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 Prior history of CABG times twice Dyslipidemia Chronic anemia hemoglobin 12, stable no concerns of bleeding COVID-19 PLAN Current cardiac medications: Aspirin 81 mg daily, Eliquis 5 mg twice daily, amiodarone 100 mg daily, atorvastatin 20 mg daily, metoprolol succinate 12.5 mg daily, Farxiga 10 mg daily, Imdur 60 mg and losartan 50 mg daily. Continue Cardizem 60 mg to be used only as needed 4 times a day if patient has symptoms of palpitations and fast heartbeat Cancel cardiac catheterization Patient is cleared from a cardiac perspective for discharge and may follow-up in the office with Dr. Velasquez and cardiac catheterization can be scheduled as an outpatient. Nurse practitioner note has been reviewed, I agree with documented findings and plan of care. Patient was seen and examined. Objective - Vital Signs Vital signs: Vital Signs Temp 98.5 F 08/03/24 07:20 Pulse 58 L 08/03/24 07:38 Resp 18 08/03/24 07:27 BP 156/70 08/03/24 07:20 Pulse Ox 95 08/03/24 09:42 FiO2 Intake & Output 08/02/24 08/03/24 08/03/24 18:59 06:59 18:59 Intake Total 240 10 10 Balance 240 10 10 Intake: IV 10 10 Invasive Line 3 10 10 Oral 240 Other: Voiding Method Toilet Toilet Toilet Urinal # Voids 1 - Labs CBC & Chem 7: 07/31/24 05:51 08/03/24 08:10 Labs: Abnormal Lab Results - Last 24 Hours (Table) 08/02/24 08/02/24 08/02/24 Range/Units 11:21 16:18 20:06 Sodium (137-145) mmol/L Chloride (98-107) mmol/L BUN (9-20) mg/dL Glucose (74-99) mg/dL POC Glucose (mg/dL) 136 H 139 H 144 H (70-110) mg/dL SARS-CoV-2 (PCR) (Not Detectd) 08/02/24 08/03/24 08/03/24 Range/Units 21:26 06:19 08:10 Sodium 133 L (137-145) mmol/L Chloride 96 L (98-107) mmol/L BUN 24 H (9-20) mg/dL Glucose 116 H (74-99) mg/dL POC Glucose (mg/dL) 113 H (70-110) mg/dL SARS-CoV-2 (PCR) Detected A (Not Detectd)
[2024-08-03 16:18] LABS: Glucose,Whole Blood 118 mg/dL (70-110)
--- NOTE | 2024-08-04 13:48 | CDI ---
Documentation Clarification Form Date: 08/03/2024 12:04:00 PM From: Maria C Witt RN CCDS Phone: [phone] Admit Date: 08/01/2024 08:11:00 AM Patient Name: Rony Gruber Visit Number: [id number] Discharge Date: 08/03/2024 05:11:00 PM ATTENTION: The Clinical Documentation Specialists (CDI) and [facility] Coding Staff appreciate your assistance in clarifying documentation. Please respond to the clarification below the line at the bottom and electronically sign. The CDI & [facility] Coding staff will review the response and follow-up if needed. Please note: Queries are made part of the Legal Health Record. If you have any questions, please contact the author of this message via ITS. Provider: Ness Rico Your patient has the documented diagnosis of unspecified Heart failure . Additional information regarding the type, acuity of Heart failure is requested. History/Risk Factors: 84 year old male presents to the ED with palpitations and light headedness. Medical History: Atrial fibrillation, Atrial flutter, CAD, Cancer, Heart failure and HTN. Clinical Indicators: VS/Pulse OX, 07/29: B/P 145/72; HR 98; Temp 98.0F Oral; RR 18; SpO2 95% RA BNP, 08/03: 684 Echocardiogram Results: Chest X Ray, 07/30: No acute findings in the chest Treatment: 08/01 Lasix 20mg po daily, 07/30 Torpol Xl 12.5mg po daily; Farxiga 10mg po daily, Cozaar 50mg po daily In your professional opinion, can you please clarify the acuity and type of CHF if known? [ x ] Chronic Systolic Heart Failure (reduced EF) [ ] Other, please specify [ ] Unable to determine (Template Last Revised: December 2020) MTDD
--- NOTE | 2024-08-05 14:45 | P.DS ---
Providers Date of admission: 08/01/24 08:11 Attending physician: Elana Mccurdy Consults: 07/30/24 02:17 Consult Physician Routine Consulting Provider: Cyndee Shaw Consult Reason/Comments: afibRVR Do you want consulting provider notified?: Yes Primary care physician: Osmin Osuna MD Hospital Course: Final Diagnosis A-fib with RVR symptomatic now sinus bradycardia concern for tachybrady snydrome Acute systolic dysfunction EF of 45 to 50%. 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 Continue Cardizem 60 mg to be used only as needed 4 times a day if patient has symptoms of palpitations and fast heartbeat. Patient is cleared from a cardiac perspective for discharge and may follow-up in the office with Dr. Velasquez and cardiac catheterization can be scheduled as an outpatient. Follow up with PCP dr. Osmin Osuna. Repeat blood work 2 to 3 days. Hospital Course patient 84-year-old gentleman with past medical history significant for atrial fibrillation, hyperlipidemia who presents the ER because of palpitations. Patient stated that he was all right when yesterday evening he started complaining of palpitations.Patient has history of A-fib and his heart rate was elevated. Patient was complaining of lightheadedness at the time. There was no complaint of chest pain. There was no complaint of shortness of breath at the time. Denied any nausea, vomiting or abdominal pain at the time. EMS was called and patient was given adenosine en route to the ER. Initial lab work done in the ER showed WBC 7.4, hemoglobin 12.7, platelet count 213, sodium 140, potassium 3.5, BUN 24, creatinine 1.08, glucose 124, magnesium 2.1, bilirubin 1.5, troponin 0.012 EKG done in the ER showed heart rate of 87, irregular in rhythm, no ST segment elevation, T wave inversion seen in lead III and aVF. Chest x-ray done in the ER showed no acute findings in the chest. Patient admitted to internal medicine service. Cardiology has evaluated the patient. Patient was resumed on his amiodarone and beta-neelima secondary to the A-fib RVR and SVT. Patient's heart rate is currently been resting in the 50s to 60s at this time no chest pain no palpitations he has been up ambulating. Patient did have an episode of shortness of breath a chest x-ray was taken with no acute findings. He was found to be COVID-positive as he did have a singular temp of 102. Otherwise he has been on room air no cough no nausea vomiting or diarrhea. He had an echocardiogram done revealing an EF of 45 to 50% with moderate left atrial enlargement mild MR and AR. Hypokinetic inferior wall. Patient was scheduled tentatively for a cardiac catheterization set can Mathieu to the cardiomyopathy however he was found to be COVID-positive and cardiology as patient is currently asymptomatic at this time would like for the patient to follow-up outpatient and can be discharged home. Please see medication reconciliation for a list of current medications. Thank you for allowing us to participate in the care of this patient. The impression and plan of care has been dictated by Ness Rico, Nurse Practitioner as directed. Dr. Michael MD I have performed a history and physical examination and medical decision making of this patient, discussed the same with the dictator, and agree with the dictators assessment and plan as written, documented as a scribe. Based on total visit time, I have performed more than 50% of this visit. Patient Condition at Discharge: Fair Plan - Discharge Summary Discharge Rx Participant: No New Discharge Prescriptions: New Diltiazem Oral [Cardizem*] 60 mg PO QID PRN #20 tab PRN Reason: for palpitations Losartan [Cozaar] 50 mg PO DAILY #30 tab Atorvastatin [Lipitor] 20 mg PO DAILY #30 tab Aspirin 81 mg PO DAILY #30 tab Amiodarone [Cordarone] 100 mg PO DAILY #30 tab Dapagliflozin Propanediol [Farxiga] 10 mg PO DAILY #30 tab Furosemide [Lasix] 20 mg PO DAILY #30 tab Zinc Sulfate [Orazinc] 220 mg PO DAILY #14 cap Benzonatate [Tessalon Perles] 100 mg PO TID PRN #20 cap PRN Reason: Cough Metoprolol Succinate (ER) [Toprol XL] 12.5 mg PO DAILY #30 tab Ascorbic Acid [Vitamin C] 500 mg PO DAILY #0 tab Cholecalciferol [Vitamin D3 (25 Mcg = 1000 Iu)] 50 mcg PO DAILY tab Continue Isosorbide Mononitrate ER [Imdur] 60 mg PO DAILY #30 tab.er.24h Apixaban [Eliquis] 5 mg PO BID #60 tab Vit C/E/Zn/Coppr/Lutein/Zeaxan [Preservision Areds 2 Softgel] 1 cap PO BID Discontinued Repaglinide 0.5 mg PO BID Doxazosin [Cardura] 4 mg PO DAILY Atorvastatin [Lipitor] 40 mg PO DAILY #30 tab Furosemide [Lasix] 20 mg PO BID Losartan [Cozaar] 100 mg PO HS Discharge Medication List Apixaban [Eliquis] 5 mg PO BID #60 tab 12/04/18 [Rx] Isosorbide Mononitrate ER [Imdur] 60 mg PO DAILY #30 tab.er.24h 12/04/18 [Rx] Vit C/E/Zn/Coppr/Lutein/Zeaxan [Preservision Areds 2 Softgel] 1 cap PO BID 07/05/23 [History] Amiodarone [Cordarone] 100 mg PO DAILY #30 tab 08/03/24 [Rx] Ascorbic Acid [Vitamin C] 500 mg PO DAILY #0 tab 08/03/24 [Rx] Aspirin 81 mg PO DAILY #30 tab 08/03/24 [Rx] Atorvastatin [Lipitor] 20 mg PO DAILY #30 tab 08/03/24 [Rx] Benzonatate [Tessalon Perles] 100 mg PO TID PRN #20 cap 08/03/24 [Rx] Cholecalciferol [Vitamin D3 (25 Mcg = 1000 Iu)] 50 mcg PO DAILY tab 08/03/24 [Rx] Dapagliflozin Propanediol [Farxiga] 10 mg PO DAILY #30 tab 08/03/24 [Rx] Diltiazem Oral [Cardizem*] 60 mg PO QID PRN #20 tab 08/03/24 [Rx] Furosemide [Lasix] 20 mg PO DAILY #30 tab 08/03/24 [Rx] Losartan [Cozaar] 50 mg PO DAILY #30 tab 08/03/24 [Rx] Metoprolol Succinate (ER) [Toprol XL] 12.5 mg PO DAILY #30 tab 08/03/24 [Rx] Zinc Sulfate [Orazinc] 220 mg PO DAILY #14 cap 08/03/24 [Rx] Follow up Appointment(s)/Referral(s): Hitesh Velasquez MD [STAFF PHYSICIAN] - 1 Week Osmin Osuna MD [Primary Care Provider] - 08/10/24 11:00 am Ambulatory/Diagnostic Orders: Basic Metabolic Panel [LAB.AMB] Time Frame: 4 Days, Location: None Selected Complete Blood Count w/diff [LAB.AMB] Time Frame: 4 Days, Location: None Selected Patient Instructions/Handouts: A-fib (Atrial Fibrillation) (DC), Supraventricular Tachycardia (DC), Heart Palpitations (DC), COVID-19 (Coronavirus Disease 2019) (DC) Activity/Diet/Wound Care/Special Instructions: Continue Cardizem 60 mg to be used only as needed 4 times a day if patient has symptoms of palpitations and fast heartbeat follow-up in the office with Dr. Velasquez and cardiac catheterization can be scheduled as an outpatient Continue supportive care for the acute covid infection Repeat blood work in 2 to 3 days Discharge Disposition: HOME SELF-CARE
== END 2024-08-03 17:11 | disposition home or self-care (01) | DRG 280 ==
LOC: EC 23:26 → 6NMEDSUR 07-30 02:17 → 3SCARD 07-30 05:47 → OBSVTOIN 08-01 08:11
PROVIDERS: ADMIT Hospitalist; ATTEND Hospitalist
DX: I48.91 Unspecified atrial fibrillation (principal); U07.1 COVID-19; I21.4 Non-ST elevation (NSTEMI) myocardial infarction; I50.22 Chronic systolic (congestive) heart failure; I49.5 Sick sinus syndrome; I42.9 Cardiomyopathy, unspecified; I11.0 Hypertensive heart disease with heart failure; Z95.1 Presence of aortocoronary bypass graft; J44.9 Chronic obstructive pulmonary disease, unspecified; E11.9 Type 2 diabetes mellitus without complications; I48.0 Paroxysmal atrial fibrillation; D64.9 Anemia, unspecified; I08.0 Rheumatic disorders of both mitral and aortic valves; I47.10 Supraventricular tachycardia, unspecified; I25.10 Atherosclerotic heart disease of native coronary artery without angina pectoris; E78.5 Hyperlipidemia, unspecified; Z79.01 Long term (current) use of anticoagulants; Z79.82 Long term (current) use of aspirin; Z79.84 Long term (current) use of oral hypoglycemic drugs; Z79.899 Other long term (current) drug therapy; Z85.828 Personal history of other malignant neoplasm of skin; Z87.891 Personal history of nicotine dependence; I25.2 Old myocardial infarction
CPT/HCPCS: 36415; 71045; 71046; 80048; 80053; 80061; 83036; 83605; 83735; 83880; 84100; 84484; 85025; 85379; 85610; 85730; 87040; 87636; 93005; 93306; 94640; 94760; 96361; 96374; 99291

== ENCOUNTER → 2024-08-09 | Outpatient (CLI) | payer MEDICARE ==
[2024-08-09 19:03] LABS: Basophils # (A) 0.02 X 10*3/uL (0.00-0.10); Basophils % (A) 0.3 %; Eosinophils # (A) 0.07 X 10*3/uL (0.04-0.35); Eosinophils % (A) 1.1 %; HCT 36.6 % (39.6-50.0); HGB 11.7 g/dL (13.0-17.0); Lymphocytes # (A) 1.45 X 10*3/uL (0.90-5.00); MCH 32.9 pg (27.0-32.0); MCV 102.8 FL (80.0-97.0); Mean Platelet Volume 11.4 FL (9.5-12.2); Monocytes # (A) 1.11 X 10*3/uL (0.20-1.00); Monocytes % (A) 16.8 %; NRBC Per 100 WBC 0 X 10*3/uL (0.00-0.01); Neutrophils # (A) 3.81 X 10*3/uL (1.80-7.70); Neutrophils % (A) 57.7 %; Platelet Count 189 X 10*3/uL (140-440); RBC 3.56 X 10*6/uL (4.40-5.60); RDW 13.9 % (11.5-14.5)
[2024-08-09 19:05] LABS: Blood Urea Nitrogen 22.4 mg/dL (9.0-27.0); Calcium 8.7 mg/dL (8.7-10.3); Carbon Dioxide 27.3 mmol/L (21.6-31.8); Chloride 106 mmol/L (96-109); Glucose 124 mg/dL (70-110); Potassium 4.3 mmol/L (3.5-5.5); Sodium 144 mmol/L (135-145)
== END | disposition home or self-care (01) ==
LOC: LABWHC1 13:11
PROVIDERS: ATTEND Nurse Practitioner Family
DX: E87.1 Hypo-osmolality and hyponatremia (principal)
CPT/HCPCS: 36415; 80048; 85025

== ENCOUNTER → 2024-09-22 | Outpatient (CLI) | payer MEDICARE ==
--- NOTE | 2024-09-22 10:50 | US ---
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 Ch olecystectomy TECHNIQUE: Grayscale and color Doppler imaging of the abdomen was performed. FINDINGS: EXAM MEASUREMENTS: Liver Length: 14.0 cm Gallbladder Wall: Surgically absent CBD: 0.57 cm Spleen: 11.3 cm Right Kidney: 9.3 x 4.4 x 5.1 cm Left Kidney: 11.3 x 3.7 x 4.7 cm HOSPICE CARE TRANSITIONS COORDINATOR NOTES: Pancreas: parts seen appear wnl Liver: heterogeneous Gallbladder: Surgically absent CBD: wnl Spleen: isoechoic area seen adjacent to spleen measuring 2.3 x 3.2 x 2.0cm ? accessory spleen Right Kidney: wnl Left Kidney: cystic area seen mid pole measuring 1.8 x 1.3 x 1.0cm Upper IVC: not well visualized Abd Aorta: limited due to bowel gas, plaque seen, but appears wnl The liver is heterogenous without focal lesion. Noncirrhotic appearance. The upper IVC is not well vi sualized due to overlying bowel gas. The midportion of the abdominal aorta is within normal limits. T he proximal portion is obscured by overlying bowel gas. The distal portion demonstrates ectasia measu ring up to 2.7 cm. The gallbladder is surgically absent. Common bile duct is unremarkable. The visua lized portions of the pancreas are homogenous. The spleen is unremarkable. Incidental splenule. Kidn eys are symmetric and free of hydronephrosis. Simple left midpole 1.8 cm cyst. No right renal lesions . IMPRESSION: 1. No ultrasound evidence for acute process. 2. 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 3. Postcholecystectomy changes. 4. Left simple renal cyst. 5. 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 [facility], , 09/22/2024 10:48 AM
== END | disposition home or self-care (01) ==
LOC: RADUSWWP 07:47
PROVIDERS: ATTEND Internal Medicine
CPT/HCPCS: 76700

== ENCOUNTER 2024-10-12 17:32 | Emergency (ER) | payer MEDICARE ==
--- NOTE | 2024-10-12 18:01 | ED ---
SOB HPI - General Stated Complaint: SOB Time Seen by Provider: 10/12/24 17:37 Source: RN notes reviewed, old records reviewed Mode of arrival: ambulatory Limitations: no limitations - History of Present Illness Initial Comments: This is an 84-year-old male to the ER for evaluation today. Patient was today for evaluation of palpitations and shortness of breath with no acute symptoms on arrival to the ER. Patient called EMS because he was worried about his shortness of breath but now in the ER symptoms are resolved MD Complaint: shortness of breath -: days(s) Severity: moderate Severity scale (1-10): 4 Quality: dull Consistency: constant Improves With: nothing Worsens With: nothing Context: recent URI, recent illness Associated Symptoms: denies other symptoms - Related Data Home Medications Medication Instructions Recorded Confirmed Vit C/E/Zn/Coppr/Lutein/Zeaxan 1 cap PO BID 07/05/23 07/30/24 [Preservision Areds 2 Softgel] Previous Rx's Medication Instructions Recorded Apixaban [Eliquis] 5 mg PO BID #60 tab 12/04/18 Isosorbide Mononitrate ER [Imdur] 60 mg PO DAILY #30 tab.er.24h 12/04/18 Amiodarone [Cordarone] 100 mg PO DAILY #30 tab 08/03/24 Ascorbic Acid [Vitamin C] 500 mg PO DAILY #0 tab 08/03/24 Aspirin 81 mg PO DAILY #30 tab 08/03/24 Atorvastatin [Lipitor] 20 mg PO DAILY #30 tab 08/03/24 Benzonatate [Tessalon Perles] 100 mg PO TID PRN #20 cap 08/03/24 Cholecalciferol [Vitamin D3 (25 50 mcg PO DAILY tab 08/03/24 Mcg = 1000 Iu)] Dapagliflozin Propanediol [Farxiga] 10 mg PO DAILY #30 tab 08/03/24 Diltiazem Oral [Cardizem*] 60 mg PO QID PRN #20 tab 08/03/24 Furosemide [Lasix] 20 mg PO DAILY #30 tab 08/03/24 Losartan [Cozaar] 50 mg PO DAILY #30 tab 08/03/24 Metoprolol Succinate (ER) [Toprol 12.5 mg PO DAILY #30 tab 08/03/24 XL] Zinc Sulfate [Orazinc] 220 mg PO DAILY #14 cap 08/03/24 Allergies Allergy/AdvReac Type Severity Reaction Status Date / Time No Known Allergies Allergy Verified 10/12/24 18:06 Review of Systems ROS Statement: Those systems with pertinent positive or pertinent negative responses have been documented in the HPI. ROS Other: All systems not noted in ROS Statement are negative. 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 Absent: scleral icterus, c onjunctival injection, periorbital swelling ENT exam: Present: normal exam, mucous membranes moist Neck exam: Present: normal inspection. Absent: tenderness, meningismus, lymphadenopathy Respiratory exam: Present: normal lung sounds bilaterally. Absent: respiratory distress, wheezes, rales, rhonchi, stridor Cardiovascular Exam: Present: regular rate, normal rhythm, normal heart sounds. Absent: systolic murmur, diastolic murmur, rubs, gallop, clicks GI/Abdominal exam: Present: soft, normal bowel sounds. Absent: distended, tenderness, guarding, rebound, rigid Extremities exam: Present: normal inspection, full ROM, normal capillary refill. Absent: tenderness, pedal edema, joint swelling, calf tenderness Back exam: Present: normal inspection Neurological exam: Present: alert, oriented X3, CN II-XII intact Psychiatric exam: Present: normal affect, normal mood Skin exam: Present: warm, dry, intact, normal color. Absent: rash Course Vital Signs 10/12/24 18:02 Temperature 98 F Pulse Rate 51 L Respiratory 18 Rate Blood Pressure 150/60 O2 Sat by Pulse 93 L Oximetry - Reevaluation(s) Reevaluation #1: 10/12/24 19:59 Records reviewed Reevaluation #2: 10/12/24 19:59 Patient informed of results and questions answered Reevaluation #3: 10/12/24 19:59 Patient informed of results and questions answered Reevaluation #4: Was pt. sent in by a medical professional or institution ([facility]I Bustillos, [employer], urgent care, hospital, or group home...) When possible be specific @ -no Did you speak to anyone other than the patient for history (EMS, parent, family, police, friend...)? What history was obtained from this source @ -no Did you review nursing and triage notes (agree or disagree)? Why? @ -agree Are old charts reviewed (outside hosp., previous admission, EMS record, old EKG, old radiological studies, urgent care reports/EKG's, group home records)? Report findings @ -yes Differential Diagnosis (chest pain, altered mental status, abdominal pain women, abdominal pain men, vaginal bleeding, weakness, fever, dyspnea, syncope, headache, dizziness, GI bleed, back pain, seizure, CVA, palpatations, mental health, musculoskeletal)? @ -prior EKG interpreted by me (3pts min.). @ -yes X-rays interpreted by me (1pt min.). @ -yes negative for acute disease CT interpreted by me (1pt min.). @ -no U/S interpreted by me (1pt. min.). @ -no What testing was considered but not performed or refused? (CT, X-rays, U/S, labs)? Why? @ -none What meds were considered but not given or refused? Why? @ -none Did you discuss the management of the patient with other professionals (professionals i.e. TORI Bustillos, SAND CAR WORKER, lab, RT, psych nurse, social services analyst, divorce lawyer, teacher, biological technical officer, window caser)? Give summary @ -no Was smoking cessation discussed for >3mins.? @ -no Was critical care preformed (if so, how long)? @ -no Were there social determinants of health that impacted care today? How? (Homelessness, low income, unemployed, alcoholism, drug addiction, transportation, low edu. Level, literacy, decrease access to med. care, senior living, rehab)? @ -none Was there de-escalation of care discussed even if they declined (Discuss DNR or withdrawal of care, Hospice)? DNR status @ -no What co-morbidities impacted this encounter? (DM, HTN, Smoking, COPD, CAD, Cancer, CVA, ARF, Chemo, Hep., AIDS, mental health diagnosis, sleep apnea, morbid obesity)? @ -none Was patient admitted / discharged? Hospital course, mention meds given and route, prescriptions, significant lab abnormalities, going to OR and other pertinent info. @ - Undiagnosed new problem with uncertain prognosis? @ -no Drug Therapy requiring intensive monitoring for toxicity (Heparin, Nitro, Insulin, Cardizem)? @ -no Were any procedures done? @ -no Diagnosis/symptom? @ - Acute, or Chronic, or Acute on Chronic? @ -Acute Uncomplicated (without systemic symptoms) or Complicated (systemic symptoms)? @ -Complicated Side effects of treatment? @ -no Exacerbation, Progression, or Severe Exacerbation? @ -exacerbation Poses a threat to life or bodily function? How? (Chest pain, [place], [place], pneumonia, PE, COPD, DKA, ARF, appy, cholecystitis, CVA, Diverticulitis, Homicidal, Suicidal, threat to staff... and all critical care pts) @ -yes Reevaluation #5: Differential Palpitations Ventricular arrhythmias, atrial arrhythmias, myocardial infarction, anemia, thyrotoxicosis, electrolyte imbalance, hypokalemia, pulmonary embolism, pulmonary disease, drugs, alcohol, anxiety, stress.... This is not meant to be an all-inclusive list. Medical Decision Making - Medical Decision Making 84 female to the ER for evaluation patient presents today for evaluation regards to palpitations, symptoms resolved on arrival to the ER patient feels well can be discharged home - Lab Data Result diagrams: 10/12/24 18:17 10/12/24 18:17 Lab Results 10/12/24 10/12/24 10/12/24 Range/Units 18:17 18:17 18:17 WBC 7.6 (3.8-10.6) k/uL RBC 4.49 (4.30-5.90) m/uL Hgb 14.2 (13.0-17.5) gm/dL Hct 44.1 (39.0-53.0) % MCV 98.1 (80.0-100.0) fL MCH 31.6 (25.0-35.0) pg MCHC 32.2 (31.0-37.0) g/dL RDW 14.0 (11.5-15.5) % Plt Count 224 (150-450) k/uL MPV 8.5 Neutrophils % 66 % Lymphocytes % 20 % Monocytes % 8 % Eosinophils % 4 % Basophils % 0 % Neutrophils # 5.0 (1.3-7.7) k/uL Lymphocytes # 1.5 (1.0-4.8) k/uL Monocytes # 0.6 (0-1.0) k/uL Eosinophils # 0.3 (0-0.7) k/uL Basophils # 0.0 (0-0.2) k/uL PT 12.1 (10.0-12.5) sec INR 1.1 (<1.2) APTT 34.8 H (22.0-30.0) sec Sodium 140 (137-145) mmol/L Potassium 3.5 (3.5-5.1) mmol/L Chloride 104 (98-107) mmol/L Carbon Dioxide 31 H (22-30) mmol/L Anion Gap 5 mmol/L BUN 24 H (9-20) mg/dL Creatinine 1.15 (0.66-1.25) mg/dL Est GFR (CKD-EPI)AfAm 68 (>60 ml/min/1.73 sqM) Est GFR (CKD-EPI)NonAf 59 (>60 ml/min/1.73 sqM) Glucose 136 H (74-99) mg/dL Calcium 8.7 (8.4-10.2) mg/dL Phosphorus 3.1 (2.5-4.5) mg/dL Magnesium 2.4 H (1.6-2.3) mg/dL Total Bilirubin 2.9 H (0.2-1.3) mg/dL AST 23 (17-59) U/L ALT 14 (4-49) U/L Alkaline Phosphatase 94 (38-126) U/L Troponin I (0.000-0.034) ng/mL NT-Pro-B Natriuret Pep 724 pg/mL Total Protein 6.7 (6.3-8.2) g/dL Albumin 4.0 (3.5-5.0) g/dL 10/12/24 Range/Units 18:17 WBC (3.8-10.6) k/uL RBC (4.30-5.90) m/uL Hgb (13.0-17.5) gm/dL Hct (39.0-53.0) % MCV (80.0-100.0) fL MCH (25.0-35.0) pg MCHC (31.0-37.0) g/dL RDW (11.5-15.5) % Plt Count (150-450) k/uL MPV Neutrophils % % Lymphocytes % % Monocytes % % Eosinophils % % Basophils % % Neutrophils # (1.3-7.7) k/uL Lymphocytes # (1.0-4.8) k/uL Monocytes # (0-1.0) k/uL Eosinophils # (0-0.7) k/uL Basophils # (0-0.2) k/uL PT (10.0-12.5) sec INR (<1.2) APTT (22.0-30.0) sec Sodium (137-145) mmol/L Potassium (3.5-5.1) mmol/L Chloride (98-107) mmol/L Carbon Dioxide (22-30) mmol/L Anion Gap mmol/L BUN (9-20) mg/dL Creatinine (0.66-1.25) mg/dL Est GFR (CKD-EPI)AfAm (>60 ml/min/1.73 sqM) Est GFR (CKD-EPI)NonAf (>60 ml/min/1.73 sqM) Glucose (74-99) mg/dL Calcium (8.4-10.2) mg/dL Phosphorus (2.5-4.5) mg/dL Magnesium (1.6-2.3) mg/dL Total Bilirubin (0.2-1.3) mg/dL AST (17-59) U/L ALT (4-49) U/L Alkaline Phosphatase (38-126) U/L Troponin I <0.012 (0.000-0.034) ng/mL NT-Pro-B Natriuret Pep pg/mL Total Protein (6.3-8.2) g/dL Albumin (3.5-5.0) g/dL - EKG Data -: EKG Interpreted by Me (EKG is bradycardia 48 NC 220 QRS 110 QTc 441) - Radiology Data Radiology results: report reviewed, image reviewed Disposition Clinical Impression: Palpitations Disposition: HOME SELF-CARE Condition: Good Instructions (If sedation given, give patient instructions): Heart Palpitations (ED) Is patient prescribed a controlled substance at d/c from ED?: No Referrals: Osmin Osuna MD [Primary Care Provider] - 1-2 days Time of Disposition: 20:20
[2024-10-12 18:05] VITALS: TEMP 98
[2024-10-12] MEDS: SODIUM CHLORIDE 0.9% 1,000 ML IV STA (18:20)
[2024-10-12 18:45] LABS: Basophils % (A) 0 %; Eosinophils # (A) 0.3 k/uL (0-0.7); Eosinophils % (A) 4 %; HCT 44.1 % (39.0-53.0); HGB 14.2 gm/dL (13.0-17.5); Lymphocytes # (A) 1.5 k/uL (1.0-4.8); Lymphocytes % (A) 20 %; MCH 31.6 pg (25.0-35.0); MCHC 32.2 g/dL (31.0-37.0); MCV 98.1 fL (80.0-100.0); Mean Platelet Volume 8.5; Monocytes # (A) 0.6 k/uL (0-1.0); Monocytes % (A) 8 %; Neutrophils % (A) 66 %; Platelet Count 224 k/uL (150-450); RBC 4.49 m/uL (4.30-5.90); WBC 7.6 k/uL (3.8-10.6)
[2024-10-12 18:55] LABS: ALT 14 U/L (4-49); AST 23 U/L (17-59); African American GFR (CKD) 68 (>60 ml/min/1.73 sqM); Alkaline Phosphatase 94 U/L (38-126); Anion Gap 5 mmol/L; Blood Urea Nitrogen 24 mg/dL (9-20); Calcium 8.7 mg/dL (8.4-10.2); Carbon Dioxide 31 mmol/L (22-30); Chloride 104 mmol/L (98-107); Glucose 136 mg/dL (74-99); Magnesium 2.4 mg/dL (1.6-2.3); Non-African American GFR(CKD) 59 (>60 ml/min/1.73 sqM); Phosphorus 3.1 mg/dL (2.5-4.5); Potassium 3.5 mmol/L (3.5-5.1); Sodium 140 mmol/L (137-145); Total Bilirubin 2.9 mg/dL (0.2-1.3); Total Protein 6.7 g/dL (6.3-8.2)
[2024-10-12 19:01] LABS: INR 1.1 (<1.2); Partial Thromboplastin Time 34.8 sec (22.0-30.0); Prothrombin Time 12.1 sec (10.0-12.5)
[2024-10-12 19:02] LABS: NT-Pro-B-Type Natriuretic Pept 724 pg/mL
--- NOTE | 2024-10-12 19:25 | XR ---
EXAMINATION TYPE: XR chest 2V DATE OF EXAM: 10/12/2024 7:11 PM COMPARISON: Chest radiograph 08/02/2024. CLINICAL INDICATION: Male, 84 years old with history of sob; [facility] TECHNIQUE: XR chest 2V Frontal and lateral views of the chest. FINDINGS: Cardiomegaly and bilateral pulmonary vascular congestion. No sizable pleural effusion. Median sternotomy wires noted and post surgical changes of previous CABG. No pneumothorax. No acute osseous abnormality. IMPRESSION: Cardiomegaly and pulmonary vascular congestive changes. No sizable pleural effusion. [facility], , 10/12/2024 7:22 PM
[2024-10-12 20:27] VITALS: BP 169/63; PULSE 50; RESP 20
== END 2024-10-12 20:27 | disposition home or self-care (01) ==
LOC: EC 17:32
DX: R00.2 Palpitations (principal); Z87.891 Personal history of nicotine dependence
CPT/HCPCS: 36415; 71046; 80053; 83735; 83880; 84100; 84484; 85025; 85610; 85730; 93005; 96360; 99285

== ENCOUNTER 2025-03-09 14:04 | Emergency (ER) | payer MEDICARE ==
[2025-03-09 14:08] VITALS: TEMP 97.5
--- NOTE | 2025-03-09 14:23 | ED ---
General Adult HPI - General Chief complaint: Chest Pain Stated complaint: chest pain, back pain Time Seen by Provider: 03/09/25 14:10 Source: patient, family Mode of arrival: ambulatory Limitations: no limitations - History of Present Illness Initial comments: Dictation was produced using [employer] dictation software. please excuse any grammatical, word or spelling errors. Chief Complaint: 84-year-old male with thoracic back pain History of Present Illness: Patient is 84-year-old male with acute on chronic thoracic back pain. Patient states for the last couple days his thoracic pain pain has been getting worse. States when he is at rest it does not hurt when he tries to move around uses up extremities twist or bend over he states that he has pain. Denies any shortness of breath. No chest pain. Pain does not radiate. No extremity weakness or paresthesias. The ROS documented in this emergency department record has been reviewed and confirmed by me. Those systems with pertinent positive or negative responses have been documented in the HPI. All other systems are other negative and/or noncontributory. - Related Data Home Medications Medication Instructions Recorded Confirmed Empagliflozin [Jardiance] 25 mg PO HS 03/09/25 03/09/25 Losartan [Cozaar] 100 mg PO DAILY 03/09/25 03/09/25 Metoprolol Tartrate [Lopressor] 12.5 mg PO DAILY 03/09/25 03/09/25 amLODIPine [Norvasc] 5 mg PO BID 03/09/25 03/09/25 dilTIAZem HCL 60 mg PO DAILY 03/09/25 03/09/25 Previous Rx's Medication Instructions Recorded Apixaban [Eliquis] 5 mg PO BID #60 tab 12/04/18 Isosorbide Mononitrate ER [Imdur] 60 mg PO DAILY #30 tab.er.24h 12/04/18 Amiodarone [Cordarone] 100 mg PO DAILY #30 tab 08/03/24 Atorvastatin [Lipitor] 20 mg PO DAILY #30 tab 08/03/24 Furosemide [Lasix] 20 mg PO DAILY #30 tab 08/03/24 Allergies Allergy/AdvReac Type Severity Reaction Status Date / Time No Known Allergies Allergy Verified 03/09/25 14:28 Review of Systems ROS Statement: Those systems with pertinent positive or pertinent negative responses have been documented in the HPI. ROS Other: All systems not noted in ROS Statement are negative. 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, hemorrhoidectomy Past Anesthesia/Blood Transfusion Reactions: No Reported Reaction Past Psychological History: No Psychological Hx Reported Smoking Status: Former smoker Past Alcohol Use History: None Reported Past Drug Use History: None Reported - Past Family History Father Family Medical History: Myocardial Infarction ([place]) Mother Family Medical History: CVA/TIA General Exam - General Exam Comments Initial Comments: PHYSICAL EXAM: General Impression: Alert and oriented x3, not in acute distress HEENT: Normocephalic atraumatic, extra-ocular movements intact, pupils equal and reactive to light bilaterally, mucous membranes moist. Cardiovascular: Heart regular rate and rhythm Chest: Able to complete full sentences, no retractions, no tachypnea Abdomen: abdomen soft, non-tender, non-distended, no organomegaly Musculoskeletal: Pulses present and equal in all extremities, no peripheral edema Motor: no focal deficits noted Neurological: CN II-XII grossly intact, no focal motor or sensory deficits noted Skin: Intact with no visualized rashes Psych: Normal affect and mood Limitations: no limitations Course Vital Signs 03/09/25 14:07 Temperature 97.5 F L Pulse Rate 58 L Respiratory 16 Rate Blood Pressure 144/69 O2 Sat by Pulse 95 Oximetry EKG Findings - EKG Comments: EKG Findings:: My EKG interpretation: Ventricular rate 7, minimal to 23, QRS 110, QTc 209. No HI prolongation, no QTC prolongation, no ST or T-wave changes noted. EKG compared to October 12, 2024 showing no changes. Overall, this EKG is unremarkable Medical Decision Making - Medical Decision Making Was pt. sent in by a medical professional or institution (, PA, CERTIFIED WELLNESS PROGRAM COORDINATOR, urgent care, hospital, or custodial...) When possible be specific @ -No Did you speak to anyone other than the patient for history (EMS, parent, family, police, friend...)? What history was obtained from this source @ -No Did you review nursing and triage notes (agree or disagree)? Why? @ -I reviewed and agree with nursing and triage notes Were old charts reviewed (outside hosp., previous admission, EMS record, old EKG, old radiological studies, urgent care reports/EKG's, custodial records)? Report findings @ -No old charts were reviewed Differential Diagnosis (chest pain, altered mental status, abdominal pain women, abdominal pain men, vaginal bleeding, musculoskeletal, weakness, fever, dyspnea, syncope, headache, dizziness, GI bleed, back pain, seizure, CVA, palpatations, mental health)? @ -Strain, muscle strain, cervical strain EKG interpreted by me (3pts min.). @ -None done X-rays interpreted by me (1pt min.). @ -None done CT interpreted by me (1pt min.). @ -CT thoracic spine shows degenerative joint U/S interpreted by me (1pt. min.). @ -None done What testing was considered but not performed or refused? (CT, X-rays, U/S, labs)? Why? @ -None What meds were considered but not given or refused? Why? @ -None Was smoking cessation discussed for >3mins.? @ -No Were there social determinants of health that impacted care today? How? (Homelessness, low income, unemployed, alcoholism, drug addiction, transportation, low edu. Level, literacy, decrease access to med. care, snf, rehab)? @ -No Was there de-escalation of care discussed even if they declined (Discuss DNR or withdrawal of care, Hospice)? DNR status @ -No What co-morbidities impacted this encounter? (DM, HTN, Smoking, COPD, CAD, Cancer, CVA, ARF, Chemo, Hep., AIDS, mental health diagnosis, sleep apnea, morbid obesity)? @ -None Was patient admitted / discharged? Hospital course, mention meds given and route, prescriptions, significant lab abnormalities, going to OR and other pertinent info. @ -84-year-old male presents to the emergency department musculoskeletal back pain. States that he has pain to his right trapezius area whenever he tries to move. States that it is not apparent at rest. Vital signs are stable. EKG is unremarkable. Imaging study shows no acute processes. Patient discharged advised follow-up with primary care doctor. Did you discuss the management of the patient with other professionals (professionals i.e. , PA, CERTIFIED WELLNESS PROGRAM COORDINATOR, lab, RT, psych nurse, licensed master social worker, molded candles wicker, teacher, occupational medicine officer, gearcase assembler)? Give summary @ -No Was critical care preformed (if so, how long)? @ -No Undiagnosed new problem with uncertain prognosis? @ -No Drug Therapy requiring intensive monitoring for toxicity (Heparin, Nitro, Insulin, Cardizem)? @ -No Were any procedures done? @ -No Diagnosis/symptom? Acute, or Chronic, or Acute on Chronic? Uncomplicated (without systemic symptoms) or Complicated (systemic symptoms)? @ -Back strain Side effects of treatment? @ -No Exacerbation, Progression, or Severe Exacerbation? @ -No Poses a threat to life or bodily function? How? (Chest pain, [place], [place], pneumonia, PE, COPD, DKA, ARF, appy, cholecystitis, CVA, Diverticulitis, Homicidal, Suicidal, threat to staff... and all critical care pts) @ -No Disposition Clinical Impression: Back strain Disposition: HOME SELF-CARE Condition: Good Instructions (If sedation given, give patient instructions): Thoracic Back Strain (ED) Is patient prescribed a controlled substance at d/c from ED?: No Referrals: Osmin Osuna MD [Primary Care Provider] - 1-2 days Time of Disposition: 15:18
--- NOTE | 2025-03-09 14:57 | CT ---
EXAMINATION TYPE: CT thoracic spine wo con DATE OF EXAM: 03/09/2025 COMPARISON: None CLINICAL INDICATION: Male, 84 years old with history of pain; [facility], Back pain CT DLP: 862.1 mGycm Automated exposure control for dose reduction was used. FINDINGS: The thoracic vertebral segments are normal in height and alignment and there is no fracture or sublux ation. There is moderate anterior spondylosis at multiple levels in the lower thoracic spine indicating mild degenerative disc disease in lower thoracic spine. Technique limited for disc herniation but no larg e disc herniations are seen. There is no bony encroachment of the spinal canal. The paraspinal soft tissues are unremarkable. IMPRESSION: 1. No thoracic spine fracture or malalignment. 2. 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
[2025-03-09 15:25] VITALS: BP 134/84; PULSE 47; RESP 20
== END 2025-03-09 15:30 | disposition home or self-care (01) ==
LOC: EC 14:04
DX: S39.012A Strain of muscle, fascia and tendon of lower back, initial encounter (principal); Z87.891 Personal history of nicotine dependence; X50.9XXA Other and unspecified overexertion or strenuous movements or postures, initial encounter
CPT/HCPCS: 72128; 93005; 99285